=== PATIENT | male | born 1940 | race African-American/Black ===

== ENCOUNTER 2016-06-19 15:22 | Day surgery (SDC) | payer MEDICARE ==
[2016-06-19] MEDS ORDERED: NALOXONE HCL INJ/PF 0.4 MG/1 ML SDV ONE (15:43)
[2016-06-19] MEDS ORDERED: PROMETHAZINE HCL INJ 25 MG/1 ML VIAL ONE (15:43)
[2016-06-19] MEDS ORDERED: FENTANYL CITRATE INJ/PF 100 MCG/2 ML AMPUL ONE ×2 (15:44)
[2016-06-19] MEDS ORDERED: MIDAZOLAM 2 MG/2 ML INJ ONE (15:44)
[2016-06-19] MEDS ORDERED: FLUMAZENIL INJ 0.5 MG/5 ML VIAL IV ONE (15:45)
[2016-06-19] MEDS ORDERED: EPINEPHRINE INJ 1 MG/10 ML DISP.SYRIN ONE (15:45)
[2016-06-19] MEDS ORDERED: GLUCAGON,HUMAN RECOMB 1 MG INJ ONE (15:45)
[2016-06-19] MEDS: MIDAZOLAM 2 MG/2 ML INJ ONE ×2 (17:24→17:40)
--- NOTE | 2016-06-19 18:12 | Operative Report ---
Operative Report DATE OF SURGERY: 06/19/16 Operative Report: Pre-op diagnosis: Anemia Post-op diagnosis: 1. Antral gastritis 2. Polyps in the cecum, transverse, and the sigmoid colon Surgery: Upper endoscopy with biopsy , Colonoscopy with polypectomy Medications: Versed 2mg, Fentanyl 100mcg IV push Tissue removed: Antral biopsy and multiple colon polyps Procedure: After informed consent obtained from patient, patient's pharynx was sprayed with Hurricane and conscious sedation was achieved. The upper endoscope was then inserted into the esophagus under direct vision and advanced into the stomach and further into the duodenum. Detailed examination of the duodenum, stomach and the esophagus was then performed. A digital rectal examination was performed and this was unremarkable. The colonoscope was inserted into the rectum and advanced to the cecum. The appendiceal orifice and the terminal ileum were both identified. The mucosa was examined into details as the colonoscope was slowly pulled out of the patient. The endoscope was retroflexed in the rectum. Patient tolerated the procedure well. Findings Esophagus: Normal Stomach: Mild to moderate erythema in the gastric antrum Duodenum: Normal Cecum: Two 4 mm polyps removed with the cold snare Ascending colon: Normal Transverse colon: 5 mm polyp removed with the cold snare Descending colon: Normal Sigmoid colon: Four 6-11 mm polyps removed with a hot snare Rectum: Normal except for internal hemorrhoids Plan: Await pathology. Continue Nexium. Repeat colonoscopy in three years OPERATION: .
--- NOTE | 2016-06-19 18:13 | PDOC DISCHARGE SUMMARY ---
Discharge Summary (SDC) - Discharge Final Diagnosis: Gastritis and multiple colon polyps Date of Surgery: 06/19/16 Condition: Stable Treatment or Instructions: No new medications Discharge Diet: As Tolerated Discharge Activity: Activity As Tolerated Report the Following to Your Physician Immediately: Vomiting, Redness, Swelling , Warmth
[2016-06-19 19:12] VITALS: BP 134/51
== END 2016-06-19 19:05 | disposition home or self-care (01) ==
LOC: END 15:22
PROVIDERS: ATTEND Internal Medicine Gastroenterology
PROC: 0DBL8ZX Excision of Transverse Colon, Via Natural or Artificial Opening Endoscopic, Diagnostic (ICD-10-PCS; 2016-06-19)
PROC: 0DBN8ZX Excision of Sigmoid Colon, Via Natural or Artificial Opening Endoscopic, Diagnostic (ICD-10-PCS; 2016-06-19)
PROC: 0DB68ZX Excision of Stomach, Via Natural or Artificial Opening Endoscopic, Diagnostic (ICD-10-PCS; principal; 2016-06-19 15:45)
PROC: 0DBH8ZX Excision of Cecum, Via Natural or Artificial Opening Endoscopic, Diagnostic (ICD-10-PCS; 2016-06-19 15:45)
DX: D50.0 Iron deficiency anemia secondary to blood loss (chronic) (principal); K59.01 Slow transit constipation; R63.4 Abnormal weight loss; K29.50 Unspecified chronic gastritis without bleeding; D12.0 Benign neoplasm of cecum; D12.3 Benign neoplasm of transverse colon; D12.5 Benign neoplasm of sigmoid colon; J44.9 Chronic obstructive pulmonary disease, unspecified; D64.9 Anemia, unspecified; I10 Essential (primary) hypertension; E78.00 Pure hypercholesterolemia, unspecified; K92.1 Melena; R63.0 Anorexia; Z79.899 Other long term (current) drug therapy; Z79.51 Long term (current) use of inhaled steroids; Z99.81 Dependence on supplemental oxygen; Z99.3 Dependence on wheelchair; Z68.1 Body mass index [BMI] 19.9 or less, adult
CPT/HCPCS: 43239; 45385; 88342 ×2; 88304 ×2; J2250; J3010; J0171; J1610; J2310; J2550; J3490

== ENCOUNTER 2016-06-26 18:20 | Inpatient (IN) | payer MEDICARE ==
[2016-06-26] MEDS ORDERED: NORMAL SALINE 1000 ML 1,000 ML IV ONE (18:32)
--- NOTE | 2016-06-26 18:56 | ER Document Report ---
ED GI Bleed / Rectal Pain <PADMINI OLSON - Last Filed: 06/26/16 19:52> - General Mode of Arrival: Medic Information source: Patient TRAVEL OUTSIDE OF THE [place] IN LAST 30 DAYS: No - HPI Patient complains to provider of: Dark red bld from rectum Onset: Yesterday Timing/Duration: Sudden, Persistent Recently seen / treated by doctor: Yes - colonoscopy 06/19/2016 <SHELLI DUNNE - Last Filed: 06/26/16 20:35> - General Chief Complaint: Rectal Bleeding Stated Complaint: RECTAL BLEEDING Notes: Patient is a 75-year-old male presenting to the emergency department concerned of rectal bleeding onset last night. Patient thought he was having a bowel movement, but instead blood came out. Patient describes it as very dark red. Patient denies any lightheadedness, but states that he becomes short of breath with walking. Last Saturday patient had a colonoscopy. Polyps as well as gastritis were noted. He received fluid bolus en route. Patient was also continued on a blood thinner. (SHELLI DUNNE) - Related Data Allergies/Adverse Reactions: No Known Allergies Allergy (Verified 06/19/16 15:21) Past Medical History - General Information source: Patient - Social History Smoking Status: Unknown if Ever Smoked Family History: Reviewed & Not Pertinent - Past Medical History Cardiac Medical History: Reports: Hx Atrial Fibrillation - paroxysmal, Hx Coronary Artery Disease, Hx Hypercholesterolemia, Hx Hypertension Denies: Hx Heart Attack Pulmonary Medical History: Reports: Hx Asthma, Hx Bronchitis, Hx COPD, Hx Pneumonia - september 2011, Hx Respiratory Failure Denies: Hx Tuberculosis Neurological Medical History: Denies: Hx Cerebrovascular Accident, Hx Seizures Renal/ Medical History: Reports: Hx Benign Prostatic Hyperplasia, Hx Kidney Stones GI Medical History: Reports: Hx Hiatal Hernia Musculoskeltal Medical History: Reports Hx Arthritis Past Surgical History: Reports: Hx Pacemaker - Immunizations Hx Diphtheria, Pertussis, Tetanus Vaccination: Yes Hx Pneumococcal Vaccination: 04/29/10 <SHELLI DUNNE - Last Filed: 06/26/16 20:35> Review of Systems - Review of Systems Constitutional: No symptoms reported EENT: No symptoms reported Cardiovascular: No symptoms reported. denies: Lightheaded Respiratory: See HPI, Short of breath - With walking Gastrointestinal: No symptoms reported Genitourinary: No symptoms reported Male Genitourinary: No symptoms reported Musculoskeletal: No symptoms reported Skin: No symptoms reported Hematologic/Lymphatic: No symptoms reported Neurological/Psychological: No symptoms reported -: Yes All other systems reviewed and negative <SHELLI DUNNE - Last Filed: 06/26/16 20:35> Physical Exam - Vital signs Interpretation: Hypotensive, Tachycardic - General General appearance: Alert - HEENT Head: Normocephalic, Atraumatic Eyes: Normal Pupils: PERRL - Respiratory Respiratory status: No respiratory distress Chest status: Nontender Breath sounds: Normal Chest palpation: Normal - Cardiovascular Rhythm: Regular Heart sounds: Normal auscultation Murmur: No - Abdominal Inspection: Normal Distension: No distension Bowel sounds: Normal Tenderness: Nontender Organomegaly: No organomegaly - Rectal Stool: Heme positive, Bloody Hemorrhoids: External - Back Back: Normal, Nontender - Extremities General upper extremity: Normal inspection General lower extremity: Normal inspection - Neurological Neuro grossly intact: Yes Cognition: Normal Orientation: AAOx4 Rajeev Coma Scale Eye Opening: Spontaneous Rajeev Coma Scale Verbal: Oriented Rajeev Coma Scale Motor: Obeys Commands Rajeev Coma Scale Total: 15 Speech: Normal - Psychological Associated symptoms: Normal affect, Normal mood - Skin Skin Temperature: Warm Skin Moisture: Dry Skin Color: Normal <UZAIRSHELLI - Last Filed: 06/26/16 20:35> - Vital signs Vitals: Resp Pulse Ox 15 100 06/26/16 18:35 06/26/16 18:35 Course - Laboratory Result Diagrams: 06/26/16 19:02 06/26/16 18:40 <PADMINI OLSON - Last Filed: 06/26/16 19:52> - Laboratory Result Diagrams: 06/26/16 19:02 06/26/16 18:40 - Consults Dr. Douglas Time consulted: 19:38 Dr. Rivas Time consulted: 19:50 Consulted provider: will see as inpatient <SHAWNA DUNNEICA - Last Filed: 06/26/16 20:35> - Vital Signs Vital signs: Temp Pulse Resp BP Pulse Ox 18 139/78 H 100 06/26/16 20:01 06/26/16 20:01 06/26/16 20:01 - Laboratory Laboratory results interpreted by me: 06/26/16 06/26/16 06/26/16 18:35 18:40 18:40 RBC Hgb Hct MCH RDW Seg Neutrophils % Lymphocytes % PT 15.8 H Carbon Dioxide 31 H BUN 25 H AST 12 L Total Protein 5.3 L Albumin 3.1 L Acetaminophen < 10 L Crossmatch See Detail 06/26/16 19:02 RBC 2.86 L Hgb 7.6 L Hct 23.5 L MCH 26.7 L RDW 21.9 H Seg Neutrophils % 80.3 H Lymphocytes % 11.6 L PT Carbon Dioxide BUN AST Total Protein Albumin Acetaminophen Crossmatch - Consults Dr. Douglas Reason for consultation: 06/26/16 19:38 Dr. Douglas paged, awaiting return phone call. 06/26/16 19:41 Dr. Douglas returned call. Discussed patient's case with him. Informed him that the patient is actively bleeding. I will check to see if GI is juvenile probation officer because the roto rooter operator stated that there was no GI doctor juvenile probation officer. (SHELLI DUNNE) Dr. Rivas Reason for consultation: 06/26/16 20:23 discussed patient's case with Dr. Rivas who wants an NG tube and go lightly. Dr. iRvas agrees to accept the patient. 06/26/16 20:35 (SHELLI DUNNE) Critical Care Note - Critical Care Note Total time excluding time spent on procedures (mins): 60 <PADMINI OLSON - Last Filed: 06/26/16 19:52> Discharge - Discharge Admitting Provider: Misael Unit Admitted: ICU <PADMINI OLSON - Last Filed: 06/26/16 19:52> <SHELLI DUNNE - Last Filed: 06/26/16 20:35> - Discharge Clinical Impression: Acute lower GI bleeding, acute blood loss anemia with transfusion Scribe Documentation - Scribe Written by Scribe:: Shelli Dunne 06/26/2016 0875 acting as scribe for :: Norm <SHELLI DUNNE - Last Filed: 06/26/16 20:35>
[2016-06-26 19:06] LABS: PROTHROMBIN TIME 15.8 SEC (11.4-15.4)
[2016-06-26 19:15] LABS: ALANINE AMINOTRANSFERASE 21 U/L (21-72); ALBUMIN 3.1 g/dL (3.5-5.0); ALCOHOL < 10 mg/dL (NONE DETECTED); ALKALINE PHOSPHATASE 54 U/L (38-126); ANION GAP 8 (5-19); ASPARTATE AMINO TRANSFERASE 12 U/L (17-59); BILIRUBIN,TOTAL 0.3 mg/dL (0.2-1.3); BLOOD UREA NITROGEN 25 mg/dL (7-20); CALCIUM 9.5 mg/dL (8.4-10.2); CARBON DIOXIDE 31 mmol/L (22-30); CHLORIDE 100 mmol/L (98-107); CREATININE RESULT 0.79 mg/dL (0.52-1.25); GLUCOSE 104 mg/dL (75-110); POTASSIUM 4.2 mmol/L (3.6-5.0); SODIUM 139.1 mmol/L (137-145); TOTAL PROTEIN 5.3 g/dL (6.3-8.2)
[2016-06-26 19:17] LABS: ABSOLUTE LYMPHOCYTES (AUTO) 0.7 10^3/uL (0.5-4.7); ABSOLUTE MONOCYTES (AUTO) 0.5 10^3/uL (0.1-1.4); ABSOLUTE NEUT (AUTO) 5.1 10^3/uL (1.7-8.2); BASOPHILS % (AUTO) 0.4 % (0-2); EOSINOPHILS % (AUTO) 0.4 % (0-6); HEMATOCRIT 23.5 % (37.9-51.0); HGB HCT DIFFERENCE -0.7; LYMPHOCYTES % (AUTO) 11.6 % (13-45); MEAN CORPUSCULAR HEMOGLOBIN 26.7 pg (27.0-33.4); MEAN CORPUSCULAR HGB CONC 32.5 g/dL (32.0-36.0); MEAN CORPUSCULAR VOLUME 82 fl (80-97); MONOCYTES % (AUTO) 7.3 % (3-13); RED BLOOD COUNT 2.86 10^6/uL (4.35-5.55); RED CELL DISTRIBUTION WIDTH 21.9 % (11.5-14.0); SEGMENTED NEUTROPHILS % (AUTO) 80.3 % (42-78); WHITE BLOOD COUNT 6.3 10^3/uL (4.0-10.5)
[2016-06-26 19:25] LABS: CREATINE KINASE MB < 0.22 ng/mL (<4.55); TROPONIN I < 0.012 ng/mL
[2016-06-26 19:25] LABS: HEMOGLOBIN 7.6 g/dL (13.5-17.0)
[2016-06-26] MEDS ORDERED: NORMAL SALINE 250 ML IV PRN ×2 (19:35)
[2016-06-26] MEDS ORDERED: PEG 3350/NA SULF,BICARB,CL/KCL 4000 ML NG ONE (19:49)
[2016-06-26 20:30] LABS: LIPASE 73.9 U/L (23-300); MAGNESIUM 1.6 mg/dL (1.6-2.3); PHOSPHORUS 2.9 mg/dL (2.5-4.5)
[2016-06-26 21:01] LABS: THYROID STIMULATING HORMONE 1.74 uIU/mL (0.47-4.68)
[2016-06-26] MEDS ORDERED: NALOXONE HCL INJ/PF 0.4 MG/1 ML SDV ONE (22:58)
[2016-06-26] MEDS ORDERED: PROMETHAZINE HCL INJ 25 MG/1 ML VIAL ONE (22:58)
[2016-06-26] MEDS ORDERED: EPINEPHRINE INJ 1 MG/10 ML DISP.SYRIN ONE (22:59)
[2016-06-26] MEDS ORDERED: FENTANYL CITRATE INJ/PF 100 MCG/2 ML AMPUL ONE (22:59)
[2016-06-26] MEDS ORDERED: GLUCAGON,HUMAN RECOMB 1 MG INJ ONE (22:59)
[2016-06-26] MEDS ORDERED: FLUMAZENIL INJ 0.5 MG/5 ML VIAL IV ONE (22:59)
[2016-06-26] MEDS ORDERED: MIDAZOLAM 2 MG/2 ML INJ ONE (22:59)
[2016-06-27 00:52] LABS: ABSOLUTE LYMPHOCYTES (AUTO) 1.2 10^3/uL (0.5-4.7); ABSOLUTE MONOCYTES (AUTO) 0.5 10^3/uL (0.1-1.4); ABSOLUTE NEUT (AUTO) 6.7 10^3/uL (1.7-8.2); BASOPHILS % (AUTO) 0.3 % (0-2); EOSINOPHILS % (AUTO) 0.2 % (0-6); HEMATOCRIT 27.5 % (37.9-51.0); HEMOGLOBIN 9.1 g/dL (13.5-17.0); HGB HCT DIFFERENCE -0.2; LYMPHOCYTES % (AUTO) 14.2 % (13-45); MEAN CORPUSCULAR HEMOGLOBIN 27.6 pg (27.0-33.4); MEAN CORPUSCULAR VOLUME 84 fl (80-97); MONOCYTES % (AUTO) 6.1 % (3-13); RED BLOOD COUNT 3.29 10^6/uL (4.35-5.55); SEGMENTED NEUTROPHILS % (AUTO) 79.2 % (42-78); WHITE BLOOD COUNT 8.5 10^3/uL (4.0-10.5)
[2016-06-27] MEDS ORDERED: PEG 3350/NA SULF,BICARB,CL/KCL 4000 ML PO ONE (01:00)
[2016-06-27] MEDS ORDERED: MESALAMINE 400 MG CAPSULE.DR PO ONE ×2 (01:15→02:44)
--- NOTE | 2016-06-27 01:43 | OPERATIVE REPORT E ---
Operative Report NAME: BROCK CAMP : 1940 AGE: 75Y DATE OF SURGERY: 06/27/2016 ROOM: ED08 PREOPERATIVE DIAGNOSIS: Rectal bleeding. POSTOPERATIVE DIAGNOSES: 1. Post polypectomy. 2. Ulcer with active bleeding in the sigmoid colon. PROCEDURE PERFORMED: Colonoscopy with *------* bleeding. SURGEON: LOAN LEDESMA M.D. ANESTHESIA: Versed 2 mg and Fentanyl 50 mcg IV push. TISSUE REMOVED OR ALTERED: None. DESCRIPTION OF PROCEDURE: After informed consent obtained from patient, conscious sedation was achieved. The colonoscope was inserted into the rectum. There was fresh blood noted over the left colon and very dark stool with *------* blood in the right colon. Active bleeding with a fresh clot was noted over an ulcer in the sigmoid colon and about 30 cm. The base of the ulcer was injected with epinephrine, mixed half and half with normal saline. The polypectomy site was then clipped with 2 Endo clips. There was no active bleeding at the end of the procedure. I did not see any other bleeding sites in the colon. View of the colon was very limited on the right side due to stool. He tolerated the procedure well. PLAN: Continue to follow H and H. I will give him GoLYTELY to clean out his colon in case his procedure needs to be repeated. I will suggest we hold anticoagulant for a few days. DICTATING PHYSICIAN: LOAN LEDESMA M.D. [id number] PHY#: [id number] ID: [id number] JOB#: [id number] ACCT: [id number] cc:Augusto BONE M.D. >
--- NOTE | 2016-06-27 02:58 | CONSULTATION REPORT E ---
Consultation Report NAME: BROCK CAMP : 1940 AGE: 75Y DATE: 06/26/2016 ED08 A TO: LOAN LEDESMA M.D. FROM: SIDRA IBARRA M.D. Requesting Physician HISTORY OF PRESENT ILLNESS: A 75-year-old patient who came into the hospital with rectal bleeding. He had a colonoscopy on 06/19/16 with removal of polyps from the cecum, transverse colon, and the sigmoid colon. He started his Pradaxa about 24-36 hours afterwards. He noticed a little bit of bleeding last night but it got worse today prior to presenting to the emergency room. He denies abdominal pain. On admission, he was hypotensive and required 2 L of fluid. He has since received 2 units of blood and his heart rate remains at 106 with a blood pressure of 120 systolic. PAST MEDICAL HISTORY: 1. COPD. 2. Hypertension. 3. Hypercholesterolemia. 4. Iron deficiency anemia. 5. Colon polyps. PAST SURGICAL HISTORY: 1. EGD. 2. Colonoscopy in 2009 and again a week ago. ALLERGIES: None. SOCIAL HISTORY: Noncontributory. He is accompanied by his daughter. REVIEW OF SYSTEMS: Noncontributory. PHYSICAL EXAMINATION: GENERAL: The patient is in no distress. HEENT: There is pallor but no jaundice. Oropharynx normal. NECK: No bruit. No JVD. CHEST: No deformity. LUNGS: Clear. S1, S2 normal without murmurs. ABDOMEN: Soft and nontender. No masses felt. LABORATORY DATA: Hemoglobin 7.6 upon arrival in the emergency room. His Chem-7 was normal and LFTs were also normal except for a BUN of 25. ASSESSMENT AND PLAN: Acute GI bleeding. Patient is almost certainly bleeding from one of his polypectomy sites. He had 2 polyps removed from the cecum, 1 from the transverse colon with a cold snare, and 4 from the sigmoid colon with the hot snare. He will undergo *------* colonoscopy. DICTATING PHYSICIAN: LOAN LEDESMA M.D. [id number] PHY#: [id number] ID: [id number] JOB#: [id number] ACCT: [id number] cc:SIDRA IBARRA M.D. LAON LEDESMA M.D. >
[2016-06-27 07:19] LABS: ABSOLUTE LYMPHOCYTES (AUTO) 1.1 10^3/uL (0.5-4.7); ABSOLUTE MONOCYTES (AUTO) 0.7 10^3/uL (0.1-1.4); ABSOLUTE NEUT (AUTO) 8.2 10^3/uL (1.7-8.2); BASOPHILS % (AUTO) 0.3 % (0-2); EOSINOPHILS % (AUTO) 0.2 % (0-6); HEMATOCRIT 26.8 % (37.9-51.0); HEMOGLOBIN 8.9 g/dL (13.5-17.0); HGB HCT DIFFERENCE -0.1; LYMPHOCYTES % (AUTO) 11.3 % (13-45); MEAN CORPUSCULAR HEMOGLOBIN 27.3 pg (27.0-33.4); MEAN CORPUSCULAR HGB CONC 33.1 g/dL (32.0-36.0); MEAN CORPUSCULAR VOLUME 83 fl (80-97); MONOCYTES % (AUTO) 6.9 % (3-13); RED BLOOD COUNT 3.25 10^6/uL (4.35-5.55); RED CELL DISTRIBUTION WIDTH 22.3 % (11.5-14.0); SEGMENTED NEUTROPHILS % (AUTO) 81.3 % (42-78); WHITE BLOOD COUNT 10.1 10^3/uL (4.0-10.5)
[2016-06-27 07:56] LABS: ALANINE AMINOTRANSFERASE 22 U/L (21-72); ALBUMIN 3.1 g/dL (3.5-5.0); ALKALINE PHOSPHATASE 53 U/L (38-126); ANION GAP 8 (5-19); ASPARTATE AMINO TRANSFERASE 14 U/L (17-59); BILIRUBIN,TOTAL 0.6 mg/dL (0.2-1.3); BLOOD UREA NITROGEN 21 mg/dL (7-20); CALCIUM 9.1 mg/dL (8.4-10.2); CARBON DIOXIDE 29 mmol/L (22-30); CHLORIDE 104 mmol/L (98-107); CHOLESTEROL 120.02 mg/dL (0-200); CREATININE RESULT 0.68 mg/dL (0.52-1.25); Direct HDL 68 mg/dL (>40); GLUCOSE 108 mg/dL (75-110); POTASSIUM 4.3 mmol/L (3.6-5.0); SODIUM 140.7 mmol/L (137-145); TOTAL PROTEIN 5.2 g/dL (6.3-8.2); TRIGLYCERIDES 94 mg/dL (<150)
[2016-06-27 07:57] LABS: DIRECT LDL < 30 mg/dL (<100)
--- NOTE | 2016-06-27 08:30 | EKG REPORT ---
SEVERITY:- ABNORMAL ECG - SINUS TACHYCARDIA ANTERIOR INFARCT, AGE INDETERMINATE : Confirmed by: David Riley MD 27-Jun-2016 08:29:07
[2016-06-27] MEDS: MESALAMINE 400 MG CAPSULE.DR PO SCH ×2 (13:12→18:19)
--- NOTE | 2016-06-27 14:45 | PDOC H&P ---
History of Present Illness Admission Date/PCP: 06/26/16 19:56 SIDRA IBARRA MD History of Present Illness: BROCK CAMP is a 75 year old male, history of chronic atrial fibrillation on chronic anticoagulation,he had colonoscopy on 06/19/2016, he polyps removed from the colon He came to emergency room with rectal bleeding, when he presented he was hypotensive with hemoglobin 7, he was treated in the emergency room with normal saline and subsequently receive 2 units of packed red blood cells. He was seen by GI physician, He had Emergency Colonoscopy and was found to have ulcer in the sigmoid colon that was actively bleeding. The ulcer base was injected with epinephrine,the bleeding is presently controlled. Past Medical History Cardiac Medical History: Reports: Atrial Fibrillation - paroxysmal, Coronary Artery Disease, Hyperlipidema, Hypertension Pulmonary Medical History: Reports: Asthma, Bronchitis, Chronic Obstructive Pulmonary Disease (COPD), Pneumonia - september 2011, Respiratory Failure GI Medical History: Reports: Hiatal Hernia Musculoskeltal Medical History: Reports: Arthritis Hematology: Reports: Anemia - chronic Past Surgical History Past Surgical History: Reports: Pacemaker Social History Information Source: Patient Smoking Status: Former Smoker Frequency of Alcohol Use: None Hx Recreational Drug Use: No Hx Prescription Drug Abuse: No - Advance Directive Resuscitation Status: Full Code Family History Family History: Reviewed & Not Pertinent Parental Family History Reviewed: Yes Children Family History Reviewed: Yes Sibling(s) Family History Reviewed.: Yes Medication/Allergy Home Medications: Dabigatran Etexilate Mesylate [Pradaxa 150 mg Capsule] 150 mg PO BID 06/27/16 Diltiazem HCl [Diltiazem ER] 180 mg PO DAILY 06/27/16 Docusate Sodium [Colace 100 mg Capsule] 100 mg PO BID 06/27/16 Esomeprazole Magnesium [Nexium] 40 mg PO DAILY 06/27/16 Finasteride [Proscar 5 mg Tablet] 5 mg PO DAILY 06/27/16 Fluticasone/Salmeterol [Advair 250-50 Diskus 28 dose] 1 puff IH Q12 06/27/16 Hydrochlorothiazide [Hydrodiuril 25 mg Tablet] 25 mg PO DAILY 06/27/16 Megestrol Acetate 40 mg PO DAILY 06/27/16 Montelukast Sodium [Singulair 10 mg Tablet] 10 mg PO QPM 06/27/16 Roflumilast [Daliresp 500 mcg Tablet] 500 mg PO DAILY 06/27/16 Sertraline HCl [Zoloft 50 mg Tablet] 50 mg PO DAILY 06/27/16 Simvastatin [Zocor 40 mg Tablet] 40 mg PO QPM 06/27/16 Tamsulosin HCl [Flomax 0.4 mg Cap.sr] 2 cap PO QHS 06/27/16 Tiotropium [place] [Spiriva Handihaler 18 mcg/dose (30 Dose)] 1 cap IH DAILY 05/15 Allergies/Adverse Reactions: No Known Allergies Allergy (Verified 06/19/16 15:21) Review of Systems Constitutional: PRESENT: weight loss Eyes: ABSENT: visual disturbances Ears: ABSENT: hearing changes Cardiovascular: ABSENT: chest pain, dyspnea on exertion, edema, orthropnea, palpitations Respiratory: ABSENT: cough, hemoptysis Gastrointestinal: PRESENT: hematochezia Genitourinary: ABSENT: dysuria, hematuria Musculoskeletal: ABSENT: joint swelling Integumentary: ABSENT: rash, wounds Neurological: ABSENT: abnormal gait, abnormal speech, confusion, dizziness, focal weakness, syncope Psychiatric: ABSENT: anxiety, depression, homidical ideation, suicidal ideation Endocrine: ABSENT: cold intolerance, heat intolerance, menstrual abnormalities, polydipsia, polyuria Hematologic/Lymphatic: ABSENT: easy bleeding, easy bruising, lymphadenopathy Physical Exam Vital Signs: Temp Pulse Resp BP Pulse Ox 98.1 F 96 20 110/65 94 06/27/16 12:00 06/27/16 12:12 06/27/16 12:00 06/27/16 12:00 06/27/16 12:00 Intake & Output 06/26/16 06/27/16 06/28/16 06:59 06:59 06:59 Intake Total 1600 Balance 1600 Weight 75 kg General appearance: PRESENT: thin Head exam: PRESENT: atraumatic, normocephalic Eye exam: PRESENT: conjunctiva pink, EOMI, PERRLA Mouth exam: PRESENT: moist Neck exam: PRESENT: full ROM Cardiovascular exam: PRESENT: RRR, +S1, +S2 Vascular exam: PRESENT: normal capillary refill GI/Abdominal exam: PRESENT: normal bowel sounds, soft Rectal exam: PRESENT: deferred Neurological exam: PRESENT: alert, awake, oriented to person, oriented to place , oriented to time, oriented to situation, CN II-XII grossly intact Psychiatric exam: PRESENT: appropriate affect, normal mood Skin exam: PRESENT: dry, intact, warm Results Laboratory Results: 06/27/16 07:14 06/27/16 07:14 06/26/16 06/27/16 06/27/16 20:30 00:37 07:14 WBC 8.5 10.1 RBC 3.29 L 3.25 L Hgb 9.1 L 8.9 L Hct 27.5 L 26.8 L MCV 84 83 MCH 27.6 27.3 MCHC 33.0 33.1 RDW 22.0 H 22.3 H Plt Count 183 172 Seg Neutrophils % 79.2 H 81.3 H Lymphocytes % 14.2 11.3 L Monocytes % 6.1 6.9 Eosinophils % 0.2 0.2 Basophils % 0.3 0.3 Absolute Neutrophils 6.7 8.2 Absolute Lymphocytes 1.2 1.1 Absolute Monocytes 0.5 0.7 Absolute Eosinophils 0.0 0.0 Absolute Basophils 0.0 0.0 Sodium Potassium Chloride Carbon Dioxide Anion Gap BUN Creatinine Est GFR ( Amer) Est GFR (Non-Af Amer) Glucose Lactic Acid 1.7 Calcium Total Bilirubin AST ALT Alkaline Phosphatase Ammonia Total Protein Albumin Triglycerides Cholesterol LDL Cholesterol Direct VLDL Cholesterol HDL Cholesterol 06/27/16 06/27/16 07:14 07:14 WBC RBC Hgb Hct MCV MCH MCHC RDW Plt Count Seg Neutrophils % Lymphocytes % Monocytes % Eosinophils % Basophils % Absolute Neutrophils Absolute Lymphocytes Absolute Monocytes Absolute Eosinophils Absolute Basophils Sodium 140.7 Potassium 4.3 Chloride 104 Carbon Dioxide 29 Anion Gap 8 BUN 21 H Creatinine 0.68 Est GFR ( Amer) > 60 Est GFR (Non-Af Amer) > 60 Glucose 108 Lactic Acid Calcium 9.1 Total Bilirubin 0.6 AST 14 L ALT 22 Alkaline Phosphatase 53 Ammonia 8.9 L Total Protein 5.2 L Albumin 3.1 L Triglycerides 94 Cholesterol 120.02 LDL Cholesterol Direct < 30 VLDL Cholesterol 19.0 HDL Cholesterol 68 06/27/16 06/27/16 06/27/16 00:37 00:37 07:14 Creatine Kinase 29 L 43 L Troponin I < 0.012 06/27/16 06/27/16 06/27/16 07:14 12:39 12:39 Creatine Kinase 41 L Troponin I < 0.012 < 0.012 Assessment & Plan - Diagnosis (1) Acute lower gastrointestinal bleeding Is this a current diagnosis for this admission?: Yes (2) Chronic atrial fibrillation Is this a current diagnosis for this admission?: YesPlan: Patient is on chronic anticoagulation with pradaxa, will hold on pradaxa at the moment (3) Chronic obstructive pulmonary disease Qualifiers: COPD type: unspecified COPD Qualified Code(s): J44.9 - Chronic obstructive pulmonary disease, unspecified Is this a current diagnosis for this admission?: Yes (4) Hypovolemia due to hemorrhage Is this a current diagnosis for this admission?: YesPlan: He presented with hypotension on due GI bleed, status post blood transfusion presently hemodynamically stable. He will be admitted into ICU for close monitoring
--- NOTE | 2016-06-27 14:59 | PDOC PROGRESS REPORT ---
Subjective Progress Note for:: 06/27/16 Subjective:: Patient was seen by the bedside, still have rectal bleed, probably will have another colonoscopy . He is presently being prep for another colonoscopy Physical Exam Vital Signs: Temp Pulse Resp BP Pulse Ox 98.1 F 96 21 H 127/62 H 96 06/27/16 12:00 06/27/16 12:12 06/27/16 14:35 06/27/16 14:35 06/27/16 14:35 Intake & Output 06/26/16 06/27/16 06/28/16 06:59 06:59 06:59 Intake Total 1600 Balance 1600 Weight 75 kg General appearance: PRESENT: no acute distress, well-developed, well-nourished Head exam: PRESENT: atraumatic, normocephalic Eye exam: PRESENT: conjunctiva pink, EOMI, PERRLA Neck exam: PRESENT: full ROM Respiratory exam: PRESENT: clear to auscultation usman Cardiovascular exam: PRESENT: RRR, +S1, +S2 GI/Abdominal exam: PRESENT: normal bowel sounds, soft Rectal exam: PRESENT: deferred Neurological exam: PRESENT: alert, awake, oriented to person, oriented to place , oriented to time, oriented to situation, CN II-XII grossly intact Psychiatric exam: PRESENT: appropriate affect, normal mood Skin exam: PRESENT: dry, intact, warm Results Laboratory Results: 06/27/16 07:14 06/27/16 07:14 06/26/16 06/27/16 06/27/16 20:30 00:37 07:14 WBC 8.5 10.1 RBC 3.29 L 3.25 L Hgb 9.1 L 8.9 L Hct 27.5 L 26.8 L MCV 84 83 MCH 27.6 27.3 MCHC 33.0 33.1 RDW 22.0 H 22.3 H Plt Count 183 172 Seg Neutrophils % 79.2 H 81.3 H Lymphocytes % 14.2 11.3 L Monocytes % 6.1 6.9 Eosinophils % 0.2 0.2 Basophils % 0.3 0.3 Absolute Neutrophils 6.7 8.2 Absolute Lymphocytes 1.2 1.1 Absolute Monocytes 0.5 0.7 Absolute Eosinophils 0.0 0.0 Absolute Basophils 0.0 0.0 Sodium Potassium Chloride Carbon Dioxide Anion Gap BUN Creatinine Est GFR ( Amer) Est GFR (Non-Af Amer) Glucose Lactic Acid 1.7 Calcium Total Bilirubin AST ALT Alkaline Phosphatase Ammonia Total Protein Albumin Triglycerides Cholesterol LDL Cholesterol Direct VLDL Cholesterol HDL Cholesterol 06/27/16 06/27/16 07:14 07:14 WBC RBC Hgb Hct MCV MCH MCHC RDW Plt Count Seg Neutrophils % Lymphocytes % Monocytes % Eosinophils % Basophils % Absolute Neutrophils Absolute Lymphocytes Absolute Monocytes Absolute Eosinophils Absolute Basophils Sodium 140.7 Potassium 4.3 Chloride 104 Carbon Dioxide 29 Anion Gap 8 BUN 21 H Creatinine 0.68 Est GFR ( Amer) > 60 Est GFR (Non-Af Amer) > 60 Glucose 108 Lactic Acid Calcium 9.1 Total Bilirubin 0.6 AST 14 L ALT 22 Alkaline Phosphatase 53 Ammonia 8.9 L Total Protein 5.2 L Albumin 3.1 L Triglycerides 94 Cholesterol 120.02 LDL Cholesterol Direct < 30 VLDL Cholesterol 19.0 HDL Cholesterol 68 06/27/16 06/27/16 06/27/16 00:37 00:37 07:14 Creatine Kinase 29 L 43 L Troponin I < 0.012 06/27/16 06/27/16 06/27/16 07:14 12:39 12:39 Creatine Kinase 41 L Troponin I < 0.012 < 0.012 Assessment & Plan - Diagnosis (1) Acute lower gastrointestinal bleeding Is this a current diagnosis for this admission?: Yes (2) Chronic atrial fibrillation Is this a current diagnosis for this admission?: Yes (3) Chronic obstructive pulmonary disease Qualifiers: COPD type: unspecified COPD Qualified Code(s): J44.9 - Chronic obstructive pulmonary disease, unspecified Is this a current diagnosis for this admission?: Yes (4) Hypovolemia due to hemorrhage Is this a current diagnosis for this admission?: Yes
[2016-06-27] MEDS ORDERED: ROFLUMILAST 500 MG PO SCH (15:00)
[2016-06-27] MEDS ORDERED: LANSOPRAZOLE 30 MG TAB.RAP.DR PO ONE (15:30)
[2016-06-27] MEDS ORDERED: ROFLUMILAST 500 MCG TABLET PO ONE (15:30)
[2016-06-27] MEDS ORDERED: SERTRALINE HCL 50 MG TABLET PO ONE (16:00)
[2016-06-27] MEDS ORDERED: FINASTERIDE 5 MG TABLET PO ONE (16:00)
[2016-06-27] MEDS ORDERED: TIOTROPIUM BROMIDE DPI 5 CAP/KIT (18 MCG/CAP) IH ONE (16:00)
[2016-06-27] MEDS: FLUTICASONE/SALMETEROL DISKUS 250-50 MCG/DOSE IH SCH (18:19)
[2016-06-27] MEDS: SIMVASTATIN 40 MG TABLET PO SCH (18:19)
[2016-06-27] MEDS: TAMSULOSIN HCL 0.4 MG CAP.SR.24H PO SCH (18:19)
[2016-06-27] MEDS: MONTELUKAST SODIUM 10 MG TABLET PO SCH (18:20)
[2016-06-27 18:57] LABS: HEMATOCRIT 27.1 % (37.9-51.0); HGB HCT DIFFERENCE -0.1; MEAN CORPUSCULAR HEMOGLOBIN 27.4 pg (27.0-33.4); MEAN CORPUSCULAR HGB CONC 33.4 g/dL (32.0-36.0); MEAN CORPUSCULAR VOLUME 82 fl (80-97); RED BLOOD COUNT 3.29 10^6/uL (4.35-5.55); RED CELL DISTRIBUTION WIDTH 22.7 % (11.5-14.0)
[2016-06-28 04:46] LABS: ABSOLUTE MONOCYTES (AUTO) 0.5 10^3/uL (0.1-1.4); ABSOLUTE NEUT (AUTO) 3.9 10^3/uL (1.7-8.2); BASOPHILS % (AUTO) 0.5 % (0-2); EOSINOPHILS % (AUTO) 0.8 % (0-6); HGB HCT DIFFERENCE 0.5; LYMPHOCYTES % (AUTO) 17.8 % (13-45); MEAN CORPUSCULAR HEMOGLOBIN 27.5 pg (27.0-33.4); MEAN CORPUSCULAR HGB CONC 33.9 g/dL (32.0-36.0); MEAN CORPUSCULAR VOLUME 81 fl (80-97); RED BLOOD COUNT 2.72 10^6/uL (4.35-5.55); RED CELL DISTRIBUTION WIDTH 22.2 % (11.5-14.0); SEGMENTED NEUTROPHILS % (AUTO) 71.9 % (42-78); WHITE BLOOD COUNT 5.4 10^3/uL (4.0-10.5)
[2016-06-28 04:48] LABS: HEMOGLOBIN 7.5 g/dL (13.5-17.0)
[2016-06-28 05:05] LABS: ALANINE AMINOTRANSFERASE 27 U/L (21-72); ALBUMIN 2.6 g/dL (3.5-5.0); ALKALINE PHOSPHATASE 47 U/L (38-126); ANION GAP 6 (5-19); ASPARTATE AMINO TRANSFERASE 12 U/L (17-59); BILIRUBIN,TOTAL 0.4 mg/dL (0.2-1.3); BLOOD UREA NITROGEN 10 mg/dL (7-20); CALCIUM 9.1 mg/dL (8.4-10.2); CARBON DIOXIDE 30 mmol/L (22-30); CHLORIDE 102 mmol/L (98-107); CREATININE RESULT 0.75 mg/dL (0.52-1.25); GLUCOSE 85 mg/dL (75-110); POTASSIUM 3.6 mmol/L (3.6-5.0); SODIUM 137.8 mmol/L (137-145); TOTAL PROTEIN 4.4 g/dL (6.3-8.2)
[2016-06-28] MEDS: DILTIAZEM HCL 180 MG CAPSULE.CR PO SCH (12:23)
[2016-06-28] MEDS: FINASTERIDE 5 MG TABLET PO SCH (12:25)
[2016-06-28] MEDS: LANSOPRAZOLE 30 MG TAB.RAP.DR PO SCH (12:26)
[2016-06-28] MEDS: MESALAMINE 400 MG CAPSULE.DR PO SCH ×3 (12:26→19:14)
[2016-06-28] MEDS: ROFLUMILAST 500 MCG TABLET PO SCH (12:26)
[2016-06-28] MEDS: TIOTROPIUM BROMIDE DPI 5 CAP/KIT (18 MCG/CAP) IH SCH (12:27)
[2016-06-28] MEDS: SERTRALINE HCL 50 MG TABLET PO SCH (12:27)
[2016-06-28] MEDS: FLUTICASONE/SALMETEROL DISKUS 250-50 MCG/DOSE IH SCH ×2 (12:27→19:14)
--- NOTE | 2016-06-28 14:16 | Physician Advisory Note ---
Physician Advisor ProgressNote .: Pursuant to the plan for [facility], I have reviewed the medical record for this patient. Physician Advisor Statement: Possible documentation opportunities if attending agrees: 1. "Acute Blood Loss Anemia due to LGIBleeding, due to " 2. "underweight with protein-calorie malnutrition [state mild, mod, or severe] with BMI __, ____[?wt loss, ?appetite loss, ]" [if possible, give specifics on intake, wt loss, loss of SQ fat & muscle mass, diminished hand boat rigger strength, & clinical importance such as (A) nutritional assessment ordered, (B) modified diet or supplements ordered, (C) additional labs ordered, (D) prolonged wound healing time, (E) delayed infxn clearance] - - - Auditors are strict about the dx of malnutrition - needs to be explicitly spelled out. As always, if concerned about any unstable VS or abnormal labs, please comment on them & note what doing about them, & please document each day the potential clinical problems you are concerned could occur if pt not kept in hospital for tx at this time. Thanks for your help with documentation accuracy/specificity improvement! Alejandra Lundberg MD [facility] Physician Advisor, Fellow of Hospital Medicine
[2016-06-28] MEDS: LEVOFLOXACIN 750 MG/D5W RTU 750 MG/150 ML RTUPB IV SCH (16:02)
[2016-06-28 17:35] LABS: ABSOLUTE LYMPHOCYTES (AUTO) 0.8 10^3/uL (0.5-4.7); ABSOLUTE MONOCYTES (AUTO) 0.5 10^3/uL (0.1-1.4); ABSOLUTE NEUT (AUTO) 4.4 10^3/uL (1.7-8.2); BASOPHILS % (AUTO) 0.3 % (0-2); EOSINOPHILS % (AUTO) 0.6 % (0-6); HEMATOCRIT 30.7 % (37.9-51.0); HGB HCT DIFFERENCE 0.8; LYMPHOCYTES % (AUTO) 13.9 % (13-45); MEAN CORPUSCULAR HGB CONC 34.1 g/dL (32.0-36.0); MEAN CORPUSCULAR VOLUME 82 fl (80-97); MONOCYTES % (AUTO) 8.7 % (3-13); RED BLOOD COUNT 3.75 10^6/uL (4.35-5.55); SEGMENTED NEUTROPHILS % (AUTO) 76.5 % (42-78); WHITE BLOOD COUNT 5.7 10^3/uL (4.0-10.5)
[2016-06-28 17:40] LABS: HEMOGLOBIN 10.5 g/dL (13.5-17.0)
--- NOTE | 2016-06-28 19:06 | PDOC PROGRESS REPORT ---
Subjective Progress Note for:: 06/28/16 Subjective:: Patient was seen by the bedside, he is still bleeding, hemoglobin was 7 this morning, he was transfused with 2 units of packed red pulses and posttransfusion hemoglobin is 10 Physical Exam Vital Signs: Temp Pulse Resp BP Pulse Ox 98.9 F 84 28 H 108/54 L 99 06/28/16 18:00 06/28/16 15:09 06/28/16 15:09 06/28/16 15:09 06/28/16 15:09 Intake & Output 06/27/16 06/28/16 06/29/16 06:59 06:59 06:59 Intake Total 1600 200 600 Output Total 1700 880 Balance 1600 -1500 -280 Weight 75 kg 66.2 kg General appearance: PRESENT: mild distress Eye exam: PRESENT: PERRLA Respiratory exam: PRESENT: decreased breath sounds Cardiovascular exam: PRESENT: +S1, +S2 GI/Abdominal exam: PRESENT: soft Neurological exam: PRESENT: alert, CN II-XII grossly intact Results Laboratory Results: 06/28/16 17:23 06/28/16 04:20 06/28/16 06/28/16 06/28/16 04:20 04:20 04:20 WBC 5.4 RBC 2.72 L Hgb 7.5 L Hct 22.0 L MCV 81 MCH 27.5 MCHC 33.9 RDW 22.2 H Plt Count 136 L Seg Neutrophils % 71.9 Lymphocytes % 17.8 Monocytes % 9.0 Eosinophils % 0.8 Basophils % 0.5 Absolute Neutrophils 3.9 Absolute Lymphocytes 1.0 Absolute Monocytes 0.5 Absolute Eosinophils 0.0 Absolute Basophils 0.0 Sodium 137.8 Potassium 3.6 Chloride 102 Carbon Dioxide 30 Anion Gap 6 BUN 10 Creatinine 0.75 Est GFR ( Amer) > 60 Est GFR (Non-Af Amer) > 60 Glucose 85 Calcium 9.1 Total Bilirubin 0.4 AST 12 L ALT 27 Alkaline Phosphatase 47 Ammonia < 8.7 L Total Protein 4.4 L Albumin 2.6 L 06/28/16 17:23 WBC 5.7 RBC 3.75 L Hgb 10.5 L D Hct 30.7 L MCV 82 MCH 28.0 MCHC 34.1 RDW 20.0 H Plt Count 140 L Seg Neutrophils % 76.5 Lymphocytes % 13.9 Monocytes % 8.7 Eosinophils % 0.6 Basophils % 0.3 Absolute Neutrophils 4.4 Absolute Lymphocytes 0.8 Absolute Monocytes 0.5 Absolute Eosinophils 0.0 Absolute Basophils 0.0 Sodium Potassium Chloride Carbon Dioxide Anion Gap BUN Creatinine Est GFR ( Amer) Est GFR (Non-Af Amer) Glucose Calcium Total Bilirubin AST ALT Alkaline Phosphatase Ammonia Total Protein Albumin 06/27/16 06/27/16 06/27/16 00:37 00:37 07:14 Creatine Kinase 29 L 43 L Troponin I < 0.012 06/27/16 06/27/16 06/27/16 07:14 12:39 12:39 Creatine Kinase 41 L Troponin I < 0.012 < 0.012 Assessment & Plan - Diagnosis (1) Acute lower gastrointestinal bleeding Is this a current diagnosis for this admission?: YesPlan: Patient still have ongoing GI bleed, transfused 2 units of packed red blood cells (2) Chronic atrial fibrillation Is this a current diagnosis for this admission?: Yes (3) Chronic obstructive pulmonary disease Qualifiers: COPD type: unspecified COPD Qualified Code(s): J44.9 - Chronic obstructive pulmonary disease, unspecified Is this a current diagnosis for this admission?: Yes (4) Hypovolemia due to hemorrhage Is this a current diagnosis for this admission?: YesPlan: Patient is hemodynamically stable at this time, he will be downgraded to telemetry bed
[2016-06-28] MEDS: MONTELUKAST SODIUM 10 MG TABLET PO SCH (19:13)
[2016-06-28] MEDS: TAMSULOSIN HCL 0.4 MG CAP.SR.24H PO SCH (19:13)
[2016-06-28] MEDS: SIMVASTATIN 40 MG TABLET PO SCH (19:13)
[2016-06-29 00:24] LABS: ABSOLUTE LYMPHOCYTES (AUTO) 0.7 10^3/uL (0.5-4.7); ABSOLUTE MONOCYTES (AUTO) 0.5 10^3/uL (0.1-1.4); BASOPHILS % (AUTO) 0.4 % (0-2); EOSINOPHILS % (AUTO) 0.5 % (0-6); HEMATOCRIT 28.8 % (37.9-51.0); HGB HCT DIFFERENCE 1.2; MEAN CORPUSCULAR HEMOGLOBIN 28.3 pg (27.0-33.4); MEAN CORPUSCULAR HGB CONC 34.8 g/dL (32.0-36.0); MEAN CORPUSCULAR VOLUME 81 fl (80-97); MONOCYTES % (AUTO) 9.1 % (3-13); RED BLOOD COUNT 3.54 10^6/uL (4.35-5.55); RED CELL DISTRIBUTION WIDTH 19.8 % (11.5-14.0); WHITE BLOOD COUNT 5.2 10^3/uL (4.0-10.5)
[2016-06-29 03:54] LABS: ABSOLUTE LYMPHOCYTES (AUTO) 0.6 10^3/uL (0.5-4.7); ABSOLUTE MONOCYTES (AUTO) 0.5 10^3/uL (0.1-1.4); ABSOLUTE NEUT (AUTO) 4.1 10^3/uL (1.7-8.2); BASOPHILS % (AUTO) 0.4 % (0-2); EOSINOPHILS % (AUTO) 0.7 % (0-6); HEMATOCRIT 29.8 % (37.9-51.0); HEMOGLOBIN 10.1 g/dL (13.5-17.0); HGB HCT DIFFERENCE 0.5; LYMPHOCYTES % (AUTO) 11.6 % (13-45); MEAN CORPUSCULAR HEMOGLOBIN 27.8 pg (27.0-33.4); MEAN CORPUSCULAR HGB CONC 33.9 g/dL (32.0-36.0); MEAN CORPUSCULAR VOLUME 82 fl (80-97); MONOCYTES % (AUTO) 9.6 % (3-13); RED BLOOD COUNT 3.63 10^6/uL (4.35-5.55); RED CELL DISTRIBUTION WIDTH 19.8 % (11.5-14.0); SEGMENTED NEUTROPHILS % (AUTO) 77.7 % (42-78); WHITE BLOOD COUNT 5.3 10^3/uL (4.0-10.5)
[2016-06-29 04:15] LABS: ALANINE AMINOTRANSFERASE 26 U/L (21-72); ALBUMIN 2.8 g/dL (3.5-5.0); ALKALINE PHOSPHATASE 47 U/L (38-126); ANION GAP 10 (5-19); ASPARTATE AMINO TRANSFERASE 15 U/L (17-59); BILIRUBIN,TOTAL 0.9 mg/dL (0.2-1.3); BLOOD UREA NITROGEN 6 mg/dL (7-20); CALCIUM 9.3 mg/dL (8.4-10.2); CARBON DIOXIDE 27 mmol/L (22-30); CHLORIDE 101 mmol/L (98-107); GLUCOSE 83 mg/dL (75-110); POTASSIUM 3.4 mmol/L (3.6-5.0); SODIUM 137.5 mmol/L (137-145); TOTAL PROTEIN 4.8 g/dL (6.3-8.2)
[2016-06-29] MEDS: LANSOPRAZOLE 30 MG TAB.RAP.DR PO SCH (09:59)
[2016-06-29] MEDS: MESALAMINE 400 MG CAPSULE.DR PO SCH ×3 (09:59→17:51)
[2016-06-29] MEDS: FINASTERIDE 5 MG TABLET PO SCH (09:59)
[2016-06-29] MEDS: TIOTROPIUM BROMIDE DPI 5 CAP/KIT (18 MCG/CAP) IH SCH (10:00)
[2016-06-29] MEDS: ROFLUMILAST 500 MCG TABLET PO SCH (10:00)
[2016-06-29] MEDS: SERTRALINE HCL 50 MG TABLET PO SCH (10:00)
[2016-06-29] MEDS: DILTIAZEM HCL 180 MG CAPSULE.CR PO SCH (10:00)
[2016-06-29] MEDS: FLUTICASONE/SALMETEROL DISKUS 250-50 MCG/DOSE IH SCH ×2 (10:01→17:50)
[2016-06-29] MEDS: LEVOFLOXACIN 750 MG/D5W RTU 750 MG/150 ML RTUPB IV SCH (13:15)
[2016-06-29] MEDS: TAMSULOSIN HCL 0.4 MG CAP.SR.24H PO SCH (17:50)
[2016-06-29] MEDS: MONTELUKAST SODIUM 10 MG TABLET PO SCH (17:50)
[2016-06-29] MEDS: SIMVASTATIN 40 MG TABLET PO SCH (17:51)
--- NOTE | 2016-06-29 19:49 | PDOC DISCHARGE SUMMARY ---
General - Admit/Disc Date/PCP Admission Date/Primary Care Provider: 06/26/16 19:56 SIDRA IBARRA MD Discharge Date: 06/29/16 - Discharge Diagnosis (1) Acute lower gastrointestinal bleeding Is this a current diagnosis for this admission?: YesSummary: Acute lower GI bleed due to bleeding ulcer in the sigmoid colon (2) Chronic atrial fibrillation Is this a current diagnosis for this admission?: Yes (3) Chronic obstructive pulmonary disease Is this a current diagnosis for this admission?: Yes (4) Hypovolemia due to hemorrhage Is this a current diagnosis for this admission?: Yes (5) Protein-calorie undernutrition Is this a current diagnosis for this admission?: YesSummary: He has a body mass index of 17, the weight loss has been extensively evaluated outpatient, the weight loss is thought to be due to combination of multiple comorbid conditions including very severe COPD and poor intake - Additional Information Resuscitation Status: Full Code Discharge Diet: As Tolerated Discharge Activity: Activity As Tolerated Home Medications: Dabigatran Etexilate Mesylate [Pradaxa 150 mg Capsule] 150 mg PO BID 06/27/16 Diltiazem HCl [Diltiazem ER] 180 mg PO DAILY 06/27/16 Docusate Sodium [Colace 100 mg Capsule] 100 mg PO BID 06/27/16 Esomeprazole Magnesium [Nexium] 40 mg PO DAILY 06/27/16 Finasteride [Proscar 5 mg Tablet] 5 mg PO DAILY 06/27/16 Fluticasone/Salmeterol [Advair 250-50 Diskus 28 dose] 1 puff IH Q12 06/27/16 Hydrochlorothiazide [Hydrodiuril 25 mg Tablet] 25 mg PO DAILY 06/27/16 Megestrol Acetate 40 mg PO DAILY 06/27/16 Montelukast Sodium [Singulair 10 mg Tablet] 10 mg PO QPM 06/27/16 Roflumilast [Daliresp 500 mcg Tablet] 500 mg PO DAILY 06/27/16 Sertraline HCl [Zoloft 50 mg Tablet] 50 mg PO DAILY 06/27/16 Simvastatin [Zocor 40 mg Tablet] 40 mg PO QPM 06/27/16 Tamsulosin HCl [Flomax 0.4 mg Cap.sr] 2 cap PO QHS 06/27/16 Tiotropium [place] [Spiriva Handihaler 18 mcg/dose (30 Dose)] 1 cap IH DAILY 05/15 History of Present Illness History of Present Illness: BROCK CAMP is a 75 year old male, history of chronic atrial fibrillation on chronic anticoagulation,he had colonoscopy on 06/19/2016, he polyps removed from the colon He came to emergency room with rectal bleeding, when he presented he was hypotensive with hemoglobin 7, he was treated in the emergency room with normal saline and subsequently receive 2 units of packed red blood cells. He was seen by GI physician, He had Emergency Colonoscopy and was found to have ulcer in the sigmoid colon that was actively bleeding. The ulcer base was injected with epinephrine,the bleeding is presently controlled. Hospital Course Hospital Course: Patient was admitted when he presented with acute lower GI bleed, there was hypotension in the setting of lower GI bleed, he was fluid resuscitated on was transfused with a total of 4 units of packed red blood cells, he was seen by Dr. Giraldo, cleaner and polisher on he underwent emergency colonoscopy he was found to have a bleeding ulcer in the sigmoid colon. He had colonoscopy couple of days ago and polyps were removed from the sigmoid colon and it was felt that the bleeding site was from the area where the polyps were removed. Patient stabilized and was monitored in the hospital subsequently. Physical Exam Vital Signs: Temp Pulse Resp BP Pulse Ox 98.6 F 91 15 118/51 L 100 06/29/16 15:04 06/29/16 15:04 06/29/16 15:04 06/29/16 15:04 06/29/16 15:04 Intake & Output 06/28/16 06/29/16 06/30/16 06:59 06:59 06:59 Intake Total 432 663 3050 Output Total 1700 1830 375 Balance -1500 -1050 2406 Weight 66.2 kg 65.5 kg General appearance: PRESENT: thin Eye exam: PRESENT: PERRLA Respiratory exam: PRESENT: decreased breath sounds Cardiovascular exam: PRESENT: +S1, +S2 GI/Abdominal exam: PRESENT: soft Neurological exam: PRESENT: alert, CN II-XII grossly intact Results Laboratory Results: 06/29/16 03:41 06/29/16 03:41 06/29/16 06/29/16 06/29/16 00:17 03:41 03:41 WBC 5.2 5.3 RBC 3.54 L 3.63 L Hgb 10.0 L 10.1 L Hct 28.8 L 29.8 L MCV 81 82 MCH 28.3 27.8 MCHC 34.8 33.9 RDW 19.8 H 19.8 H Plt Count 122 L 127 L Seg Neutrophils % 77.0 77.7 Lymphocytes % 13.0 11.6 L Monocytes % 9.1 9.6 Eosinophils % 0.5 0.7 Basophils % 0.4 0.4 Absolute Neutrophils 4.0 4.1 Absolute Lymphocytes 0.7 0.6 Absolute Monocytes 0.5 0.5 Absolute Eosinophils 0.0 0.0 Absolute Basophils 0.0 0.0 Sodium 137.5 Potassium 3.4 L Chloride 101 Carbon Dioxide 27 Anion Gap 10 BUN 6 L Creatinine 0.70 Est GFR ( Amer) > 60 Est GFR (Non-Af Amer) > 60 Glucose 83 Calcium 9.3 Total Bilirubin 0.9 AST 15 L ALT 26 Alkaline Phosphatase 47 Ammonia Total Protein 4.8 L Albumin 2.8 L 06/29/16 03:41 WBC RBC Hgb Hct MCV MCH MCHC RDW Plt Count Seg Neutrophils % Lymphocytes % Monocytes % Eosinophils % Basophils % Absolute Neutrophils Absolute Lymphocytes Absolute Monocytes Absolute Eosinophils Absolute Basophils Sodium Potassium Chloride Carbon Dioxide Anion Gap BUN Creatinine Est GFR ( Amer) Est GFR (Non-Af Amer) Glucose Calcium Total Bilirubin AST ALT Alkaline Phosphatase Ammonia < 8.7 L Total Protein Albumin 06/27/16 06/27/16 06/27/16 00:37 00:37 07:14 Creatine Kinase 29 L 43 L Troponin I < 0.012 06/27/16 06/27/16 06/27/16 07:14 12:39 12:39 Creatine Kinase 41 L Troponin I < 0.012 < 0.012
[2016-06-30] MEDS ORDERED: SERTRALINE HCL 50 MG TABLET PO SCH (10:00)
[2016-06-30] MEDS: FINASTERIDE 5 MG TABLET PO SCH (10:08)
[2016-06-30] MEDS: DILTIAZEM HCL 180 MG CAPSULE.CR PO SCH (10:08)
[2016-06-30] MEDS: MESALAMINE 400 MG CAPSULE.DR PO SCH (10:08)
[2016-06-30] MEDS: ROFLUMILAST 500 MCG TABLET PO SCH (10:09)
[2016-06-30] MEDS: LANSOPRAZOLE 30 MG TAB.RAP.DR PO SCH (10:09)
[2016-06-30] MEDS: TIOTROPIUM BROMIDE DPI 5 CAP/KIT (18 MCG/CAP) IH SCH (10:09)
[2016-06-30] MEDS: FLUTICASONE/SALMETEROL DISKUS 250-50 MCG/DOSE IH SCH (10:09)
[2016-06-30 14:12] VITALS: BP 119/54
== END 2016-06-30 14:52 | disposition home or self-care (01) | DRG 394 ==
LOC: ER 18:20 → EH 19:56 → ICU 06-27 11:30 → 4S 06-29 05:50
PROVIDERS: ADMIT Internal Medicine; ATTEND Internal Medicine
PROC: 30233N1 Transfusion of Nonautologous Red Blood Cells into Peripheral Vein, Percutaneous Approach (ICD-10-PCS; 2016-06-26)
PROC: 0W3P8ZZ Control Bleeding in Gastrointestinal Tract, Via Natural or Artificial Opening Endoscopic (ICD-10-PCS; principal; 2016-06-27)
PROC: 30233N1 Transfusion of Nonautologous Red Blood Cells into Peripheral Vein, Percutaneous Approach (ICD-10-PCS; 2016-06-28)
DX: K63.3 Ulcer of intestine (principal); K92.2 Gastrointestinal hemorrhage, unspecified; E46 Unspecified protein-calorie malnutrition; Z68.1 Body mass index [BMI] 19.9 or less, adult; I48.2 Chronic atrial fibrillation; J44.9 Chronic obstructive pulmonary disease, unspecified; E86.1 Hypovolemia; I10 Essential (primary) hypertension; E78.00 Pure hypercholesterolemia, unspecified; D50.9 Iron deficiency anemia, unspecified; M19.90 Unspecified osteoarthritis, unspecified site; I25.10 Atherosclerotic heart disease of native coronary artery without angina pectoris; K44.9 Diaphragmatic hernia without obstruction or gangrene; Z79.899 Other long term (current) drug therapy; Z79.01 Long term (current) use of anticoagulants; Z86.010 Personal history of colon polyps; Z95.0 Presence of cardiac pacemaker; Z87.891 Personal history of nicotine dependence
CPT/HCPCS: 36415; 36430; 45381; 45382; 80048; 80053; 80061; 80076; 80307; 82140; 82150; 82550; 82553; 83036; 83605; 83690; 83735; 83880; 84100; 84439; 84443; 84484; 85025; 85027; 85610; 85730; 86850; 86900; 86901; 86920; 87040; 87077; 87186; 93005; 93010; 96360; 99291; J0171; J1610; J1956; J2250; J2310; J2550; J3010; J3490; J7030; P9016

== ENCOUNTER 2016-11-09 13:31 | Inpatient (IN) | payer MEDICARE ==
[2016-11-09 15:09] LABS: ARTERIAL BLOOD BASE EXCESS 4.3 mmol/L
[2016-11-09 15:10] LABS: HEMATOCRIT 27.7 % (37.9-51.0); HEMOGLOBIN 8.8 g/dL (13.5-17.0); HGB HCT DIFFERENCE -1.3; MEAN CORPUSCULAR HEMOGLOBIN 26.3 pg (27.0-33.4); MEAN CORPUSCULAR VOLUME 82 fl (80-97); RED BLOOD COUNT 3.36 10^6/uL (4.35-5.55); RED CELL DISTRIBUTION WIDTH 15.4 % (11.5-14.0); WHITE BLOOD COUNT 5.5 10^3/uL (4.0-10.5)
[2016-11-09 15:29] LABS: ALANINE AMINOTRANSFERASE 22 U/L (21-72); ALBUMIN 4.1 g/dL (3.5-5.0); ALKALINE PHOSPHATASE 80 U/L (38-126); ANION GAP 11 (5-19); ASPARTATE AMINO TRANSFERASE 12 U/L (17-59); BILIRUBIN,DIRECT 0.3 mg/dL (0.0-0.4); BILIRUBIN,TOTAL 0.5 mg/dL (0.2-1.3); BLOOD UREA NITROGEN 14 mg/dL (7-20); CALCIUM 10.3 mg/dL (8.4-10.2); CARBON DIOXIDE 33 mmol/L (22-30); CHLORIDE 99 mmol/L (98-107); CREATININE RESULT 0.91 mg/dL (0.52-1.25); GLUCOSE 105 mg/dL (75-110); POTASSIUM 3.4 mmol/L (3.6-5.0); SODIUM 143.2 mmol/L (137-145); TOTAL PROTEIN 7.1 g/dL (6.3-8.2)
[2016-11-09] MEDS ORDERED: ACETAMINOPHEN 325 MG TABLET PO PRN (16:21)
[2016-11-09] MEDS ORDERED: LEVALBUTEROL HCL NEB 0.63 MG/3 ML AMPUL NEB PRN (16:21)
[2016-11-09] MEDS ORDERED: ONDANSETRON HCL INJ/PF 4 MG/2 ML SDV IV PRN (16:21)
[2016-11-09] MEDS ORDERED: FINASTERIDE 5 MG TABLET PO SCH (18:00)
[2016-11-09] MEDS ORDERED: DILTIAZEM HCL 180 MG CAPSULE.CR PO SCH (18:00)
[2016-11-09] MEDS ORDERED: TIOTROPIUM BROMIDE DPI 5 CAP/KIT (18 MCG/CAP) IH SCH (18:00)
[2016-11-09] MEDS ORDERED: SERTRALINE HCL 50 MG TABLET PO SCH (18:00)
[2016-11-09] MEDS ORDERED: HYDROCHLOROTHIAZIDE 25 MG TABLET PO SCH (18:00)
[2016-11-09] MEDS ORDERED: ROFLUMILAST 500 MCG TABLET PO SCH (18:00)
[2016-11-09] MEDS ORDERED: LANSOPRAZOLE 30 MG TAB.RAP.DR PO SCH (18:00)
[2016-11-09] MEDS: DABIGATRAN ETEXILATE 150 MG CAPSULE PO SCH (18:22)
[2016-11-09] MEDS: MEGESTROL ACETATE 20 MG TABLET PO SCH (18:23)
[2016-11-09] MEDS: FLUTICASONE/SALMETEROL DISKUS 250-50 MCG/DOSE IH SCH (18:27)
--- NOTE | 2016-11-09 18:57 | RADIOLOGY REPORT (SQ) ---
EXAM DESCRIPTION: CHEST PA/LAT COMPLETED DATE/TIME: 11/09/2016 6:46 pm REASON FOR STUDY: afib w/ RVR COMPARISON: 06/05/2013. NUMBER OF VIEWS: Two view. TECHNIQUE: Frontal and lateral radiographic views of the chest acquired. LIMITATIONS: None. FINDINGS: LUNGS AND PLEURA: No opacities, masses or pneumothorax. No pleural effusion. Attenuated bl ood vessels and flattened mariama-diaphragms. MEDIASTINUM AND HILAR STRUCTURES: No masses. No contour abnormalities. HEART AND VASCULAR STRUCTURES: Heart normal in size and contour. No evidence for failure. BONES: No acute findings. HARDWARE: None in the chest. OTHER: No other significant finding. IMPRESSION: COPD. NO ACUTE RADIOGRAPHIC FINDING IN THE CHEST. TECHNICAL DOCUMENTATION: JOB ID: [id number] [employer]- All Rights Reserved
--- NOTE | 2016-11-09 20:18 | RADIOLOGY REPORT (SQ) ---
EXAM DESCRIPTION: CT CHEST WITHOUT COMPLETED DATE/TIME: 11/09/2016 7:52 pm REASON FOR STUDY: copd COMPARISON: Chest x-ray dated 11/09/2016. Chest CT dated 10/02/2013. TECHNIQUE: CT scan performed of the chest without intravenous contrast. Images reviewed with lung, soft tissue and bone windows. Reconstructed coronal and sagittal MPR images reviewed. All images st ored on PACS. All CT scanners at this facility use dose modulation, iterative reconstruction, and/or weight based d osing when appropriate to reduce radiation dose to as low as reasonably achievable (ALARA). [facility]: Dose Right [facility]: CareDose [facility]: Dose Right [facility]: Teradose 4D [facility]: [employer] RADIATION DOSE: Up-to-date CT equipment and radiation dose reduction techniques were employed. CTDIv ol: 5.3 mGy. DLP: 241 mGy-cm. mGy. LIMITATIONS: No technical limitations. FINDINGS: LUNGS AND PLEURA: Hyperinflation with marked chronic bullous emphysema. No masses, infilt rates, pneumothorax. No pleural effusions, calcifications. HILAR AND MEDIASTINAL STRUCTURES: No identified masses or abnormal nodes. No obvious aneurysm. HEART AND VASCULAR STRUCTURES: No aneurysm. No pericardial effusion. UPPER ABDOMEN: No significant findings. Limited exam. THYROID AND OTHER SOFT TISSUES: No masses. No adenopathy. BONES: No significant finding. HARDWARE: None in the chest. OTHER: No other significant findings. IMPRESSION: CHRONIC BULLOUS EMPHYSEMA. NO ACUTE FINDING ON NON-CONTRASTED CHEST CT. TECHNICAL DOCUMENTATION: JOB ID: [id number] Quality ID # [id number]: Final reports with documentation of one or more dose reduction techniques (e.g., Au tomated exposure control, adjustment of the mA and/or kV according to patient size, use of iterative reconstruction technique) 2010 [employer]- All Rights Reserved
--- NOTE | 2016-11-09 20:22 | EKG REPORT ---
SEVERITY:- ABNORMAL ECG - SINUS TACHYCARDIA MULTIFORM VENTRICULAR PREMATURE COMPLEXES ANTERIOR INFARCT, AGE INDETERMINATE BORDERLINE T ABNORMALITIES, INFERIOR LEADS : Confirmed by: David Riley MD 09-Nov-2016 20:21:41
[2016-11-09] MEDS: TAMSULOSIN HCL 0.4 MG CAP.SR.24H PO SCH (21:49)
[2016-11-09] MEDS: MONTELUKAST SODIUM 10 MG TABLET PO SCH (21:49)
[2016-11-09] MEDS: SIMVASTATIN 40 MG TABLET PO SCH (21:49)
[2016-11-10 01:53] LABS: APPEARANCE,URINE CLEAR; BILIRUBIN,URINE NEGATIVE (NEGATIVE); GLUCOSE, URINE NEGATIVE (NEGATIVE); KETONES,URINE NEGATIVE (NEGATIVE); LEUKOCYTE ESTERASE,URINE NEGATIVE (NEGATIVE); NITRITE,URINE NEGATIVE (NEGATIVE); PROTEIN,URINE NEGATIVE (NEGATIVE); URINE SPECIFIC GRAVITY 1.016; UROBILINOGEN,URINE NEGATIVE mg/dL (<2.0)
[2016-11-10] MEDS: NORMAL SALINE 1000 ML 1,000 ML IV PRN (04:28)
[2016-11-10 04:51] LABS: ABSOLUTE EOSINOPHILS # (AUTO) 0.1 10^3/uL (0.0-0.6); ABSOLUTE MONOCYTES (AUTO) 0.4 10^3/uL (0.1-1.4); ABSOLUTE NEUT (AUTO) 3.4 10^3/uL (1.7-8.2); BASOPHILS % (AUTO) 0.3 % (0-2); EOSINOPHILS % (AUTO) 1.1 % (0-6); HEMATOCRIT 21.1 % (37.9-51.0); HGB HCT DIFFERENCE -0.7; LYMPHOCYTES % (AUTO) 20.9 % (13-45); MEAN CORPUSCULAR HEMOGLOBIN 26.1 pg (27.0-33.4); MEAN CORPUSCULAR HGB CONC 32.3 g/dL (32.0-36.0); MEAN CORPUSCULAR VOLUME 81 fl (80-97); MONOCYTES % (AUTO) 8.6 % (3-13); RED CELL DISTRIBUTION WIDTH 15.6 % (11.5-14.0); SEGMENTED NEUTROPHILS % (AUTO) 69.1 % (42-78); WHITE BLOOD COUNT 4.8 10^3/uL (4.0-10.5)
[2016-11-10 05:00] LABS: ANION GAP 6 (5-19); BLOOD UREA NITROGEN 12 mg/dL (7-20); CALCIUM 9.6 mg/dL (8.4-10.2); CARBON DIOXIDE 32 mmol/L (22-30); CHLORIDE 100 mmol/L (98-107); CREATININE RESULT 0.81 mg/dL (0.52-1.25); GLUCOSE 102 mg/dL (75-110); MAGNESIUM 1.6 mg/dL (1.6-2.3); PHOSPHORUS 2.3 mg/dL (2.5-4.5); SODIUM 138.1 mmol/L (137-145)
[2016-11-10 05:03] LABS: HEMOGLOBIN 6.8 g/dL (13.5-17.0)
[2016-11-10] MEDS: DABIGATRAN ETEXILATE 150 MG CAPSULE PO SCH ×3 (05:13→21:07)
[2016-11-10] MEDS: FLUTICASONE/SALMETEROL DISKUS 250-50 MCG/DOSE IH SCH ×2 (05:14→18:53)
[2016-11-10] MEDS: POTASSIUM CHLORIDE 10 MEQ TABLET.SA PO SCH ×3 (06:18→18:50)
[2016-11-10] MEDS ORDERED: (PENDING PHARMACY ID) (Esomeprazole Mag Trihydrate [Nexium] 40 MG) PO SCH (10:00)
[2016-11-10] MEDS: DILTIAZEM HCL 180 MG CAPSULE.CR PO SCH (10:42)
[2016-11-10] MEDS: FINASTERIDE 5 MG TABLET PO SCH (10:43)
[2016-11-10] MEDS: TIOTROPIUM BROMIDE DPI 5 CAP/KIT (18 MCG/CAP) IH SCH (10:43)
[2016-11-10] MEDS: SERTRALINE HCL 50 MG TABLET PO SCH (10:43)
[2016-11-10] MEDS: LANSOPRAZOLE 30 MG TAB.RAP.DR PO SCH (10:43)
[2016-11-10] MEDS: ROFLUMILAST 500 MCG TABLET PO SCH (10:45)
--- NOTE | 2016-11-10 12:38 | PDOC H&P ---
History of Present Illness Admission Date/PCP: 11/09/16 16:21 SIDRA IBARRA MD History of Present Illness: BROCK CAMP is a 75 year old male, he came to the office with his family in the wheelchair for evaluation of progressive weight loss, complete lack of energy, low blood pressure, shortness of breath on mild exertion. He has multiple comorbid conditions including chronic obstructive lung disease, chronic respiratory failure on home oxygen, chronic atrial fibrillation on anticoagulant. In the office he was evaluated the blood pressure was low ,80 systolic ,with a pulse of 140. He was admitted directly from the office because of concern for hypotension in the setting of atrial fibrillation with rapid ventricular response. The initial hemogram showed hemoglobin 8, the body mass index is 14.5. CT chest without contrast was done showed hyperinflation with marked chronic bullous emphysema. Past Medical History Cardiac Medical History: Reports: Atrial Fibrillation - paroxysmal, Coronary Artery Disease, Hyperlipidema, Hypertension Pulmonary Medical History: Reports: Chronic Obstructive Pulmonary Disease (COPD) , Respiratory Failure, Other - Chronic respiratory failure due to end stage COPD on chronic oxygen therapy GI Medical History: Reports: Hiatal Hernia Musculoskeltal Medical History: Reports: Arthritis Hematology: Reports: Anemia - chronic Social History Information Source: Patient Smoking Status: Former Smoker Frequency of Alcohol Use: None Hx Recreational Drug Use: No Hx Prescription Drug Abuse: No Family History Family History: Reviewed & Not Pertinent Parental Family History Reviewed: Yes Children Family History Reviewed: Yes Sibling(s) Family History Reviewed.: Yes Medication/Allergy Home Medications: Dabigatran Etexilate Mesylate [Pradaxa 150 mg Capsule] 150 mg PO Q12 11/09/16 Diltiazem HCl [Diltiazem 24Hr ER] 180 mg PO DAILY 11/09/16 Esomeprazole Mag Trihydrate [Nexium] 40 mg PO DAILY 11/09/16 Finasteride [Proscar 5 mg Tablet] 5 mg PO DAILY 11/09/16 Fluticasone/Salmeterol [Advair 250-50 Diskus 28 dose] 1 puff IH Q12 11/09/16 Hydrochlorothiazide 25 mg PO DAILY 11/09/16 Megestrol Acetate 40 mg PO DAILY 11/09/16 Montelukast Sodium [Singulair 10 mg Tablet] 10 mg PO QPM 11/09/16 Roflumilast [Daliresp 500 mcg Tablet] 500 mcg PO DAILY 11/09/16 Sertraline HCl [Zoloft 50 mg Tablet] 50 mg PO DAILY 11/09/16 Simvastatin 40 mg PO QPM 11/09/16 Tamsulosin HCl [Flomax 0.4 mg Cap.sr] 0.8 mg PO QHS 11/09/16 Tiotropium [place] [Spiriva Handihaler 18 mcg/dose (30 Dose)] 1 cap IH DAILY Allergies/Adverse Reactions: No Known Allergies Allergy (Verified 06/19/16 15:21) Review of Systems Constitutional: PRESENT: fatigue, weight loss Eyes: ABSENT: visual disturbances Ears: ABSENT: hearing changes Cardiovascular: PRESENT: dyspnea on exertion Respiratory: PRESENT: dyspnea Gastrointestinal: ABSENT: abdominal pain, constipation, diarrhea, hematemesis, hematochezia, nausea, vomiting Genitourinary: ABSENT: dysuria, hematuria Musculoskeletal: ABSENT: joint swelling Integumentary: ABSENT: rash, wounds Neurological: ABSENT: abnormal gait, abnormal speech, confusion, dizziness, focal weakness, syncope Psychiatric: ABSENT: anxiety, depression, homidical ideation, suicidal ideation Endocrine: ABSENT: cold intolerance, heat intolerance, menstrual abnormalities, polydipsia, polyuria Hematologic/Lymphatic: ABSENT: easy bleeding, easy bruising, lymphadenopathy Physical Exam Vital Signs: Temp Pulse Resp BP Pulse Ox 98.6 F 101 H 18 106/48 L 93 11/10/16 11:24 11/10/16 11:24 11/10/16 11:24 11/10/16 11:24 11/10/16 11:24 Intake & Output 11/09/16 11/10/16 11/11/16 06:59 06:59 06:59 Intake Total 2659 0 Output Total 375 Balance 2284 0 Weight 52.5 kg General appearance: PRESENT: cooperative, thin Head exam: PRESENT: atraumatic, normocephalic Eye exam: PRESENT: conjunctiva pale Mouth exam: PRESENT: dry mucosa Respiratory exam: PRESENT: decreased breath sounds Cardiovascular exam: PRESENT: irregular rhythm, RRR, +S1, +S2, tachycardia Vascular exam: PRESENT: normal capillary refill GI/Abdominal exam: PRESENT: soft Rectal exam: PRESENT: deferred Neurological exam: PRESENT: alert, CN II-XII grossly intact Psychiatric exam: PRESENT: appropriate affect Skin exam: PRESENT: dry, intact, warm Results Laboratory Results: 07/15/17 03:54 11/10/16 03:54 11/09/16 11/09/16 11/09/16 14:45 15:00 15:00 WBC 5.5 RBC 3.36 L Hgb 8.8 L Hct 27.7 L MCV 82 MCH 26.3 L MCHC 32.0 RDW 15.4 H Plt Count 352 Seg Neutrophils % Lymphocytes % Monocytes % Eosinophils % Basophils % Absolute Neutrophils Absolute Lymphocytes Absolute Monocytes Absolute Eosinophils Absolute Basophils Carbonic Acid 1.55 H HCO3/H2CO3 Ratio 19:1 ABG pH 7.38 ABG pCO2 51.5 H ABG pO2 160.0 H ABG HCO3 30.1 H ABG O2 Saturation 99.0 H ABG Base Excess 4.3 FiO2 3.5 LPM Sodium 143.2 Potassium 3.4 L Chloride 99 Carbon Dioxide 33 H Anion Gap 11 BUN 14 Creatinine 0.91 Est GFR ( Amer) > 60 Est GFR (Non-Af Amer) > 60 Glucose 105 Calcium 10.3 H Phosphorus Magnesium Total Bilirubin 0.5 AST 12 L ALT 22 Alkaline Phosphatase 80 Total Protein 7.1 Albumin 4.1 Urine Color Urine Appearance Urine pH Ur Specific [place] Urine Protein Urine Glucose (UA) Urine Ketones Urine Blood Urine Nitrite Ur Leukocyte Esterase Urine WBC (Auto) Urine RBC (Auto) Blood Type Antibody Screen 11/10/16 11/10/16 11/10/16 01:29 03:54 03:54 WBC 4.8 RBC 2.60 L Hgb 6.8 L Hct 21.1 L MCV 81 MCH 26.1 L MCHC 32.3 RDW 15.6 H Plt Count 248 Seg Neutrophils % 69.1 Lymphocytes % 20.9 Monocytes % 8.6 Eosinophils % 1.1 Basophils % 0.3 Absolute Neutrophils 3.4 Absolute Lymphocytes 1.0 Absolute Monocytes 0.4 Absolute Eosinophils 0.1 Absolute Basophils 0.0 Carbonic Acid HCO3/H2CO3 Ratio ABG pH ABG pCO2 ABG pO2 ABG HCO3 ABG O2 Saturation ABG Base Excess FiO2 Sodium 138.1 Potassium 3.0 L* Chloride 100 Carbon Dioxide 32 H Anion Gap 6 BUN 12 Creatinine 0.81 Est GFR ( Amer) > 60 Est GFR (Non-Af Amer) > 60 Glucose 102 Calcium 9.6 Phosphorus 2.3 L Magnesium 1.6 Total Bilirubin AST ALT Alkaline Phosphatase Total Protein Albumin Urine Color YELLOW Urine Appearance CLEAR Urine pH 5.0 Ur Specific [place] 1.016 Urine Protein NEGATIVE Urine Glucose (UA) NEGATIVE Urine Ketones NEGATIVE Urine Blood SMALL H Urine Nitrite NEGATIVE Ur Leukocyte Esterase NEGATIVE Urine WBC (Auto) 1 Urine RBC (Auto) 1 Blood Type Antibody Screen 11/10/16 06:09 WBC RBC Hgb Hct MCV MCH MCHC RDW Plt Count Seg Neutrophils % Lymphocytes % Monocytes % Eosinophils % Basophils % Absolute Neutrophils Absolute Lymphocytes Absolute Monocytes Absolute Eosinophils Absolute Basophils Carbonic Acid HCO3/H2CO3 Ratio ABG pH ABG pCO2 ABG pO2 ABG HCO3 ABG O2 Saturation ABG Base Excess FiO2 Sodium Potassium Chloride Carbon Dioxide Anion Gap BUN Creatinine Est GFR ( Amer) Est GFR (Non-Af Amer) Glucose Calcium Phosphorus Magnesium Total Bilirubin AST ALT Alkaline Phosphatase Total Protein Albumin Urine Color Urine Appearance Urine pH Ur Specific [place] Urine Protein Urine Glucose (UA) Urine Ketones Urine Blood Urine Nitrite Ur Leukocyte Esterase Urine WBC (Auto) Urine RBC (Auto) Blood Type O POSITIVE Antibody Screen NEGATIVE Impressions: Chest CT 11/09/16 00:00 IMPRESSION: CHRONIC BULLOUS EMPHYSEMA. NO ACUTE FINDING ON NON-CONTRASTED CHEST CT. Chest X-Ray 11/09/16 00:00 IMPRESSION: COPD. NO ACUTE RADIOGRAPHIC FINDING IN THE CHEST. Assessment & Plan - Diagnosis (1) Hypotension Qualifiers: Hypotension type: unspecified hypotension type Qualified Code(s): I95.9 - Hypotension, unspecified Is this a current diagnosis for this admission?: YesPlan: The blood pressure was low in this setting of Atrial fibrillation with rapid ventricular response, the blood pressure recorded in the hospital is normal he will be slowly hydrated with IV fluid (2) Atrial fibrillation with rapid ventricular response Is this a current diagnosis for this admission?: Yes (3) Undernutrition Is this a current diagnosis for this admission?: YesPlan: The body mass index is 14.5 patient stated that he has good appetite despite adequate intake he continues to lose weight, he has progressive weight loss, he was extensively evaluated outpatient for weight loss, he had a CT scan of the chest, abdomen and pelvis and liver are negative he also underwent colonoscopy and EGD on it was negative there was no metabolic explanation for the weight loss (4) Chronic respiratory failure Qualifiers: Respiratory failure complication: hypercapnia Qualified Code(s): J96.12 - Chronic respiratory failure with hypercapnia Is this a current diagnosis for this admission?: YesPlan: He has chronic respiratory failure from end-stage COPD, he is on home oxygen. (5) End stage chronic obstructive pulmonary disease Is this a current diagnosis for this admission?: Yes (6) Anemia Qualifiers: Anemia type: unspecified type Qualified Code(s): D64.9 - Anemia, unspecified Is this a current diagnosis for this admission?: YesPlan: He has anemia most likely from nutritional deficiency state he may need blood transfusion
--- NOTE | 2016-11-10 15:15 | PDOC PROGRESS REPORT ---
Subjective Progress Note for:: 11/10/16 Subjective:: Patient was admitted yesterday, the hemoglobin from today's lab work is 6, he would need blood transfusion. Physical Exam Vital Signs: Temp Pulse Resp BP Pulse Ox 98.2 F 115 H 18 104/49 L 100 11/10/16 14:00 11/10/16 14:00 11/10/16 12:45 11/10/16 14:00 11/10/16 13:10 Intake & Output 11/09/16 11/10/16 11/11/16 06:59 06:59 06:59 Intake Total 2659 1160 Output Total 375 200 Balance 2284 960 Weight 52.5 kg General appearance: PRESENT: no acute distress Eye exam: PRESENT: PERRLA Neck exam: PRESENT: full ROM Respiratory exam: PRESENT: decreased breath sounds Cardiovascular exam: PRESENT: +S1, +S2 GI/Abdominal exam: PRESENT: soft Neurological exam: PRESENT: alert, CN II-XII grossly intact Results Laboratory Results: 11/10/16 03:54 11/10/16 03:54 11/09/16 11/09/16 11/10/16 15:00 15:00 01:29 WBC 5.5 RBC 3.36 L Hgb 8.8 L Hct 27.7 L MCV 82 MCH 26.3 L MCHC 32.0 RDW 15.4 H Plt Count 352 Seg Neutrophils % Lymphocytes % Monocytes % Eosinophils % Basophils % Absolute Neutrophils Absolute Lymphocytes Absolute Monocytes Absolute Eosinophils Absolute Basophils Sodium 143.2 Potassium 3.4 L Chloride 99 Carbon Dioxide 33 H Anion Gap 11 BUN 14 Creatinine 0.91 Est GFR ( Amer) > 60 Est GFR (Non-Af Amer) > 60 Glucose 105 Calcium 10.3 H Phosphorus Magnesium Total Bilirubin 0.5 AST 12 L ALT 22 Alkaline Phosphatase 80 Total Protein 7.1 Albumin 4.1 Urine Color YELLOW Urine Appearance CLEAR Urine pH 5.0 Ur Specific [place] 1.016 Urine Protein NEGATIVE Urine Glucose (UA) NEGATIVE Urine Ketones NEGATIVE Urine Blood SMALL H Urine Nitrite NEGATIVE Ur Leukocyte Esterase NEGATIVE Urine WBC (Auto) 1 Urine RBC (Auto) 1 Blood Type Antibody Screen 11/10/16 11/10/16 11/10/16 03:54 03:54 06:09 WBC 4.8 RBC 2.60 L Hgb 6.8 L Hct 21.1 L MCV 81 MCH 26.1 L MCHC 32.3 RDW 15.6 H Plt Count 248 Seg Neutrophils % 69.1 Lymphocytes % 20.9 Monocytes % 8.6 Eosinophils % 1.1 Basophils % 0.3 Absolute Neutrophils 3.4 Absolute Lymphocytes 1.0 Absolute Monocytes 0.4 Absolute Eosinophils 0.1 Absolute Basophils 0.0 Sodium 138.1 Potassium 3.0 L* Chloride 100 Carbon Dioxide 32 H Anion Gap 6 BUN 12 Creatinine 0.81 Est GFR ( Amer) > 60 Est GFR (Non-Af Amer) > 60 Glucose 102 Calcium 9.6 Phosphorus 2.3 L Magnesium 1.6 Total Bilirubin AST ALT Alkaline Phosphatase Total Protein Albumin Urine Color Urine Appearance Urine pH Ur Specific [place] Urine Protein Urine Glucose (UA) Urine Ketones Urine Blood Urine Nitrite Ur Leukocyte Esterase Urine WBC (Auto) Urine RBC (Auto) Blood Type O POSITIVE Antibody Screen NEGATIVE Impressions: Chest CT 11/09/16 00:00 IMPRESSION: CHRONIC BULLOUS EMPHYSEMA. NO ACUTE FINDING ON NON-CONTRASTED CHEST CT. Chest X-Ray 11/09/16 00:00 IMPRESSION: COPD. NO ACUTE RADIOGRAPHIC FINDING IN THE CHEST. Assessment & Plan - Diagnosis (1) Hypotension Qualifiers: Hypotension type: unspecified hypotension type Qualified Code(s): I95.9 - Hypotension, unspecified Is this a current diagnosis for this admission?: YesPlan: The blood pressure is improved with hydration (2) Atrial fibrillation with rapid ventricular response Is this a current diagnosis for this admission?: YesPlan: Presently rate controlled on medication, continue present medication and also anticoagulant with Pradaxa (3) Undernutrition Is this a current diagnosis for this admission?: Yes (4) Chronic respiratory failure Qualifiers: Respiratory failure complication: hypercapnia Qualified Code(s): J96.12 - Chronic respiratory failure with hypercapnia Is this a current diagnosis for this admission?: Yes (5) End stage chronic obstructive pulmonary disease Is this a current diagnosis for this admission?: Yes (6) Anemia Qualifiers: Anemia type: unspecified type Qualified Code(s): D64.9 - Anemia, unspecified Is this a current diagnosis for this admission?: YesPlan: He will be transfused with 2 units of packed red blood cells
[2016-11-10] MEDS: HYDROCHLOROTHIAZIDE 25 MG TABLET PO SCH (18:55)
[2016-11-10 20:49] LABS: HEMATOCRIT 27.6 % (37.9-51.0); HGB HCT DIFFERENCE -0.9; MEAN CORPUSCULAR HEMOGLOBIN 27.4 pg (27.0-33.4); MEAN CORPUSCULAR HGB CONC 32.4 g/dL (32.0-36.0); RED BLOOD COUNT 3.26 10^6/uL (4.35-5.55); RED CELL DISTRIBUTION WIDTH 15.2 % (11.5-14.0); WHITE BLOOD COUNT 6.6 10^3/uL (4.0-10.5)
[2016-11-10 20:54] LABS: HEMOGLOBIN 8.9 g/dL (13.5-17.0); MEAN CORPUSCULAR VOLUME 85 fl (80-97)
[2016-11-10] MEDS: MONTELUKAST SODIUM 10 MG TABLET PO SCH (21:07)
[2016-11-10] MEDS: SIMVASTATIN 40 MG TABLET PO SCH (21:07)
[2016-11-10] MEDS: TAMSULOSIN HCL 0.4 MG CAP.SR.24H PO SCH (21:07)
[2016-11-11] MEDS: NORMAL SALINE 1000 ML 1,000 ML IV PRN (02:43)
[2016-11-11] MEDS: FLUTICASONE/SALMETEROL DISKUS 250-50 MCG/DOSE IH SCH ×2 (05:17→17:22)
[2016-11-11 05:18] LABS: ABSOLUTE EOSINOPHILS # (AUTO) 0.1 10^3/uL (0.0-0.6); ABSOLUTE LYMPHOCYTES (AUTO) 0.9 10^3/uL (0.5-4.7); ABSOLUTE MONOCYTES (AUTO) 0.5 10^3/uL (0.1-1.4); ABSOLUTE NEUT (AUTO) 5.3 10^3/uL (1.7-8.2); BASOPHILS % (AUTO) 0.3 % (0-2); EOSINOPHILS % (AUTO) 1.1 % (0-6); HEMOGLOBIN 8.2 g/dL (13.5-17.0); HGB HCT DIFFERENCE -0.4; LYMPHOCYTES % (AUTO) 13.7 % (13-45); MEAN CORPUSCULAR HEMOGLOBIN 27.3 pg (27.0-33.4); MEAN CORPUSCULAR HGB CONC 32.8 g/dL (32.0-36.0); MEAN CORPUSCULAR VOLUME 83 fl (80-97); MONOCYTES % (AUTO) 7.6 % (3-13); RED CELL DISTRIBUTION WIDTH 15.3 % (11.5-14.0); SEGMENTED NEUTROPHILS % (AUTO) 77.3 % (42-78); WHITE BLOOD COUNT 6.9 10^3/uL (4.0-10.5)
[2016-11-11 05:25] LABS: BLOOD UREA NITROGEN 12 mg/dL (7-20); CALCIUM 9.3 mg/dL (8.4-10.2); CREATININE RESULT 0.88 mg/dL (0.52-1.25); GLUCOSE 92 mg/dL (75-110); POTASSIUM 3.9 mmol/L (3.6-5.0)
[2016-11-11 05:37] LABS: ANION GAP 7 (5-19); CARBON DIOXIDE 28 mmol/L (22-30); CHLORIDE 104 mmol/L (98-107); SODIUM 138.5 mmol/L (137-145)
[2016-11-11] MEDS: DABIGATRAN ETEXILATE 150 MG CAPSULE PO SCH ×2 (09:10→22:01)
[2016-11-11] MEDS: LANSOPRAZOLE 30 MG TAB.RAP.DR PO SCH (09:10)
[2016-11-11] MEDS: DILTIAZEM HCL 180 MG CAPSULE.CR PO SCH (09:11)
[2016-11-11] MEDS: SERTRALINE HCL 50 MG TABLET PO SCH (09:11)
[2016-11-11] MEDS: HYDROCHLOROTHIAZIDE 25 MG TABLET PO SCH (09:11)
[2016-11-11] MEDS: FINASTERIDE 5 MG TABLET PO SCH (09:12)
[2016-11-11] MEDS: ROFLUMILAST 500 MCG TABLET PO SCH (09:13)
[2016-11-11] MEDS: TIOTROPIUM BROMIDE DPI 5 CAP/KIT (18 MCG/CAP) IH SCH (09:13)
--- NOTE | 2016-11-11 14:05 | PDOC PROGRESS REPORT ---
Subjective Progress Note for:: 11/11/16 Subjective:: Patient was seen by the bedside he was transfused with 2 units of packed red blood cells posttransfusion hemoglobin was 8.9 but it dropped to 8.2 from today' s lab work Physical Exam Vital Signs: Temp Pulse Resp BP Pulse Ox 98.4 F 91 16 99/44 L 99 11/11/16 07:51 11/11/16 07:51 11/11/16 07:51 11/11/16 07:51 11/11/16 07:51 Intake & Output 11/10/16 11/11/16 11/12/16 06:59 06:59 06:59 Intake Total 2659 4495 Output Total 375 950 Balance 2284 3545 Weight 52.5 kg 123.2 kg General appearance: PRESENT: no acute distress Eye exam: PRESENT: PERRLA Respiratory exam: PRESENT: decreased breath sounds Cardiovascular exam: PRESENT: +S1, +S2 GI/Abdominal exam: PRESENT: soft Neurological exam: PRESENT: alert, CN II-XII grossly intact Results Laboratory Results: 11/11/16 04:02 11/11/16 04:02 11/10/16 11/10/16 11/11/16 06:09 20:38 04:02 WBC 6.6 6.9 RBC 3.26 L 3.00 L Hgb 8.9 L D 8.2 L Hct 27.6 L 25.0 L MCV 85 D 83 MCH 27.4 27.3 MCHC 32.4 32.8 RDW 15.2 H 15.3 H Plt Count 225 216 Seg Neutrophils % 77.3 Lymphocytes % 13.7 Monocytes % 7.6 Eosinophils % 1.1 Basophils % 0.3 Absolute Neutrophils 5.3 Absolute Lymphocytes 0.9 Absolute Monocytes 0.5 Absolute Eosinophils 0.1 Absolute Basophils 0.0 Sodium Potassium Chloride Carbon Dioxide Anion Gap BUN Creatinine Est GFR ( Amer) Est GFR (Non-Af Amer) Glucose Calcium Blood Type O POSITIVE Antibody Screen NEGATIVE 11/11/16 04:02 WBC RBC Hgb Hct MCV MCH MCHC RDW Plt Count Seg Neutrophils % Lymphocytes % Monocytes % Eosinophils % Basophils % Absolute Neutrophils Absolute Lymphocytes Absolute Monocytes Absolute Eosinophils Absolute Basophils Sodium 138.5 Potassium 3.9 Chloride 104 Carbon Dioxide 28 Anion Gap 7 BUN 12 Creatinine 0.88 Est GFR ( Amer) > 60 Est GFR (Non-Af Amer) > 60 Glucose 92 Calcium 9.3 Blood Type Antibody Screen Impressions: Chest CT 11/09/16 00:00 IMPRESSION: CHRONIC BULLOUS EMPHYSEMA. NO ACUTE FINDING ON NON-CONTRASTED CHEST CT. Chest X-Ray 11/09/16 00:00 IMPRESSION: COPD. NO ACUTE RADIOGRAPHIC FINDING IN THE CHEST. Assessment & Plan - Diagnosis (1) Hypotension Qualifiers: Hypotension type: unspecified hypotension type Qualified Code(s): I95.9 - Hypotension, unspecified Is this a current diagnosis for this admission?: Yes (2) Atrial fibrillation with rapid ventricular response Is this a current diagnosis for this admission?: Yes (3) Undernutrition Is this a current diagnosis for this admission?: Yes (4) Chronic respiratory failure Qualifiers: Respiratory failure complication: hypercapnia Qualified Code(s): J96.12 - Chronic respiratory failure with hypercapnia Is this a current diagnosis for this admission?: Yes (5) End stage chronic obstructive pulmonary disease Is this a current diagnosis for this admission?: Yes (6) Anemia Qualifiers: Anemia type: unspecified type Qualified Code(s): D64.9 - Anemia, unspecified Is this a current diagnosis for this admission?: Yes - Plan Summary Plan Summary: He will continue present treatment
[2016-11-11] MEDS: MEGESTROL ACETATE 20 MG TABLET PO SCH (15:10)
[2016-11-11] MEDS: TAMSULOSIN HCL 0.4 MG CAP.SR.24H PO SCH (22:00)
[2016-11-11] MEDS: SIMVASTATIN 40 MG TABLET PO SCH (22:01)
[2016-11-11] MEDS: MONTELUKAST SODIUM 10 MG TABLET PO SCH (22:01)
[2016-11-12 05:19] LABS: ABSOLUTE EOSINOPHILS # (AUTO) 0.1 10^3/uL (0.0-0.6); ABSOLUTE LYMPHOCYTES (AUTO) 0.9 10^3/uL (0.5-4.7); ABSOLUTE MONOCYTES (AUTO) 0.4 10^3/uL (0.1-1.4); BASOPHILS % (AUTO) 0.3 % (0-2); EOSINOPHILS % (AUTO) 1.8 % (0-6); HEMATOCRIT 26.9 % (37.9-51.0); HEMOGLOBIN 8.7 g/dL (13.5-17.0); HGB HCT DIFFERENCE -0.8; LYMPHOCYTES % (AUTO) 16.8 % (13-45); MEAN CORPUSCULAR HEMOGLOBIN 27.1 pg (27.0-33.4); MEAN CORPUSCULAR HGB CONC 32.2 g/dL (32.0-36.0); MEAN CORPUSCULAR VOLUME 84 fl (80-97); MONOCYTES % (AUTO) 7.5 % (3-13); RED CELL DISTRIBUTION WIDTH 15.6 % (11.5-14.0); SEGMENTED NEUTROPHILS % (AUTO) 73.6 % (42-78); WHITE BLOOD COUNT 5.4 10^3/uL (4.0-10.5)
[2016-11-12 05:41] LABS: ANION GAP 5 (5-19); BLOOD UREA NITROGEN 12 mg/dL (7-20); CALCIUM 9.3 mg/dL (8.4-10.2); CARBON DIOXIDE 30 mmol/L (22-30); CHLORIDE 103 mmol/L (98-107); CREATININE RESULT 0.71 mg/dL (0.52-1.25); GLUCOSE 83 mg/dL (75-110); POTASSIUM 3.5 mmol/L (3.6-5.0); SODIUM 138.2 mmol/L (137-145)
[2016-11-12] MEDS: NORMAL SALINE 1000 ML 1,000 ML IV PRN ×2 (06:05→17:33)
[2016-11-12] MEDS: FLUTICASONE/SALMETEROL DISKUS 250-50 MCG/DOSE IH SCH ×2 (06:05→17:33)
[2016-11-12] MEDS: SERTRALINE HCL 50 MG TABLET PO SCH (09:10)
[2016-11-12] MEDS: HYDROCHLOROTHIAZIDE 25 MG TABLET PO SCH (09:10)
[2016-11-12] MEDS: DILTIAZEM HCL 180 MG CAPSULE.CR PO SCH (09:10)
[2016-11-12] MEDS: DABIGATRAN ETEXILATE 150 MG CAPSULE PO SCH ×2 (09:11→21:35)
[2016-11-12] MEDS: LANSOPRAZOLE 30 MG TAB.RAP.DR PO SCH (09:11)
[2016-11-12] MEDS: FINASTERIDE 5 MG TABLET PO SCH (09:11)
[2016-11-12] MEDS: ROFLUMILAST 500 MCG TABLET PO SCH (09:14)
[2016-11-12] MEDS: MEGESTROL ACETATE 20 MG TABLET PO SCH (09:15)
[2016-11-12] MEDS: TIOTROPIUM BROMIDE DPI 5 CAP/KIT (18 MCG/CAP) IH SCH (10:11)
--- NOTE | 2016-11-12 18:47 | PDOC PROGRESS REPORT ---
Subjective Progress Note for:: 11/12/16 Subjective:: Patient was seen by discharge planning, he stated that he is not particularly interested in going to a facility at this stage of his life he will like to return back home. Patient family/daughter stated that patient needed to stay in a halfway but patient disagrees, since he is alert and oriented and he can make decision for himself we have to follow his wishes at this point. The blood culture result was positive for gram positive cocci in clusters in 1 bottle this is most likely contamination ,it is probably staph epi, patient is not showing signs of sepsis. Physical Exam Vital Signs: Temp Pulse Resp BP Pulse Ox 98.1 F 102 H 32 H 126/59 H 100 11/12/16 12:00 11/12/16 14:00 11/12/16 12:00 11/12/16 12:00 11/12/16 12:00 Intake & Output 11/11/16 11/12/16 11/13/16 06:59 06:59 06:59 Intake Total 4495 3225 1418 Output Total 950 1950 600 Balance 3545 1275 818 Weight 123.2 kg 56.1 kg General appearance: PRESENT: no acute distress Eye exam: PRESENT: PERRLA Respiratory exam: PRESENT: decreased breath sounds Cardiovascular exam: PRESENT: +S1, +S2 Neurological exam: PRESENT: alert, CN II-XII grossly intact Results Laboratory Results: 11/12/16 04:09 11/12/16 04:09 11/12/16 11/12/16 04:09 04:09 WBC 5.4 RBC 3.20 L Hgb 8.7 L Hct 26.9 L MCV 84 MCH 27.1 MCHC 32.2 RDW 15.6 H Plt Count 209 Seg Neutrophils % 73.6 Lymphocytes % 16.8 Monocytes % 7.5 Eosinophils % 1.8 Basophils % 0.3 Absolute Neutrophils 4.0 Absolute Lymphocytes 0.9 Absolute Monocytes 0.4 Absolute Eosinophils 0.1 Absolute Basophils 0.0 Sodium 138.2 Potassium 3.5 L Chloride 103 Carbon Dioxide 30 Anion Gap 5 BUN 12 Creatinine 0.71 Est GFR ( Amer) > 60 Est GFR (Non-Af Amer) > 60 Glucose 83 Calcium 9.3 Impressions: Chest CT 11/09/16 00:00 IMPRESSION: CHRONIC BULLOUS EMPHYSEMA. NO ACUTE FINDING ON NON-CONTRASTED CHEST CT. Chest X-Ray 11/09/16 00:00 IMPRESSION: COPD. NO ACUTE RADIOGRAPHIC FINDING IN THE CHEST. Assessment & Plan - Diagnosis (1) Hypotension Qualifiers: Hypotension type: unspecified hypotension type Qualified Code(s): I95.9 - Hypotension, unspecified Is this a current diagnosis for this admission?: Yes (2) Atrial fibrillation with rapid ventricular response Is this a current diagnosis for this admission?: Yes (3) Undernutrition Is this a current diagnosis for this admission?: Yes (4) Chronic respiratory failure Qualifiers: Respiratory failure complication: hypercapnia Qualified Code(s): J96.12 - Chronic respiratory failure with hypercapnia Is this a current diagnosis for this admission?: Yes (5) End stage chronic obstructive pulmonary disease Is this a current diagnosis for this admission?: Yes (6) Anemia Qualifiers: Anemia type: unspecified type Qualified Code(s): D64.9 - Anemia, unspecified Is this a current diagnosis for this admission?: Yes (7) Hypokalemia Is this a current diagnosis for this admission?: YesPlan: correct K
[2016-11-12] MEDS ORDERED: POTASSIUM CHLORIDE 20 MEQ/15 ML UDCUP PO ONE (20:00)
[2016-11-12] MEDS: TAMSULOSIN HCL 0.4 MG CAP.SR.24H PO SCH (21:35)
[2016-11-12] MEDS: MONTELUKAST SODIUM 10 MG TABLET PO SCH (21:35)
[2016-11-12] MEDS: SIMVASTATIN 40 MG TABLET PO SCH (21:35)
[2016-11-13] MEDS: FLUTICASONE/SALMETEROL DISKUS 250-50 MCG/DOSE IH SCH ×2 (05:10→18:06)
[2016-11-13] MEDS: NORMAL SALINE 1000 ML 1,000 ML IV PRN ×2 (05:11→18:07)
[2016-11-13] MEDS: FINASTERIDE 5 MG TABLET PO SCH (09:21)
[2016-11-13] MEDS: DILTIAZEM HCL 180 MG CAPSULE.CR PO SCH (09:21)
[2016-11-13] MEDS: DABIGATRAN ETEXILATE 150 MG CAPSULE PO SCH ×2 (09:22→21:19)
[2016-11-13] MEDS: LANSOPRAZOLE 30 MG TAB.RAP.DR PO SCH (09:22)
[2016-11-13] MEDS: MEGESTROL ACETATE 20 MG TABLET PO SCH (09:23)
[2016-11-13] MEDS: ROFLUMILAST 500 MCG TABLET PO SCH (09:24)
[2016-11-13] MEDS: TIOTROPIUM BROMIDE DPI 5 CAP/KIT (18 MCG/CAP) IH SCH (09:24)
[2016-11-13] MEDS: POTASSIUM CHLORIDE 20 MEQ/15 ML UDCUP PO SCH (09:26)
[2016-11-13] MEDS: HYDROCHLOROTHIAZIDE 25 MG TABLET PO SCH (09:26)
[2016-11-13] MEDS: SERTRALINE HCL 50 MG TABLET PO SCH (09:26)
--- NOTE | 2016-11-13 19:53 | EKG REPORT ---
SEVERITY:- ABNORMAL ECG - SINUS RHYTHM ANTERIOR INFARCT, AGE INDETERMINATE : Confirmed by: Matilda Gomez 13-Nov-2016 19:51:56
--- NOTE | 2016-11-13 19:57 | PDOC PROGRESS REPORT ---
Subjective Progress Note for:: 11/13/16 Subjective:: Patient was seen by the bedside, I discussed with him if he be interested in going to [facility]. Physical Exam Vital Signs: Temp Pulse Resp BP Pulse Ox 99.8 F 93 18 122/64 100 11/13/16 16:34 11/13/16 19:00 11/13/16 16:34 11/13/16 16:34 11/13/16 16:34 Intake & Output 11/12/16 11/13/16 11/14/16 06:59 06:59 06:59 Intake Total 3225 2960 3100 Output Total 1950 1500 1800 Balance 1275 1460 1300 Weight 56.1 kg 57.2 kg General appearance: PRESENT: no acute distress Eye exam: PRESENT: PERRLA Respiratory exam: PRESENT: decreased breath sounds Cardiovascular exam: PRESENT: +S1, +S2 GI/Abdominal exam: PRESENT: soft Neurological exam: PRESENT: alert Results Laboratory Results: 11/12/16 04:09 11/12/16 04:09 11/09/16 15:00 Blood Blood Culture - Final Staphylococcus Hominis Impressions: Chest CT 11/09/16 00:00 IMPRESSION: CHRONIC BULLOUS EMPHYSEMA. NO ACUTE FINDING ON NON-CONTRASTED CHEST CT. Chest X-Ray 11/09/16 00:00 IMPRESSION: COPD. NO ACUTE RADIOGRAPHIC FINDING IN THE CHEST. Assessment & Plan - Diagnosis (1) Hypotension Qualifiers: Hypotension type: unspecified hypotension type Qualified Code(s): I95.9 - Hypotension, unspecified Is this a current diagnosis for this admission?: Yes (2) Atrial fibrillation with rapid ventricular response Is this a current diagnosis for this admission?: Yes (3) Undernutrition Is this a current diagnosis for this admission?: Yes (4) Chronic respiratory failure Qualifiers: Respiratory failure complication: hypercapnia Qualified Code(s): J96.12 - Chronic respiratory failure with hypercapnia Is this a current diagnosis for this admission?: Yes (5) End stage chronic obstructive pulmonary disease Is this a current diagnosis for this admission?: Yes (6) Anemia Qualifiers: Anemia type: unspecified type Qualified Code(s): D64.9 - Anemia, unspecified Is this a current diagnosis for this admission?: Yes (7) Hypokalemia Is this a current diagnosis for this admission?: Yes
[2016-11-13 20:50] LABS: ABSOLUTE EOSINOPHILS # (AUTO) 0.1 10^3/uL (0.0-0.6); ABSOLUTE MONOCYTES (AUTO) 0.4 10^3/uL (0.1-1.4); ABSOLUTE NEUT (AUTO) 4.2 10^3/uL (1.7-8.2); BASOPHILS % (AUTO) 0.3 % (0-2); EOSINOPHILS % (AUTO) 1.9 % (0-6); HEMATOCRIT 27.8 % (37.9-51.0); HEMOGLOBIN 8.7 g/dL (13.5-17.0); HGB HCT DIFFERENCE -1.7; LYMPHOCYTES % (AUTO) 17.9 % (13-45); MEAN CORPUSCULAR HGB CONC 31.4 g/dL (32.0-36.0); MEAN CORPUSCULAR VOLUME 86 fl (80-97); MONOCYTES % (AUTO) 6.3 % (3-13); RED BLOOD COUNT 3.24 10^6/uL (4.35-5.55); RED CELL DISTRIBUTION WIDTH 16.7 % (11.5-14.0); SEGMENTED NEUTROPHILS % (AUTO) 73.6 % (42-78); WHITE BLOOD COUNT 5.6 10^3/uL (4.0-10.5)
[2016-11-13 21:10] LABS: ALANINE AMINOTRANSFERASE 25 U/L (21-72); ALBUMIN 2.7 g/dL (3.5-5.0); ALKALINE PHOSPHATASE 55 U/L (38-126); ASPARTATE AMINO TRANSFERASE 15 U/L (17-59); BILIRUBIN,DIRECT 0.3 mg/dL (0.0-0.4); BILIRUBIN,TOTAL 0.4 mg/dL (0.2-1.3); BLOOD UREA NITROGEN 12 mg/dL (7-20); CALCIUM 9.3 mg/dL (8.4-10.2); CREATININE RESULT 1.06 mg/dL (0.52-1.25); GLUCOSE 95 mg/dL (75-110); TOTAL PROTEIN 5.1 g/dL (6.3-8.2)
[2016-11-13 21:17] LABS: ANION GAP 5 (5-19); CARBON DIOXIDE 34 mmol/L (22-30); CHLORIDE 101 mmol/L (98-107); POTASSIUM 4.3 mmol/L (3.6-5.0); SODIUM 139.6 mmol/L (137-145)
[2016-11-13] MEDS: SIMVASTATIN 40 MG TABLET PO SCH (21:19)
[2016-11-13] MEDS: TAMSULOSIN HCL 0.4 MG CAP.SR.24H PO SCH (21:19)
[2016-11-13] MEDS: MONTELUKAST SODIUM 10 MG TABLET PO SCH (21:19)
[2016-11-14] MEDS: FLUTICASONE/SALMETEROL DISKUS 250-50 MCG/DOSE IH SCH ×2 (05:08→17:36)
[2016-11-14] MEDS: NORMAL SALINE 1000 ML 1,000 ML IV PRN (05:09)
[2016-11-14 05:14] LABS: ABSOLUTE EOSINOPHILS # (AUTO) 0.1 10^3/uL (0.0-0.6); ABSOLUTE LYMPHOCYTES (AUTO) 0.9 10^3/uL (0.5-4.7); ABSOLUTE MONOCYTES (AUTO) 0.3 10^3/uL (0.1-1.4); ABSOLUTE NEUT (AUTO) 3.3 10^3/uL (1.7-8.2); BASOPHILS % (AUTO) 0.3 % (0-2); EOSINOPHILS % (AUTO) 1.8 % (0-6); HEMATOCRIT 25.2 % (37.9-51.0); HEMOGLOBIN 8.2 g/dL (13.5-17.0); HGB HCT DIFFERENCE -0.6; LYMPHOCYTES % (AUTO) 20.3 % (13-45); MEAN CORPUSCULAR HEMOGLOBIN 27.6 pg (27.0-33.4); MEAN CORPUSCULAR HGB CONC 32.4 g/dL (32.0-36.0); MEAN CORPUSCULAR VOLUME 85 fl (80-97); MONOCYTES % (AUTO) 7.4 % (3-13); RED BLOOD COUNT 2.96 10^6/uL (4.35-5.55); RED CELL DISTRIBUTION WIDTH 16.9 % (11.5-14.0); SEGMENTED NEUTROPHILS % (AUTO) 70.2 % (42-78); WHITE BLOOD COUNT 4.6 10^3/uL (4.0-10.5)
[2016-11-14 05:40] LABS: ALANINE AMINOTRANSFERASE 24 U/L (21-72); ALBUMIN 2.5 g/dL (3.5-5.0); ALKALINE PHOSPHATASE 50 U/L (38-126); ASPARTATE AMINO TRANSFERASE 14 U/L (17-59); BILIRUBIN,DIRECT 0.3 mg/dL (0.0-0.4); BILIRUBIN,TOTAL 0.4 mg/dL (0.2-1.3); BLOOD UREA NITROGEN 12 mg/dL (7-20); CALCIUM 9.2 mg/dL (8.4-10.2); CARBON DIOXIDE 33 mmol/L (22-30); CHLORIDE 102 mmol/L (98-107); CREATININE RESULT 0.74 mg/dL (0.52-1.25); GLUCOSE 87 mg/dL (75-110); POTASSIUM 4.2 mmol/L (3.6-5.0); SODIUM 138.1 mmol/L (137-145); TOTAL PROTEIN 4.7 g/dL (6.3-8.2)
[2016-11-14 06:27] LABS: ANION GAP 3 (5-19)
[2016-11-14] MEDS: POTASSIUM CHLORIDE 20 MEQ/15 ML UDCUP PO SCH (10:17)
[2016-11-14] MEDS: DILTIAZEM HCL 180 MG CAPSULE.CR PO SCH (10:17)
[2016-11-14] MEDS: LANSOPRAZOLE 30 MG TAB.RAP.DR PO SCH (10:18)
[2016-11-14] MEDS: ROFLUMILAST 500 MCG TABLET PO SCH (10:18)
[2016-11-14] MEDS: SERTRALINE HCL 50 MG TABLET PO SCH (10:18)
[2016-11-14] MEDS: FINASTERIDE 5 MG TABLET PO SCH (10:18)
[2016-11-14] MEDS: MEGESTROL ACETATE 20 MG TABLET PO SCH (10:19)
[2016-11-14] MEDS: TIOTROPIUM BROMIDE DPI 5 CAP/KIT (18 MCG/CAP) IH SCH (10:19)
[2016-11-14] MEDS: DABIGATRAN ETEXILATE 150 MG CAPSULE PO SCH (10:21)
[2016-11-14] MEDS: HYDROCHLOROTHIAZIDE 25 MG TABLET PO SCH (10:25)
--- NOTE | 2016-11-14 15:21 | PDOC TRANSFER SUMMARY ---
General - Admit/Disc Date/PCP Admission Date/Primary Care Provider: 11/09/16 16:21 SIDRA IBARRA MD Discharge Date: 11/14/16 - Discharge Diagnosis (1) Hypotension Is this a current diagnosis for this admission?: Yes (2) Atrial fibrillation with rapid ventricular response Is this a current diagnosis for this admission?: Yes (3) Undernutrition Is this a current diagnosis for this admission?: Yes (4) Chronic respiratory failure Is this a current diagnosis for this admission?: Yes (5) End stage chronic obstructive pulmonary disease Is this a current diagnosis for this admission?: Yes (6) Anemia Is this a current diagnosis for this admission?: Yes (7) Hypokalemia Is this a current diagnosis for this admission?: Yes - Additional Information Home Medications: Dabigatran Etexilate Mesylate [Pradaxa 150 mg Capsule] 150 mg PO Q12 11/09/16 Diltiazem HCl [Diltiazem 24Hr ER] 180 mg PO DAILY 11/09/16 Esomeprazole Mag Trihydrate [Nexium] 40 mg PO DAILY 11/09/16 Finasteride [Proscar 5 mg Tablet] 5 mg PO DAILY 11/09/16 Fluticasone/Salmeterol [Advair 250-50 Diskus 28 dose] 1 puff IH Q12 11/09/16 Hydrochlorothiazide 25 mg PO DAILY 11/09/16 Megestrol Acetate 40 mg PO DAILY 11/09/16 Montelukast Sodium [Singulair 10 mg Tablet] 10 mg PO QPM 11/09/16 Roflumilast [Daliresp 500 mcg Tablet] 500 mcg PO DAILY 11/09/16 Sertraline HCl [Zoloft 50 mg Tablet] 50 mg PO DAILY 11/09/16 Simvastatin 40 mg PO QPM 11/09/16 Tamsulosin HCl [Flomax 0.4 mg Cap.sr] 0.8 mg PO QHS 11/09/16 Tiotropium [place] [Spiriva Handihaler 18 mcg/dose (30 Dose)] 1 cap IH DAILY History of Present Illness Admission Date/PCP: 11/09/16 16:21 SIDRA IBARRA MD History of Present Illness: BROCK CAMP is a 75 year old male, he came to the office with his family in the wheelchair for evaluation of progressive weight loss, complete lack of energy, low blood pressure, shortness of breath on mild exertion. He has multiple comorbid conditions including chronic obstructive lung disease, chronic respiratory failure on home oxygen, chronic atrial fibrillation on anticoagulant. In the office he was evaluated the blood pressure was low ,80 systolic ,with a pulse of 140. He was admitted directly from the office because of concern for hypotension in the setting of atrial fibrillation with rapid ventricular response. The initial hemogram showed hemoglobin 8, the body mass index is 14.5. CT chest without contrast was done showed hyperinflation with marked chronic bullous emphysema. Hospital Course Hospital Course: Patient was admitted for evaluation of low blood pressure, anemia, generalized debilitation, was treated with IV fluid, he also had blood transfusion with 2 units of packed red blood cells. Patient is extremely deconditioned, the plan is to transfer to intermediate for rehabilitation. He has multiple comorbid conditions including chronic atrial fibrillation on chronic anticoagulation with Pradaxa, chronic respiratory on admission he had atrial fibrillation with rapid ventricular response thought to be due to dehydration, rate control is achieved with calcium channel Hawk on IV fluid therapy. Physical Exam Vital Signs: Temp Pulse Resp BP Pulse Ox 99.3 F 114 H 16 113/49 L 100 11/14/16 11:39 11/14/16 11:39 11/14/16 11:39 11/14/16 11:39 11/14/16 11:39 Intake & Output 11/13/16 11/14/16 11/15/16 06:59 06:59 06:59 Intake Total 2960 5050 375 Output Total 1500 3500 500 Balance 1460 1550 -125 Weight 57.2 kg 57.2 kg General appearance: PRESENT: no acute distress Eye exam: PRESENT: PERRLA Respiratory exam: PRESENT: decreased breath sounds Cardiovascular exam: PRESENT: +S1, +S2 GI/Abdominal exam: PRESENT: soft Neurological exam: PRESENT: alert, CN II-XII grossly intact Results Laboratory Results: 11/14/16 04:07 11/14/16 04:07 11/13/16 11/13/16 11/14/16 20:10 20:10 04:07 WBC 5.6 4.6 RBC 3.24 L 2.96 L Hgb 8.7 L 8.2 L Hct 27.8 L 25.2 L MCV 86 85 MCH 27.0 27.6 MCHC 31.4 L 32.4 RDW 16.7 H 16.9 H Plt Count 207 187 Seg Neutrophils % 73.6 70.2 Lymphocytes % 17.9 20.3 Monocytes % 6.3 7.4 Eosinophils % 1.9 1.8 Basophils % 0.3 0.3 Absolute Neutrophils 4.2 3.3 Absolute Lymphocytes 1.0 0.9 Absolute Monocytes 0.4 0.3 Absolute Eosinophils 0.1 0.1 Absolute Basophils 0.0 0.0 Sodium 139.6 Potassium 4.3 Chloride 101 Carbon Dioxide 34 H Anion Gap 5 BUN 12 Creatinine 1.06 Est GFR ( Amer) > 60 Est GFR (Non-Af Amer) > 60 Glucose 95 Calcium 9.3 Total Bilirubin 0.4 AST 15 L ALT 25 Alkaline Phosphatase 55 Total Protein 5.1 L Albumin 2.7 L 11/14/16 04:07 WBC RBC Hgb Hct MCV MCH MCHC RDW Plt Count Seg Neutrophils % Lymphocytes % Monocytes % Eosinophils % Basophils % Absolute Neutrophils Absolute Lymphocytes Absolute Monocytes Absolute Eosinophils Absolute Basophils Sodium 138.1 Potassium 4.2 Chloride 102 Carbon Dioxide 33 H Anion Gap 3 L BUN 12 Creatinine 0.74 Est GFR ( Amer) > 60 Est GFR (Non-Af Amer) > 60 Glucose 87 Calcium 9.2 Total Bilirubin 0.4 AST 14 L ALT 24 Alkaline Phosphatase 50 Total Protein 4.7 L Albumin 2.5 L 11/09/16 15:00 Blood Blood Culture - Final Staphylococcus Hominis Impressions: Chest CT 11/09/16 00:00 IMPRESSION: CHRONIC BULLOUS EMPHYSEMA. NO ACUTE FINDING ON NON-CONTRASTED CHEST CT. Chest X-Ray 11/09/16 00:00 IMPRESSION: COPD. NO ACUTE RADIOGRAPHIC FINDING IN THE CHEST.
[2016-11-14 17:46] VITALS: BP 101/45
== END 2016-11-14 18:32 | DRG 315 ==
LOC: 3N 13:31 → UNDOADMIN 13:31 → 3N 16:21
PROVIDERS: ADMIT Internal Medicine; ATTEND Internal Medicine
PROC: 3E0F73Z Introduction of Anti-inflammatory into Respiratory Tract, Via Natural or Artificial Opening (ICD-10-PCS; 2016-11-09)
PROC: 30243N1 Transfusion of Nonautologous Red Blood Cells into Central Vein, Percutaneous Approach (ICD-10-PCS; principal; 2016-11-10)
DX: I95.9 Hypotension, unspecified (principal); E46 Unspecified protein-calorie malnutrition; Z68.1 Body mass index [BMI] 19.9 or less, adult; J96.12 Chronic respiratory failure with hypercapnia; I48.2 Chronic atrial fibrillation; D64.9 Anemia, unspecified; E87.6 Hypokalemia; J43.9 Emphysema, unspecified; I25.10 Atherosclerotic heart disease of native coronary artery without angina pectoris; E78.5 Hyperlipidemia, unspecified; I10 Essential (primary) hypertension; K44.9 Diaphragmatic hernia without obstruction or gangrene; M19.90 Unspecified osteoarthritis, unspecified site; K21.0 Gastro-esophageal reflux disease with esophagitis; Z79.899 Other long term (current) drug therapy; Z99.81 Dependence on supplemental oxygen
CPT/HCPCS: 36415; 36430; 36600; 71020; 71250; 80048; 80053; 80076; 81001; 82803; 83735; 84100; 85025; 85027; 86850; 86900; 86901; 86920; 87040; 87077; 87186; 93005; 93010; J3490; J7030; J7614; P9016

== ENCOUNTER 2017-03-03 02:31 | Inpatient (IN) | payer MEDICARE, MEDICAID ==
[2017-03-03] MEDS ORDERED: NORMAL SALINE 1000 ML 1,000 ML IV ONE (02:46)
--- NOTE | 2017-03-03 02:48 | ER Document Report ---
ED General - General Stated Complaint: WEAKNESS Time Seen by Provider: 03/03/17 02:39 Notes: Patient is a 76-year-old male that comes by EMS for chief complaint of feeling short of breath and lightheaded along with feeling weak. He states that for the past 3 days he has not felt well, he has not eaten much, he has missed some of his doses of medications. He denies current shortness of breath at rest. He denies any chest pain, fever, cough, abdominal pain, vomiting. Past medical history of chronic atrial fibrillation, on Pradaxa, on Cardizem, defibrillator, COPD, former smoker. He lives by himself. He is on 3 L nasal cannula at all times at home. TRAVEL OUTSIDE OF THE [place] IN LAST 30 DAYS: No - Related Data Allergies/Adverse Reactions: No Known Allergies Allergy (Verified 06/19/16 15:21) Past Medical History - General Information source: Patient - Social History Smoking Status: Former Smoker Frequency of alcohol use: None Drug Abuse: None Lives with: Alone Family History: Reviewed & Not Pertinent - Past Medical History Cardiac Medical History: Reports: Hx Atrial Fibrillation - paroxysmal, Hx Coronary Artery Disease, Hx Hypercholesterolemia, Hx Hypertension Denies: Hx Heart Attack Pulmonary Medical History: Reports: Hx Asthma, Hx Bronchitis, Hx COPD, Hx Pneumonia - september 2011, Hx Respiratory Failure Denies: Hx Tuberculosis Neurological Medical History: Denies: Hx Cerebrovascular Accident, Hx Seizures Renal/ Medical History: Reports: Hx Benign Prostatic Hyperplasia, Hx Kidney Stones GI Medical History: Reports: Hx Hiatal Hernia Musculoskeltal Medical History: Reports Hx Arthritis Past Surgical History: Reports: Hx Pacemaker - Immunizations Hx Diphtheria, Pertussis, Tetanus Vaccination: Yes Hx Pneumococcal Vaccination: 04/29/10 Review of Systems - Review of Systems Constitutional: See HPI EENT: No symptoms reported Cardiovascular: See HPI Respiratory: See HPI Gastrointestinal: No symptoms reported Genitourinary: No symptoms reported Male Genitourinary: No symptoms reported Musculoskeletal: No symptoms reported Skin: No symptoms reported Hematologic/Lymphatic: No symptoms reported Neurological/Psychological: No symptoms reported Physical Exam - Vital signs Vitals: Resp 20 03/03/17 02:36 Interpretation: Normal - General General appearance: Appears well, Alert In distress: None - HEENT Head: Normocephalic, Atraumatic Eyes: Normal Pupils: PERRL - Respiratory Respiratory status: No respiratory distress. No: Labored, Tachypnea Chest status: Nontender Breath sounds: Decreased air movement. No: Nonproductive cough, Productive cough, Rales, Rhonchi, Stridor, Wheezing Chest palpation: Normal - Cardiovascular Rhythm: Irregularly irregular, Tachycardia Heart sounds: Normal auscultation, S1 appreciated, S2 appreciated Normal capillary refill: Yes - Abdominal Inspection: Normal Distension: No distension Bowel sounds: Normal Tenderness: Nontender. No: Tender, Guarding Organomegaly: No organomegaly - Back Back: Normal, Nontender. No: Tender - Extremities General upper extremity: Normal inspection, Nontender, Normal color, Normal ROM , Normal temperature General lower extremity: Normal inspection, Nontender, Normal color, Normal ROM , Normal temperature, Normal weight bearing. No: Sally's sign - Neurological Neuro grossly intact: Yes Cognition: Normal Orientation: AAOx4 Rajeev Coma Scale Eye Opening: Spontaneous [place] Coma Scale Verbal: Oriented [place] Coma Scale Motor: Obeys Commands Rajeev Coma Scale Total: 15 Speech: Normal Motor strength normal: LUE, RUE, LLE, RLE Sensory: Normal - Psychological Associated symptoms: Normal affect, Normal mood - Skin Skin Temperature: Warm Skin Moisture: Dry Skin Color: Normal Course - Re-evaluation Re-evalutation: 03/03/17 03:48 Patient initially tachycardic in the 130s with atrial fibrillation with rapid ventricular response noted on the monitor. However patient was given 1 L IV fluid bolus, after EKG was obtained EKG shows sinus tachycardia at a rate of 121. No T-wave inversions in consecutive leads or ST segment changes, no significant change from prior. Patient has a soft abdomen, clear lungs, he is generally well-appearing. CBC shows significant anemia at hemoglobin of 7.0. This is most likely the cause of patient's symptoms. I checked his rectal exam, I did not see any gross bleeding, patient denies any blood in his stool recently, laboratory results is negative for blood in the stool. Chemistry generally unremarkable, cardiac enzymes not elevated, urinalysis shows evidence of some dehydration but is otherwise unremarkable. Beginning transfusion. Patient is still somewhat tachycardic. He states he has had trouble eating and caring for himself at home. He lives alone. Concern about whether or not patient will be stable for discharge. He is not stable at this time. Discussed with Dr. Oreilly, recommends admission to the hospital. Discussed with Dr. Petty, on-call for Dr. Douglas patient's primary provider, patient will be admitted to telemetry. Patient states satisfaction and agreement with this plan. - Vital Signs Vital signs: Temp Pulse Resp BP Pulse Ox 98.4 F 110 H 16 115/48 L 100 03/03/17 06:32 03/03/17 06:32 03/03/17 06:32 03/03/17 06:32 03/03/17 06:32 - Laboratory Result Diagrams: 03/03/17 02:45 03/03/17 02:45 Laboratory results interpreted by me: 03/03/17 03/03/17 03/03/17 02:45 02:45 03:15 RBC 2.30 L Hgb 7.0 L Hct 21.4 L RDW 19.9 H Seg Neutrophils % 79.7 H Lymphocytes % 12.4 L BUN 40 H Glucose 118 H AST 11 L Creatine Kinase < 20 L Total Protein 5.6 L Urine Ketones Urine Blood Ur Leukocyte Esterase Crossmatch See Detail 03/03/17 04:35 RBC Hgb Hct RDW Seg Neutrophils % Lymphocytes % BUN Glucose AST Creatine Kinase Total Protein Urine Ketones TRACE H Urine Blood SMALL H Ur Leukocyte Esterase TRACE H Crossmatch Discharge - Discharge Clinical Impression: Symptomatic anemia, Tachycardia, Shortness of breath, Weakness Condition: Stable Disposition: ADMITTED INPATIENT Admitting Provider: Jovanny Douglas Unit Admitted: Telemetry
[2017-03-03 03:04] LABS: ABSOLUTE LYMPHOCYTES (AUTO) 1.1 10^3/uL (0.5-4.7); ABSOLUTE MONOCYTES (AUTO) 0.7 10^3/uL (0.1-1.4); ABSOLUTE NEUT (AUTO) 7.1 10^3/uL (1.7-8.2); BASOPHILS % (AUTO) 0.4 % (0-2); EOSINOPHILS % (AUTO) 0.1 % (0-6); HEMATOCRIT 21.4 % (37.9-51.0); HGB HCT DIFFERENCE -0.4; LYMPHOCYTES % (AUTO) 12.4 % (13-45); MEAN CORPUSCULAR HEMOGLOBIN 30.4 pg (27.0-33.4); MEAN CORPUSCULAR HGB CONC 32.6 g/dL (32.0-36.0); MEAN CORPUSCULAR VOLUME 93 fl (80-97); MONOCYTES % (AUTO) 7.4 % (3-13); RED CELL DISTRIBUTION WIDTH 19.9 % (11.5-14.0); SEGMENTED NEUTROPHILS % (AUTO) 79.7 % (42-78); WHITE BLOOD COUNT 8.8 10^3/uL (4.0-10.5)
--- NOTE | 2017-03-03 03:09 | RADIOLOGY REPORT (SQ) ---
EXAM DESCRIPTION: CHEST SINGLE VIEW COMPLETED DATE/TIME: 03/03/2017 3:01 am REASON FOR STUDY: shortness of breath COMPARISON: 11/09/2016 EXAM PARAMETERS: NUMBER OF VIEWS: One view. TECHNIQUE: Single frontal radiographic view of the chest acquired. RADIATION DOSE: NA LIMITATIONS: None. FINDINGS: LUNGS AND PLEURA: Severe emphysema. No focal airspace disease, pleural effusion, or pneum othorax. MEDIASTINUM AND HILAR STRUCTURES: No masses. Contour normal. HEART AND VASCULAR STRUCTURES: Heart normal in size. Normal vasculature. BONES: No acute findings. HARDWARE: None in the chest. OTHER: No other significant finding. IMPRESSION: SEVERE EMPHYSEMA. NO ACUTE CARDIOPULMONARY PROCESS. NO SIGNIFICANT CHANGE FROM PRIOR S VASYL. TECHNICAL DOCUMENTATION: JOB ID: [id number] [employer]- All Rights Reserved
[2017-03-03 03:43] LABS: CREATINE KINASE MB < 0.22 ng/mL (<4.55); TROPONIN I < 0.012 ng/mL
[2017-03-03 03:46] LABS: ALANINE AMINOTRANSFERASE 25 U/L (21-72); ALBUMIN 3.5 g/dL (3.5-5.0); ALKALINE PHOSPHATASE 51 U/L (38-126); ANION GAP 12 (5-19); ASPARTATE AMINO TRANSFERASE 11 U/L (17-59); BILIRUBIN,DIRECT 0.4 mg/dL (0.0-0.4); BILIRUBIN,TOTAL 0.5 mg/dL (0.2-1.3); BLOOD UREA NITROGEN 40 mg/dL (7-20); CALCIUM 9.7 mg/dL (8.4-10.2); CARBON DIOXIDE 30 mmol/L (22-30); CHLORIDE 102 mmol/L (98-107); GLUCOSE 118 mg/dL (75-110); MAGNESIUM 1.8 mg/dL (1.6-2.3); POTASSIUM 3.6 mmol/L (3.6-5.0); SODIUM 143.9 mmol/L (137-145); TOTAL PROTEIN 5.6 g/dL (6.3-8.2)
[2017-03-03 03:48] LABS: CREATINE KINASE < 20 U/L (55-170)
[2017-03-03] MEDS ORDERED: NORMAL SALINE 250 ML IV PRN ×2 (04:14)
[2017-03-03 05:15] LABS: APPEARANCE,URINE CLEAR; BILIRUBIN,URINE NEGATIVE (NEGATIVE); GLUCOSE, URINE NEGATIVE (NEGATIVE); KETONES,URINE TRACE mg/dL (NEGATIVE); LEUKOCYTE ESTERASE,URINE TRACE (NEGATIVE); NITRITE,URINE NEGATIVE (NEGATIVE); PROTEIN,URINE NEGATIVE (NEGATIVE); URINE SPECIFIC GRAVITY 1.018; UROBILINOGEN,URINE NEGATIVE mg/dL (<2.0)
[2017-03-03] MEDS ORDERED: ALBUTEROL SULFATE HFA (90 MCG/PUFF) 200 PUFF/8.5 GM MDI IH PRN (11:02)
--- NOTE | 2017-03-03 12:45 | PDOC H&P ---
History of Present Illness Admission Date/PCP: 03/03/17 05:58 History of Present Illness: BROCK CAMP is a 76 year old male patient of Dr Douglas who was brought to the ED by EMS crew with complain of generalized weakness, shortness of breath and lightheadedness. Patient reported that he has not been feeling well for about 3 days prior to his presentation in the ED. Due to his current illness he has been missing some of his medication administration. His initial findings in the ED revealed significant tachycardia with monitoring analyst revealing atrial fibrillation. There was concern for associated significant anemia with hemoglobin in the 7.0 gm/dL range. His stool guaiac test for occult blood was negative. I spoke with his daughter via telephone earlier this morning and she reported that patient usually present to the hospital like this in the past. She requested for SNF placement [facility]. His morbidities include COPD with need for supplemental oxygen, Paroxysmal Atrial Fibrillation, Hypertension, Hyperlipidemia, BPH, Renal stones, Osteoarthritis, Hiatus hernia, and Pacemaker placement. Past Medical History Cardiac Medical History: Reports: Atrial Fibrillation - paroxysmal, Coronary Artery Disease, Hyperlipidema, Hypertension Denies: Myocardial Infarction Pulmonary Medical History: Reports: Asthma, Bronchitis, Chronic Obstructive Pulmonary Disease (COPD), Pneumonia - september 2011, Respiratory Failure Denies: Tuberculosis Neurological Medical History: Denies: Seizures GI Medical History: Reports: Hiatal Hernia Musculoskeltal Medical History: Reports: Arthritis Psychiatric Medical History: Reports: Depression Hematology: Reports: Anemia - chronic Past Surgical History Past Surgical History: Reports: Pacemaker Social History Lives with: Alone Smoking Status: Former Smoker Frequency of Alcohol Use: None Hx Recreational Drug Use: No - denies Drugs: None Hx Prescription Drug Abuse: No - Advance Directive Resuscitation Status: Full Code Family History Family History: Reviewed & Not Pertinent Parental Family History Reviewed: Yes Children Family History Reviewed: Yes Sibling(s) Family History Reviewed.: Yes Medication/Allergy Home Medications: Dabigatran Etexilate Mesylate [Pradaxa 150 mg Capsule] 150 mg PO Q12 11/09/16 Diltiazem HCl [Diltiazem 24Hr ER] 180 mg PO DAILY 11/09/16 Esomeprazole Mag Trihydrate [Nexium] 40 mg PO DAILY 11/09/16 Finasteride [Proscar 5 mg Tablet] 5 mg PO DAILY 11/09/16 Fluticasone/Salmeterol [Advair 250-50 Diskus 28 dose] 1 puff IH Q12 11/09/16 Hydrochlorothiazide 25 mg PO DAILY 11/09/16 Montelukast Sodium [Singulair 10 mg Tablet] 10 mg PO QPM 11/09/16 Sertraline HCl [Zoloft 50 mg Tablet] 50 mg PO DAILY 11/09/16 Simvastatin 40 mg PO QHS 11/09/16 Tamsulosin HCl [Flomax 0.4 mg Cap.sr] 0.8 mg PO QHS 11/09/16 Tiotropium [place] [Spiriva Handihaler 18 mcg/dose (30 Dose)] 1 cap IH DAILY Albuterol Sulfate [Proair Hfa Inhalation Aerosol 8.5 gm Mdi] 2 puff IH Q4HP PRN 03/03/17 Megestrol Acetate 800 mg PO DAILY 03/03/17 Roflumilast [Daliresp 500 mcg Tablet] 500 mcg PO DAILY 03/03/17 Allergies/Adverse Reactions: No Known Allergies Allergy (Verified 06/19/16 15:21) Review of Systems Constitutional: PRESENT: anorexia, fatigue, weakness. ABSENT: as per HPI, chills, fever(s), headache(s), night sweats, weight gain, weight loss, other Eyes: PRESENT: visual disturbances Ears: PRESENT: hearing changes Nose, Mouth, and Throat: PRESENT: mouth pain. ABSENT: as per HPI, headache(s), sore throat, vertigo, other Cardiovascular: PRESENT: dyspnea on exertion, palpitations. ABSENT: as per HPI , chest pain, edema, orthropnea, other Respiratory: ABSENT: cough, hemoptysis Gastrointestinal: ABSENT: abdominal pain, constipation, diarrhea, hematemesis, hematochezia, nausea, vomiting Genitourinary: ABSENT: dysuria, hematuria Musculoskeletal: PRESENT: deformity Integumentary: ABSENT: rash, wounds Neurological: PRESENT: weakness. ABSENT: as per HPI, abnormal gait, abnormal movements, abnormal speech, confusion, convulsions, dizziness, focal weakness, frequent falls, lack of coordination, memory loss, numbness, paresthesias, restless legs, syncope, tingling, tremor(s), vertigo, other Psychiatric: ABSENT: anxiety, depression, homidical ideation, suicidal ideation Endocrine: ABSENT: cold intolerance, heat intolerance, menstrual abnormalities, polydipsia, polyuria Hematologic/Lymphatic: ABSENT: easy bleeding, easy bruising, lymphadenopathy Physical Exam Vital Signs: Temp Pulse Resp BP Pulse Ox 98.2 F 98 16 116/69 100 03/03/17 12:14 03/03/17 12:14 03/03/17 12:14 03/03/17 12:14 03/03/17 12:14 Intake & Output 03/02/17 03/03/17 03/04/17 07:59 06:59 06:59 Intake Total 350 Output Total Balance 350 Weight General appearance: PRESENT: no acute distress, well-developed, well-nourished Head exam: PRESENT: atraumatic, normocephalic Eye exam: PRESENT: conjunctiva pink, EOMI, PERRLA. ABSENT: scleral icterus Mouth exam: PRESENT: moist Neck exam: PRESENT: full ROM. ABSENT: carotid bruit, JVD, lymphadenopathy, thyromegaly Respiratory exam: PRESENT: clear to auscultation usman Cardiovascular exam: PRESENT: RRR. ABSENT: diastolic murmur, rubs, systolic murmur Pulses: PRESENT: normal dorsalis pedis pul, +2 pedal pulses bilateral Vascular exam: PRESENT: normal capillary refill. ABSENT: pallor GI/Abdominal exam: PRESENT: normal bowel sounds, soft. ABSENT: distended, guarding, mass, organolmegaly, rebound, tenderness Rectal exam: PRESENT: deferred - completed during ED evaluation, heme (-) stool Extremities exam: ABSENT: pedal edema Musculoskeletal exam: PRESENT: normal inspection Neurological exam: PRESENT: alert, awake, oriented to person, oriented to place , oriented to time, oriented to situation, CN II-XII grossly intact. ABSENT: motor sensory deficit Psychiatric exam: PRESENT: appropriate affect, normal mood. ABSENT: homicidal ideation, suicidal ideation Skin exam: PRESENT: dry, intact, warm. ABSENT: cyanosis, rash Results Impressions: Chest X-Ray 03/03/17 02:45 IMPRESSION: SEVERE EMPHYSEMA. NO ACUTE CARDIOPULMONARY PROCESS. NO SIGNIFICANT CHANGE FROM PRIOR STUDY. Assessment & Plan - Diagnosis (1) Symptomatic anemia Is this a current diagnosis for this admission?: Yes Plan: See covering admitting attending physician orders. (2) Atrial fibrillation with rapid ventricular response Is this a current diagnosis for this admission?: Yes Plan: See covering admitting attending physician orders. (3) End stage chronic obstructive pulmonary disease Is this a current diagnosis for this admission?: Yes Plan: See covering admitting attending physician orders. - Time Time Spent: 50 to 70 Minutes Medications reviewed and adjusted accordingly: Yes Anticipated discharge: SNF - for short term rehabilitation at [facility] as per daughter's choice. - Inpatient Certification Based on my medical assessment, after consideration of the patient's comorbidities, presenting symptoms, or acuity I expect that the services needed warrant INPATIENT care.: Yes I certify that my determination is in accordance with my understanding of Medicare's requirements for reasonable and necessary INPATIENT services [42 CFR 412.3e].: Yes Medical Necessity: Need Close Monitoring Due to Risk of Patient Decompensation, Need For IV Fluids, Need For Continuous Telemetry Monitoring, Risk of Complication if Not Cared For in Hospital Post Hospital Care: D/C [employer] Documentation - Plan Summary Plan Summary: See covering admitting attending physician orders.
[2017-03-03] MEDS ORDERED: MULTIVIT-STRESS FORMULA/ZINC TABLET PO ONE (13:00)
--- NOTE | 2017-03-03 15:03 | EKG REPORT ---
SEVERITY:- ABNORMAL ECG - SINUS TACHYCARDIA ANTERIOR INFARCT, AGE INDETERMINATE : Confirmed by: Matilda Gomez 03-Mar-2017 15:01:47
[2017-03-03 15:27] LABS: ABSOLUTE LYMPHOCYTES (AUTO) 0.9 10^3/uL (0.5-4.7); ABSOLUTE MONOCYTES (AUTO) 0.7 10^3/uL (0.1-1.4); ABSOLUTE NEUT (AUTO) 7.2 10^3/uL (1.7-8.2); BASOPHILS % (AUTO) 0.4 % (0-2); EOSINOPHILS % (AUTO) 0.3 % (0-6); HEMATOCRIT 24.5 % (37.9-51.0); HEMOGLOBIN 8.4 g/dL (13.5-17.0); HGB HCT DIFFERENCE 0.7; LYMPHOCYTES % (AUTO) 10.5 % (13-45); MEAN CORPUSCULAR HEMOGLOBIN 31.8 pg (27.0-33.4); MEAN CORPUSCULAR HGB CONC 34.2 g/dL (32.0-36.0); MEAN CORPUSCULAR VOLUME 93 fl (80-97); MONOCYTES % (AUTO) 8.3 % (3-13); RED BLOOD COUNT 2.63 10^6/uL (4.35-5.55); RED CELL DISTRIBUTION WIDTH 16.8 % (11.5-14.0); SEGMENTED NEUTROPHILS % (AUTO) 80.5 % (42-78); WHITE BLOOD COUNT 8.9 10^3/uL (4.0-10.5)
[2017-03-03] MEDS: NORMAL SALINE 1000 ML 1,000 ML IV PRN ×2 (15:30→23:43)
[2017-03-03] MEDS: MONTELUKAST SODIUM 10 MG TABLET PO SCH (17:53)
[2017-03-03] MEDS: SIMVASTATIN 40 MG TABLET PO SCH (21:30)
[2017-03-03] MEDS: FLUTICASONE/SALMETEROL DISKUS 250-50 MCG/DOSE IH SCH (21:30)
[2017-03-03] MEDS: TAMSULOSIN HCL 0.4 MG CAP.SR.24H PO SCH (21:30)
[2017-03-03] MEDS: DABIGATRAN ETEXILATE 150 MG CAPSULE PO SCH (21:31)
[2017-03-04] MEDS: LANSOPRAZOLE 30 MG TAB.RAP.DR PO SCH (06:08)
[2017-03-04 07:33] LABS: ABSOLUTE EOSINOPHILS # (AUTO) 0.1 10^3/uL (0.0-0.6); ABSOLUTE LYMPHOCYTES (AUTO) 0.7 10^3/uL (0.5-4.7); ABSOLUTE MONOCYTES (AUTO) 0.4 10^3/uL (0.1-1.4); ABSOLUTE NEUT (AUTO) 4.7 10^3/uL (1.7-8.2); BASOPHILS % (AUTO) 0.4 % (0-2); EOSINOPHILS % (AUTO) 1.1 % (0-6); HEMATOCRIT 20.8 % (37.9-51.0); HGB HCT DIFFERENCE 0.5; MEAN CORPUSCULAR HEMOGLOBIN 31.9 pg (27.0-33.4); MEAN CORPUSCULAR HGB CONC 34.2 g/dL (32.0-36.0); MEAN CORPUSCULAR VOLUME 93 fl (80-97); MONOCYTES % (AUTO) 7.2 % (3-13); RED BLOOD COUNT 2.23 10^6/uL (4.35-5.55); SEGMENTED NEUTROPHILS % (AUTO) 79.3 % (42-78)
[2017-03-04 07:35] LABS: HEMOGLOBIN 7.1 g/dL (13.5-17.0)
[2017-03-04 07:39] LABS: ALANINE AMINOTRANSFERASE 19 U/L (21-72); ALBUMIN 2.5 g/dL (3.5-5.0); ALKALINE PHOSPHATASE 36 U/L (38-126); ASPARTATE AMINO TRANSFERASE 10 U/L (17-59); BILIRUBIN,DIRECT 0.2 mg/dL (0.0-0.4); BILIRUBIN,TOTAL 0.7 mg/dL (0.2-1.3); BLOOD UREA NITROGEN 22 mg/dL (7-20); CALCIUM 8.7 mg/dL (8.4-10.2); CREATININE RESULT 0.78 mg/dL (0.52-1.25); GLUCOSE 91 mg/dL (75-110); POTASSIUM 3.7 mmol/L (3.6-5.0); TOTAL PROTEIN 4.3 g/dL (6.3-8.2)
[2017-03-04 07:53] LABS: ANION GAP 5 (5-19); CARBON DIOXIDE 33 mmol/L (22-30); CHLORIDE 102 mmol/L (98-107); SODIUM 140.2 mmol/L (137-145)
[2017-03-04] MEDS: NORMAL SALINE 1000 ML 1,000 ML IV PRN (09:56)
[2017-03-04] MEDS: SERTRALINE HCL 50 MG TABLET PO SCH (09:57)
[2017-03-04] MEDS: ROFLUMILAST 500 MCG TABLET PO SCH (09:57)
[2017-03-04] MEDS: MULTIVIT-STRESS FORMULA/ZINC TABLET PO SCH (09:57)
[2017-03-04] MEDS: FINASTERIDE 5 MG TABLET PO SCH (09:57)
[2017-03-04] MEDS: DABIGATRAN ETEXILATE 150 MG CAPSULE PO SCH ×2 (09:58→21:44)
[2017-03-04] MEDS ORDERED: (PENDING PHARMACY ID) (Diltiazem Hcl [Diltiazem 24hr Er] 180 MG) PO SCH (10:00)
[2017-03-04] MEDS ORDERED: (PENDING PHARMACY ID) (Esomeprazole Mag Trihydrate [Nexium] 40 MG) PO SCH (10:00)
[2017-03-04] MEDS ORDERED: (PENDING PHARMACY ID) (Roflumilast [Daliresp 500 Mcg Tablet] 500 MCG) PO SCH (10:00)
[2017-03-04] MEDS: DILTIAZEM HCL 180 MG CAPSULE.CR PO SCH (10:00)
[2017-03-04] MEDS ORDERED: MEGESTROL ACETATE SUSP 400 MG/10 ML UDCUP PO SCH (10:00)
[2017-03-04] MEDS ORDERED: (PENDING PHARMACY ID) (Megestrol Acetate [Megestrol Acetate] 800 MG) PO SCH (10:00)
[2017-03-04] MEDS ORDERED: HYDROCHLOROTHIAZIDE 25 MG TABLET PO SCH (10:00)
[2017-03-04] MEDS: FLUTICASONE/SALMETEROL DISKUS 250-50 MCG/DOSE IH SCH ×2 (10:01→21:43)
[2017-03-04] MEDS: TIOTROPIUM BROMIDE DPI 5 CAP/KIT (18 MCG/CAP) IH SCH (10:01)
[2017-03-04] MEDS: MONTELUKAST SODIUM 10 MG TABLET PO SCH (17:24)
--- NOTE | 2017-03-04 20:55 | PDOC PROGRESS REPORT ---
Subjective Progress Note for:: 03/04/17 Subjective:: He was admitted over the weekend for the management of generalized body weakness , he was found to have severe anemia requiring blood transfusion. He admitted to passing black stools Physical Exam Vital Signs: Temp Pulse Resp BP Pulse Ox 99.1 F 102 H 22 H 102/51 L 100 03/04/17 15:58 03/04/17 15:58 03/04/17 15:58 03/04/17 15:58 03/04/17 15:58 Intake & Output 03/03/17 03/04/17 03/05/17 06:59 06:59 06:59 Intake Total 3230 2380 Output Total 1700 300 Balance 1530 2080 Weight General appearance: PRESENT: thin Head exam: PRESENT: atraumatic, normocephalic Eye exam: PRESENT: PERRLA. ABSENT: scleral icterus Neck exam: PRESENT: full ROM Respiratory exam: PRESENT: clear to auscultation usman Cardiovascular exam: PRESENT: RRR, +S1, +S2 Pulses: PRESENT: normal dorsalis pedis pul, +2 pedal pulses bilateral Vascular exam: PRESENT: normal capillary refill GI/Abdominal exam: PRESENT: normal bowel sounds, soft Rectal exam: PRESENT: deferred Neurological exam: PRESENT: alert Psychiatric exam: PRESENT: appropriate affect, normal mood Skin exam: PRESENT: dry, intact, warm Results Laboratory Results: 03/04/17 06:52 03/04/17 06:52 03/04/17 03/04/17 06:52 06:52 WBC 6.0 RBC 2.23 L Hgb 7.1 L Hct 20.8 L MCV 93 MCH 31.9 MCHC 34.2 RDW 17.0 H Plt Count 190 Seg Neutrophils % 79.3 H Lymphocytes % 12.0 L Monocytes % 7.2 Eosinophils % 1.1 Basophils % 0.4 Absolute Neutrophils 4.7 Absolute Lymphocytes 0.7 Absolute Monocytes 0.4 Absolute Eosinophils 0.1 Absolute Basophils 0.0 Sodium 140.2 Potassium 3.7 Chloride 102 Carbon Dioxide 33 H Anion Gap 5 BUN 22 H Creatinine 0.78 Est GFR ( Amer) > 60 Est GFR (Non-Af Amer) > 60 Glucose 91 Calcium 8.7 Total Bilirubin 0.7 AST 10 L ALT 19 L Alkaline Phosphatase 36 L Total Protein 4.3 L Albumin 2.5 L Impressions: Chest X-Ray 03/03/17 02:45 IMPRESSION: SEVERE EMPHYSEMA. NO ACUTE CARDIOPULMONARY PROCESS. NO SIGNIFICANT CHANGE FROM PRIOR STUDY. Assessment & Plan - Diagnosis (1) Gastrointestinal bleeding Qualifiers: GI bleed type/associated pathology: unspecified gastrointestinal hemorrhage type Qualified Code(s): K92.2 - Gastrointestinal hemorrhage, unspecified Is this a current diagnosis for this admission?: Yes Plan: Continue blood transfusion, GI consultation will be obtained (2) Anemia due to acute blood loss Is this a current diagnosis for this admission?: Yes (3) End stage chronic obstructive pulmonary disease Is this a current diagnosis for this admission?: Yes
[2017-03-04] MEDS: SIMVASTATIN 40 MG TABLET PO SCH (21:42)
[2017-03-04] MEDS: TAMSULOSIN HCL 0.4 MG CAP.SR.24H PO SCH (21:43)
[2017-03-05] MEDS: LANSOPRAZOLE 30 MG TAB.RAP.DR PO SCH (06:31)
[2017-03-05] MEDS: DABIGATRAN ETEXILATE 150 MG CAPSULE PO SCH ×2 (10:45→22:34)
[2017-03-05] MEDS: DILTIAZEM HCL 180 MG CAPSULE.CR PO SCH (10:46)
[2017-03-05] MEDS: MULTIVIT-STRESS FORMULA/ZINC TABLET PO SCH (10:47)
[2017-03-05] MEDS: FLUTICASONE/SALMETEROL DISKUS 250-50 MCG/DOSE IH SCH ×2 (10:47→22:34)
[2017-03-05] MEDS: SERTRALINE HCL 50 MG TABLET PO SCH (10:47)
[2017-03-05] MEDS: ROFLUMILAST 500 MCG TABLET PO SCH (10:47)
[2017-03-05] MEDS: TIOTROPIUM BROMIDE DPI 5 CAP/KIT (18 MCG/CAP) IH SCH (10:47)
[2017-03-05] MEDS: FINASTERIDE 5 MG TABLET PO SCH (10:48)
[2017-03-05 14:31] LABS: ABSOLUTE EOSINOPHILS # (AUTO) 0.1 10^3/uL (0.0-0.6); ABSOLUTE LYMPHOCYTES (AUTO) 0.8 10^3/uL (0.5-4.7); ABSOLUTE MONOCYTES (AUTO) 0.3 10^3/uL (0.1-1.4); ABSOLUTE NEUT (AUTO) 3.6 10^3/uL (1.7-8.2); BASOPHILS % (AUTO) 0.2 % (0-2); EOSINOPHILS % (AUTO) 1.4 % (0-6); HEMATOCRIT 20.5 % (37.9-51.0); HGB HCT DIFFERENCE 0.2; LYMPHOCYTES % (AUTO) 16.1 % (13-45); MEAN CORPUSCULAR HEMOGLOBIN 31.5 pg (27.0-33.4); MEAN CORPUSCULAR HGB CONC 33.8 g/dL (32.0-36.0); MEAN CORPUSCULAR VOLUME 93 fl (80-97); MONOCYTES % (AUTO) 7.1 % (3-13); RED CELL DISTRIBUTION WIDTH 16.8 % (11.5-14.0); SEGMENTED NEUTROPHILS % (AUTO) 75.2 % (42-78); WHITE BLOOD COUNT 4.7 10^3/uL (4.0-10.5)
[2017-03-05 14:34] LABS: HEMOGLOBIN 6.9 g/dL (13.5-17.0)
[2017-03-05 14:45] LABS: ALANINE AMINOTRANSFERASE 21 U/L (21-72); ALBUMIN 2.4 g/dL (3.5-5.0); ALKALINE PHOSPHATASE 37 U/L (38-126); ASPARTATE AMINO TRANSFERASE 11 U/L (17-59); BILIRUBIN,DIRECT 0.3 mg/dL (0.0-0.4); BILIRUBIN,TOTAL 0.5 mg/dL (0.2-1.3); BLOOD UREA NITROGEN 16 mg/dL (7-20); CALCIUM 9.1 mg/dL (8.4-10.2); CARBON DIOXIDE 34 mmol/L (22-30); CREATININE RESULT 0.65 mg/dL (0.52-1.25); GLUCOSE 101 mg/dL (75-110); POTASSIUM 3.7 mmol/L (3.6-5.0); TOTAL PROTEIN 4.2 g/dL (6.3-8.2)
[2017-03-05 14:55] LABS: CHLORIDE 100 mmol/L (98-107); SODIUM 138.3 mmol/L (137-145)
[2017-03-05 14:56] LABS: ANION GAP 4 (5-19)
[2017-03-05] MEDS: MONTELUKAST SODIUM 10 MG TABLET PO SCH (17:51)
--- NOTE | 2017-03-05 18:05 | PDOC PROGRESS REPORT ---
Subjective Progress Note for:: 03/05/17 Subjective:: The hemoglobin is 6.9 after many blood transfusion, GI consultation is obtained for colonoscopy and EGD. Patient is also malnourished, body mass index 15.2 Physical Exam Vital Signs: Temp Pulse Resp BP Pulse Ox 99.1 F 91 20 94/50 L 100 03/05/17 17:30 03/05/17 17:30 03/05/17 17:30 03/05/17 17:30 03/05/17 17:30 Intake & Output 03/04/17 03/05/17 03/06/17 06:59 06:59 06:59 Intake Total 3230 2800 0 Output Total 1700 1050 Balance 1530 1750 0 General appearance: PRESENT: no acute distress, thin Eye exam: PRESENT: PERRLA Respiratory exam: PRESENT: decreased breath sounds Cardiovascular exam: PRESENT: +S1, +S2 GI/Abdominal exam: PRESENT: soft Neurological exam: PRESENT: alert, CN II-XII grossly intact Results Laboratory Results: 03/05/17 13:43 03/05/17 13:43 03/05/17 03/05/17 03/05/17 12:50 13:43 13:43 WBC 4.7 RBC 2.20 L Hgb 6.9 L Hct 20.5 L MCV 93 MCH 31.5 MCHC 33.8 RDW 16.8 H Plt Count 183 Seg Neutrophils % 75.2 Lymphocytes % 16.1 Monocytes % 7.1 Eosinophils % 1.4 Basophils % 0.2 Absolute Neutrophils 3.6 Absolute Lymphocytes 0.8 Absolute Monocytes 0.3 Absolute Eosinophils 0.1 Absolute Basophils 0.0 Sodium 138.3 Potassium 3.7 Chloride 100 Carbon Dioxide 34 H Anion Gap 4 L BUN 16 Creatinine 0.65 Est GFR ( Amer) > 60 Est GFR (Non-Af Amer) > 60 Glucose 101 Calcium 9.1 Total Bilirubin 0.5 AST 11 L ALT 21 Alkaline Phosphatase 37 L Total Protein 4.2 L Albumin 2.4 L Stool Occult Blood POSITIVE Impressions: Chest X-Ray 03/03/17 02:45 IMPRESSION: SEVERE EMPHYSEMA. NO ACUTE CARDIOPULMONARY PROCESS. NO SIGNIFICANT CHANGE FROM PRIOR STUDY. Assessment & Plan - Diagnosis (1) Gastrointestinal bleeding Qualifiers: GI bleed type/associated pathology: unspecified gastrointestinal hemorrhage type Qualified Code(s): K92.2 - Gastrointestinal hemorrhage, unspecified Is this a current diagnosis for this admission?: Yes (2) Anemia due to acute blood loss Is this a current diagnosis for this admission?: Yes Plan: Transfuse packed red blood cells (3) End stage chronic obstructive pulmonary disease Is this a current diagnosis for this admission?: Yes
[2017-03-05] MEDS ORDERED: BISACODYL 5 MG TABEC PO ONE (21:00)
[2017-03-05] MEDS: TAMSULOSIN HCL 0.4 MG CAP.SR.24H PO SCH (22:34)
[2017-03-05] MEDS: SIMVASTATIN 40 MG TABLET PO SCH (22:34)
[2017-03-06] MEDS: LANSOPRAZOLE 30 MG TAB.RAP.DR PO SCH (06:33)
[2017-03-06] MEDS: NORMAL SALINE 1000 ML 1,000 ML IV PRN ×2 (06:33→13:41)
[2017-03-06] MEDS ORDERED: PEG 3350/NA SULF,BICARB,CL/KCL 4000 ML PO ONE (07:00)
[2017-03-06] MEDS: MULTIVIT-STRESS FORMULA/ZINC TABLET PO SCH (10:03)
[2017-03-06] MEDS: ROFLUMILAST 500 MCG TABLET PO SCH (10:03)
[2017-03-06] MEDS: SERTRALINE HCL 50 MG TABLET PO SCH (10:03)
[2017-03-06] MEDS: FINASTERIDE 5 MG TABLET PO SCH (10:04)
[2017-03-06] MEDS: FLUTICASONE/SALMETEROL DISKUS 250-50 MCG/DOSE IH SCH ×2 (10:04→22:12)
[2017-03-06] MEDS: TIOTROPIUM BROMIDE DPI 5 CAP/KIT (18 MCG/CAP) IH SCH (10:04)
[2017-03-06] MEDS: DILTIAZEM HCL 180 MG CAPSULE.CR PO SCH (10:05)
[2017-03-06] MEDS: DABIGATRAN ETEXILATE 150 MG CAPSULE PO SCH (10:13)
--- NOTE | 2017-03-06 16:18 | PDOC PROGRESS REPORT ---
Subjective Progress Note for:: 03/06/17 Subjective:: Patient is scheduled for colonoscopy, EGD today Physical Exam Vital Signs: Temp Pulse Resp BP Pulse Ox 98.5 F 87 12 102/53 L 100 03/06/17 11:56 03/06/17 14:00 03/06/17 11:56 03/06/17 11:56 03/06/17 11:56 Intake & Output 03/05/17 03/06/17 03/07/17 06:59 06:59 06:59 Intake Total 2800 2583 Output Total 1050 1290 Balance 1750 1293 Weight 56.6 kg General appearance: PRESENT: no acute distress Head exam: PRESENT: atraumatic, normocephalic Eye exam: PRESENT: conjunctiva pink, EOMI, PERRLA Ear exam: PRESENT: normal external ear exam Mouth exam: PRESENT: moist, tongue midline Neck exam: PRESENT: full ROM Respiratory exam: PRESENT: clear to auscultation usman Cardiovascular exam: PRESENT: RRR, +S1, +S2 Pulses: PRESENT: normal dorsalis pedis pul, +2 pedal pulses bilateral Vascular exam: PRESENT: normal capillary refill GI/Abdominal exam: PRESENT: normal bowel sounds, soft Rectal exam: PRESENT: deferred Neurological exam: PRESENT: alert, awake, oriented to person, oriented to place , oriented to time, oriented to situation, CN II-XII grossly intact. ABSENT: motor sensory deficit Psychiatric exam: PRESENT: appropriate affect, normal mood Skin exam: PRESENT: dry, intact, warm Results Laboratory Results: 03/05/17 13:43 03/05/17 13:43 Impressions: Chest X-Ray 03/03/17 02:45 IMPRESSION: SEVERE EMPHYSEMA. NO ACUTE CARDIOPULMONARY PROCESS. NO SIGNIFICANT CHANGE FROM PRIOR STUDY. Assessment & Plan - Diagnosis (1) Gastrointestinal bleeding Qualifiers: GI bleed type/associated pathology: unspecified gastrointestinal hemorrhage type Qualified Code(s): K92.2 - Gastrointestinal hemorrhage, unspecified Is this a current diagnosis for this admission?: Yes (2) Anemia due to acute blood loss Is this a current diagnosis for this admission?: Yes (3) End stage chronic obstructive pulmonary disease Is this a current diagnosis for this admission?: Yes (4) Undernutrition syndrome Is this a current diagnosis for this admission?: Yes
[2017-03-06] MEDS ORDERED: NALOXONE HCL INJ/PF 0.4 MG/1 ML SDV ONE (17:17)
[2017-03-06] MEDS ORDERED: FLUMAZENIL INJ 0.5 MG/5 ML VIAL ONE (17:19)
[2017-03-06] MEDS ORDERED: GLUCAGON,HUMAN RECOMB 1 MG INJ ONE (17:19)
[2017-03-06] MEDS ORDERED: EPINEPHRINE INJ 1 MG/10 ML DISP.SYRIN ONE (17:19)
[2017-03-06] MEDS: MIDAZOLAM 2 MG/2 ML INJ ONE ×3 (17:30→18:00)
[2017-03-06] MEDS: FENTANYL CITRATE INJ/PF 100 MCG/2 ML AMPUL ONE ×3 (17:33→18:15)
--- NOTE | 2017-03-06 18:44 | PDOC CONSULTATION ---
Consultation Consult Date: 03/05/17 History of Present Illness Admission Date/PCP: 03/03/17 05:58 History of Present Illness: This is a 76-year-old patient was admitted on 03/03/2017 with generalized weakness shortness of breath and lightheadedness. He had not been feeling well for 3 days prior to being admitted. He has also been seeing black stools off and on for the last 1-2 weeks. On presentation his hemoglobin was 7 though his stool was negative for occult blood. He denies abdominal pain. He takes Pradaxa every day He had an EGD and colonoscopy in May of this year that showed multiple adenomatous polyps and he suffered a post polypectomy bleeding thereafter. He had another colonoscopy on 06/27/2016 with treatment of the post polypectomy ulcer. Past Medical History Cardiac Medical History: Reports: Atrial Fibrillation - paroxysmal, Coronary Artery Disease, Hyperlipidema, Hypertension Denies: Myocardial Infarction Pulmonary Medical History: Reports: Asthma, Bronchitis, Chronic Obstructive Pulmonary Disease (COPD), Pneumonia - september 2011, Respiratory Failure Denies: Tuberculosis Neurological Medical History: Denies: Seizures GI Medical History: Reports: Hiatal Hernia Musculoskeltal Medical History: Reports: Arthritis Psychiatric Medical History: Reports: Depression Hematology: Reports: Anemia - chronic Past Surgical History Past Surgical History: Reports: Pacemaker Social History Lives with: Alone Smoking Status: Former Smoker Frequency of Alcohol Use: None Hx Recreational Drug Use: No - denies Drugs: None Hx Prescription Drug Abuse: No - Advance Directive Resuscitation Status: Full Code Family History Family History: Reviewed & Not Pertinent Parental Family History Reviewed: No Children Family History Reviewed: NA Sibling(s) Family History Reviewed.: NA Medication/Allergy Home Medications: Dabigatran Etexilate Mesylate [Pradaxa 150 mg Capsule] 150 mg PO Q12 11/09/16 Diltiazem HCl [Diltiazem 24Hr ER] 180 mg PO DAILY 11/09/16 Esomeprazole Mag Trihydrate [Nexium] 40 mg PO DAILY 11/09/16 Finasteride [Proscar 5 mg Tablet] 5 mg PO DAILY 11/09/16 Fluticasone/Salmeterol [Advair 250-50 Diskus 28 dose] 1 puff IH Q12 11/09/16 Hydrochlorothiazide 25 mg PO DAILY 11/09/16 Montelukast Sodium [Singulair 10 mg Tablet] 10 mg PO QPM 11/09/16 Sertraline HCl [Zoloft 50 mg Tablet] 50 mg PO DAILY 11/09/16 Simvastatin 40 mg PO QHS 11/09/16 Tamsulosin HCl [Flomax 0.4 mg Cap.sr] 0.8 mg PO QHS 11/09/16 Tiotropium [place] [Spiriva Handihaler 18 mcg/dose (30 Dose)] 1 cap IH DAILY Albuterol Sulfate [Proair Hfa Inhalation Aerosol 8.5 gm Mdi] 2 puff IH Q4HP PRN 03/03/17 Megestrol Acetate 800 mg PO DAILY 03/03/17 Roflumilast [Daliresp 500 mcg Tablet] 500 mcg PO DAILY 03/03/17 Allergies/Adverse Reactions: No Known Allergies Allergy (Verified 06/19/16 15:21) Review of Systems All systems: reviewed and no additional remarkable complaints except as stated Physical Exam Vital Signs: Temp Pulse Resp BP Pulse Ox 97.8 F 122 H 16 130/85 H 96 03/06/17 16:19 03/06/17 18:25 03/06/17 18:25 03/06/17 18:25 03/06/17 18:25 Intake & Output 03/05/17 03/06/17 03/07/17 06:59 06:59 06:59 Intake Total 2800 2583 1150 Output Total 1050 1290 Balance 1750 1293 1150 Weight 56.6 kg Exam: General: Patient is alert and looks well. HEENT: There is pallor. PERRLA. Oropharynx normal Respiratory: Reduced breath sounds bilaterally l Cardiovascular: Heart sounds 1 and 2 normal with no murmurs. Abdominal: Not distended. Soft and nontender. Liver and spleen not palpable. No ascites demonstrated. Bowel sounds active. Rectal examination was deferred. Extremities: No edema Neurological: Alert and oriented x4. Grossly nonfocal. Normal speech Skin: No significant rash Psychological: Normal affect Results Laboratory Results: 03/05/17 13:43 03/05/17 13:43 Impressions: Chest X-Ray 03/03/17 02:45 IMPRESSION: SEVERE EMPHYSEMA. NO ACUTE CARDIOPULMONARY PROCESS. NO SIGNIFICANT CHANGE FROM PRIOR STUDY. Assessment & Plan - Diagnosis (1) Gastrointestinal bleeding Qualifiers: GI bleed type/associated pathology: unspecified gastrointestinal hemorrhage type Qualified Code(s): K92.2 - Gastrointestinal hemorrhage, unspecified Is this a current diagnosis for this admission?: Yes Plan: He presented with melena over the last 1-2 weeks and symptomatic anemia. He also takes Pradaxa every day. He will undergo an EGD and colonoscopy for further evaluation. (2) High risk medication use Is this a current diagnosis for this admission?: Yes (3) Anemia due to acute blood loss Is this a current diagnosis for this admission?: Yes (4) Symptomatic anemia Is this a current diagnosis for this admission?: Yes (5) Chronic atrial fibrillation Is this a current diagnosis for this admission?: Yes
--- NOTE | 2017-03-06 18:50 | Operative Report ---
Operative Report DATE OF SURGERY: 03/06/17 Operative Report: Pre-op diagnosis: GI bleeding Post-op diagnosis: 1. Active bleeding in the third part of duodenum ?AVM vs Dieulafoy's lesion 2. Sigmoid diverticulosis 3. Limited view of the colon Surgery: Upper endoscopy with argon plasma coagulation, and Colonoscopy Medications: Versed 4mg, Fentanyl 1mcg IV push Tissue removed: Procedure: After informed consent obtained from patient, patient's pharynx was sprayed with Hurricane and conscious sedation was achieved. The upper endoscope was then inserted into the esophagus under direct vision and advanced into the stomach and further into the duodenum. Detailed examination of the duodenum, stomach and the esophagus was then performed. A digital rectal examination was performed and this was unremarkable. The colonoscope was inserted into the rectum and advanced to the cecum. The appendiceal orifice and the terminal ileum were both identified. The mucosa was examined into details as the colonoscope was slowly pulled out of the patient. The endoscope was retroflexed in the rectum. Patient tolerated the procedure well. Findings Esophagus: Normal Stomach: Gastric body polyp. No evidence of bleeding Duodenum: Active bleeding was identified in the third part of duodenum with no obvious mucosal abnormality. It was difficult to view this area in detail due to significant peristalsis despite using IV glucagon. Eventually the general area of bleeding was identified and treated with argon. Cecum: Normal Ascending colon: Normal Transverse colon: Limited view Descending colon: Normal Sigmoid colon: A few diverticuli noted. View of the colon was limited Rectum: Limited view Plan: Avoid anticoagulants for many days and continue to follow H&H OPERATION: .
[2017-03-06] MEDS ORDERED: PANTOPRAZOLE SODIUM 40 MG VIAL IV ONE (19:15)
[2017-03-06] MEDS: SIMVASTATIN 40 MG TABLET PO SCH (22:11)
[2017-03-06] MEDS: MONTELUKAST SODIUM 10 MG TABLET PO SCH (22:11)
[2017-03-06] MEDS: NORMAL SALINE 100 ML with PANTOPRAZOLE SODIUM 80 MG IV PRN ×2 (22:11)
[2017-03-06] MEDS: TAMSULOSIN HCL 0.4 MG CAP.SR.24H PO SCH (22:12)
[2017-03-07] MEDS: NORMAL SALINE 100 ML with PANTOPRAZOLE SODIUM 80 MG IV PRN ×2 (07:31)
[2017-03-07] MEDS: SERTRALINE HCL 50 MG TABLET PO SCH (09:31)
[2017-03-07] MEDS: ROFLUMILAST 500 MCG TABLET PO SCH (09:32)
[2017-03-07] MEDS: FINASTERIDE 5 MG TABLET PO SCH (09:32)
[2017-03-07] MEDS: MULTIVIT-STRESS FORMULA/ZINC TABLET PO SCH (09:33)
[2017-03-07] MEDS: TIOTROPIUM BROMIDE DPI 5 CAP/KIT (18 MCG/CAP) IH SCH (09:33)
[2017-03-07] MEDS: FLUTICASONE/SALMETEROL DISKUS 250-50 MCG/DOSE IH SCH ×2 (09:33→23:04)
[2017-03-07] MEDS: DILTIAZEM HCL 180 MG CAPSULE.CR PO SCH (09:34)
[2017-03-07 10:02] LABS: ABSOLUTE EOSINOPHILS # (AUTO) 0.1 10^3/uL (0.0-0.6); ABSOLUTE LYMPHOCYTES (AUTO) 0.4 10^3/uL (0.5-4.7); ABSOLUTE MONOCYTES (AUTO) 0.3 10^3/uL (0.1-1.4); ABSOLUTE NEUT (AUTO) 4.7 10^3/uL (1.7-8.2); BASOPHILS % (AUTO) 0.3 % (0-2); HEMATOCRIT 24.1 % (37.9-51.0); HEMOGLOBIN 8.3 g/dL (13.5-17.0); HGB HCT DIFFERENCE 0.8; LYMPHOCYTES % (AUTO) 8.2 % (13-45); MEAN CORPUSCULAR HGB CONC 34.3 g/dL (32.0-36.0); MEAN CORPUSCULAR VOLUME 93 fl (80-97); MONOCYTES % (AUTO) 5.2 % (3-13); RED BLOOD COUNT 2.58 10^6/uL (4.35-5.55); SEGMENTED NEUTROPHILS % (AUTO) 85.3 % (42-78); WHITE BLOOD COUNT 5.5 10^3/uL (4.0-10.5)
[2017-03-07 10:23] LABS: ALANINE AMINOTRANSFERASE 29 U/L (21-72); ALBUMIN 2.2 g/dL (3.5-5.0); ALKALINE PHOSPHATASE 36 U/L (38-126); ASPARTATE AMINO TRANSFERASE 16 U/L (17-59); BILIRUBIN,DIRECT 0.3 mg/dL (0.0-0.4); BILIRUBIN,TOTAL 0.6 mg/dL (0.2-1.3); BLOOD UREA NITROGEN 10 mg/dL (7-20); CALCIUM 8.6 mg/dL (8.4-10.2); CARBON DIOXIDE 33 mmol/L (22-30); CREATININE RESULT 0.59 mg/dL (0.52-1.25); GLUCOSE 162 mg/dL (75-110); POTASSIUM 3.4 mmol/L (3.6-5.0)
[2017-03-07 10:31] LABS: ANION GAP 5 (5-19); CHLORIDE 102 mmol/L (98-107); SODIUM 139.6 mmol/L (137-145)
[2017-03-07] MEDS ORDERED: POTASSI CL 20 MEQ/50 ML RIDER 20 MEQ/50 ML RTUPB IV ONE (14:00)
--- NOTE | 2017-03-07 18:13 | PDOC PROGRESS REPORT ---
Subjective Progress Note for:: 03/07/17 Subjective:: He was seen by the bedside, yesterday he had EGD and colonoscopy he was found to have active bleeding in the top part of duodenum with no obvious mucosa pathology. Physical Exam Vital Signs: Temp Pulse Resp BP Pulse Ox 98.5 F 94 12 109/59 L 98 03/07/17 15:30 03/07/17 15:30 03/07/17 15:30 03/07/17 15:30 03/07/17 15:30 Intake & Output 03/06/17 03/07/17 03/08/17 06:59 06:59 06:59 Intake Total 2583 2070 1977 Output Total 1290 600 925 Balance 1293 1470 1052 Weight 56.6 kg 56.4 kg General appearance: PRESENT: no acute distress Eye exam: PRESENT: PERRLA Respiratory exam: PRESENT: clear to auscultation usman Cardiovascular exam: PRESENT: +S1, +S2 GI/Abdominal exam: PRESENT: soft Results Laboratory Results: 03/07/17 09:27 03/07/17 09:27 03/07/17 03/07/17 09:27 09:27 WBC 5.5 RBC 2.58 L Hgb 8.3 L Hct 24.1 L MCV 93 MCH 32.0 MCHC 34.3 RDW 16.0 H Plt Count 169 Seg Neutrophils % 85.3 H Lymphocytes % 8.2 L Monocytes % 5.2 Eosinophils % 1.0 Basophils % 0.3 Absolute Neutrophils 4.7 Absolute Lymphocytes 0.4 L Absolute Monocytes 0.3 Absolute Eosinophils 0.1 Absolute Basophils 0.0 Sodium 139.6 Potassium 3.4 L Chloride 102 Carbon Dioxide 33 H Anion Gap 5 BUN 10 Creatinine 0.59 Est GFR ( Amer) > 60 Est GFR (Non-Af Amer) > 60 Glucose 162 H Calcium 8.6 Total Bilirubin 0.6 AST 16 L ALT 29 Alkaline Phosphatase 36 L Total Protein 4.0 L Albumin 2.2 L Impressions: Chest X-Ray 03/03/17 02:45 IMPRESSION: SEVERE EMPHYSEMA. NO ACUTE CARDIOPULMONARY PROCESS. NO SIGNIFICANT CHANGE FROM PRIOR STUDY. Assessment & Plan - Diagnosis (1) Gastrointestinal bleeding Qualifiers: GI bleed type/associated pathology: unspecified gastrointestinal hemorrhage type Qualified Code(s): K92.2 - Gastrointestinal hemorrhage, unspecified Is this a current diagnosis for this admission?: Yes (2) Anemia due to acute blood loss Is this a current diagnosis for this admission?: Yes (3) End stage chronic obstructive pulmonary disease Is this a current diagnosis for this admission?: Yes (4) Undernutrition syndrome Is this a current diagnosis for this admission?: Yes (5) Dieulafoy lesion of duodenum Is this a current diagnosis for this admission?: Yes (6) Upper gastrointestinal bleeding Is this a current diagnosis for this admission?: Yes (7) Weight loss Is this a current diagnosis for this admission?: Yes Plan: HIV screening test ordered
[2017-03-07] MEDS: MONTELUKAST SODIUM 10 MG TABLET PO SCH (18:32)
[2017-03-07 19:18] LABS: ADD HIVPANEL? NO; HIV (1 AND 2) ANTIBODY NEGATIVE (NEGATIVE)
[2017-03-07] MEDS: TAMSULOSIN HCL 0.4 MG CAP.SR.24H PO SCH (23:03)
[2017-03-07] MEDS: SIMVASTATIN 40 MG TABLET PO SCH (23:04)
[2017-03-08] MEDS: NORMAL SALINE 1000 ML 1,000 ML IV PRN (01:19)
[2017-03-08 05:48] LABS: ABSOLUTE EOSINOPHILS # (AUTO) 0.1 10^3/uL (0.0-0.6); ABSOLUTE LYMPHOCYTES (AUTO) 0.7 10^3/uL (0.5-4.7); ABSOLUTE MONOCYTES (AUTO) 0.3 10^3/uL (0.1-1.4); ABSOLUTE NEUT (AUTO) 3.3 10^3/uL (1.7-8.2); BASOPHILS % (AUTO) 0.5 % (0-2); EOSINOPHILS % (AUTO) 1.5 % (0-6); HEMATOCRIT 22.1 % (37.9-51.0); HGB HCT DIFFERENCE 0.4; LYMPHOCYTES % (AUTO) 15.5 % (13-45); MEAN CORPUSCULAR HEMOGLOBIN 31.6 pg (27.0-33.4); MEAN CORPUSCULAR HGB CONC 33.9 g/dL (32.0-36.0); MEAN CORPUSCULAR VOLUME 93 fl (80-97); MONOCYTES % (AUTO) 6.6 % (3-13); RED BLOOD COUNT 2.37 10^6/uL (4.35-5.55); RED CELL DISTRIBUTION WIDTH 16.4 % (11.5-14.0); SEGMENTED NEUTROPHILS % (AUTO) 75.9 % (42-78); WHITE BLOOD COUNT 4.4 10^3/uL (4.0-10.5)
[2017-03-08 06:04] LABS: HEMOGLOBIN 7.5 g/dL (13.5-17.0)
[2017-03-08 06:51] LABS: ALANINE AMINOTRANSFERASE 26 U/L (21-72); ALBUMIN 2.1 g/dL (3.5-5.0); ALKALINE PHOSPHATASE 37 U/L (38-126); ANION GAP 6 (5-19); ASPARTATE AMINO TRANSFERASE 15 U/L (17-59); BILIRUBIN,DIRECT 0.2 mg/dL (0.0-0.4); BILIRUBIN,TOTAL 0.5 mg/dL (0.2-1.3); BLOOD UREA NITROGEN 6 mg/dL (7-20); CALCIUM 8.4 mg/dL (8.4-10.2); CARBON DIOXIDE 31 mmol/L (22-30); CHLORIDE 104 mmol/L (98-107); CREATININE RESULT 0.59 mg/dL (0.52-1.25); GLUCOSE 70 mg/dL (75-110); POTASSIUM 3.6 mmol/L (3.6-5.0); SODIUM 140.8 mmol/L (137-145); TOTAL PROTEIN 3.8 g/dL (6.3-8.2)
[2017-03-08] MEDS: DILTIAZEM HCL 180 MG CAPSULE.CR PO SCH (10:37)
[2017-03-08] MEDS: MULTIVIT-STRESS FORMULA/ZINC TABLET PO SCH (10:37)
[2017-03-08] MEDS: FLUTICASONE/SALMETEROL DISKUS 250-50 MCG/DOSE IH SCH ×2 (10:38→21:43)
[2017-03-08] MEDS: FINASTERIDE 5 MG TABLET PO SCH (10:38)
[2017-03-08] MEDS: TIOTROPIUM BROMIDE DPI 5 CAP/KIT (18 MCG/CAP) IH SCH (10:38)
[2017-03-08] MEDS: SERTRALINE HCL 50 MG TABLET PO SCH (10:38)
[2017-03-08] MEDS: ROFLUMILAST 500 MCG TABLET PO SCH (10:38)
[2017-03-08] MEDS: MONTELUKAST SODIUM 10 MG TABLET PO SCH (17:44)
--- NOTE | 2017-03-08 19:19 | PDOC PROGRESS REPORT ---
Subjective Progress Note for:: 03/08/17 Subjective:: The hemoglobin is low today again he required blood transfusion Physical Exam Vital Signs: Temp Pulse Resp BP Pulse Ox 97.3 F 83 22 H 110/51 L 98 03/08/17 18:23 03/08/17 18:23 03/08/17 18:23 03/08/17 18:23 03/08/17 18:23 Intake & Output 03/07/17 03/08/17 03/09/17 06:59 06:59 06:59 Intake Total 2070 2477 2477 Output Total 600 1775 800 Balance 6251 290 8024 Weight 56.4 kg General appearance: PRESENT: no acute distress Eye exam: PRESENT: PERRLA Respiratory exam: PRESENT: clear to auscultation usman Cardiovascular exam: PRESENT: +S1, +S2 GI/Abdominal exam: PRESENT: soft Neurological exam: PRESENT: alert Results Laboratory Results: 03/08/17 04:10 03/08/17 04:10 03/08/17 03/08/17 03/08/17 04:10 04:10 13:40 WBC 4.4 RBC 2.37 L Hgb 7.5 L Hct 22.1 L MCV 93 MCH 31.6 MCHC 33.9 RDW 16.4 H Plt Count 159 Seg Neutrophils % 75.9 Lymphocytes % 15.5 Monocytes % 6.6 Eosinophils % 1.5 Basophils % 0.5 Absolute Neutrophils 3.3 Absolute Lymphocytes 0.7 Absolute Monocytes 0.3 Absolute Eosinophils 0.1 Absolute Basophils 0.0 Sodium 140.8 Potassium 3.6 Chloride 104 Carbon Dioxide 31 H Anion Gap 6 BUN 6 L Creatinine 0.59 Est GFR ( Amer) > 60 Est GFR (Non-Af Amer) > 60 Glucose 70 L Calcium 8.4 Total Bilirubin 0.5 AST 15 L ALT 26 Alkaline Phosphatase 37 L Total Protein 3.8 L Albumin 2.1 L Blood Type O POSITIVE Antibody Screen NEGATIVE Impressions: Chest X-Ray 03/03/17 02:45 IMPRESSION: SEVERE EMPHYSEMA. NO ACUTE CARDIOPULMONARY PROCESS. NO SIGNIFICANT CHANGE FROM PRIOR STUDY. Assessment & Plan - Diagnosis (1) Gastrointestinal bleeding Qualifiers: GI bleed type/associated pathology: unspecified gastrointestinal hemorrhage type Qualified Code(s): K92.2 - Gastrointestinal hemorrhage, unspecified Is this a current diagnosis for this admission?: Yes (2) Anemia due to acute blood loss Is this a current diagnosis for this admission?: Yes (3) End stage chronic obstructive pulmonary disease Is this a current diagnosis for this admission?: Yes (4) Undernutrition syndrome Is this a current diagnosis for this admission?: Yes (5) Dieulafoy lesion of duodenum Is this a current diagnosis for this admission?: Yes (6) Upper gastrointestinal bleeding Is this a current diagnosis for this admission?: Yes (7) Weight loss Is this a current diagnosis for this admission?: Yes
[2017-03-08] MEDS: TAMSULOSIN HCL 0.4 MG CAP.SR.24H PO SCH (21:43)
[2017-03-08] MEDS: SIMVASTATIN 40 MG TABLET PO SCH (21:43)
[2017-03-09] MEDS: NORMAL SALINE 1000 ML 1,000 ML IV PRN ×2 (04:52→23:40)
[2017-03-09 08:14] LABS: ABSOLUTE EOSINOPHILS # (AUTO) 0.1 10^3/uL (0.0-0.6); ABSOLUTE LYMPHOCYTES (AUTO) 0.5 10^3/uL (0.5-4.7); ABSOLUTE MONOCYTES (AUTO) 0.2 10^3/uL (0.1-1.4); ABSOLUTE NEUT (AUTO) 2.9 10^3/uL (1.7-8.2); BASOPHILS % (AUTO) 0.4 % (0-2); EOSINOPHILS % (AUTO) 1.6 % (0-6); HEMATOCRIT 25.3 % (37.9-51.0); HEMOGLOBIN 8.5 g/dL (13.5-17.0); HGB HCT DIFFERENCE 0.2; LYMPHOCYTES % (AUTO) 13.8 % (13-45); MEAN CORPUSCULAR HEMOGLOBIN 31.4 pg (27.0-33.4); MEAN CORPUSCULAR HGB CONC 33.7 g/dL (32.0-36.0); MEAN CORPUSCULAR VOLUME 93 fl (80-97); MONOCYTES % (AUTO) 6.1 % (3-13); RED BLOOD COUNT 2.72 10^6/uL (4.35-5.55); SEGMENTED NEUTROPHILS % (AUTO) 78.1 % (42-78); WHITE BLOOD COUNT 3.7 10^3/uL (4.0-10.5)
[2017-03-09] MEDS: SERTRALINE HCL 50 MG TABLET PO SCH (10:37)
[2017-03-09] MEDS: ROFLUMILAST 500 MCG TABLET PO SCH (10:38)
[2017-03-09] MEDS: MULTIVIT-STRESS FORMULA/ZINC TABLET PO SCH (10:38)
[2017-03-09] MEDS: FLUTICASONE/SALMETEROL DISKUS 250-50 MCG/DOSE IH SCH ×2 (10:38→23:10)
[2017-03-09] MEDS: FINASTERIDE 5 MG TABLET PO SCH (10:39)
[2017-03-09] MEDS: DILTIAZEM HCL 180 MG CAPSULE.CR PO SCH (10:39)
[2017-03-09] MEDS: TIOTROPIUM BROMIDE DPI 5 CAP/KIT (18 MCG/CAP) IH SCH (12:11)
--- NOTE | 2017-03-09 14:23 | PDOC PROGRESS REPORT ---
Subjective Progress Note for:: 03/09/17 Subjective:: Patient is back on regular diet so far tolerating regular diet without any complications, no more bloody stools. Was transfused with packed red blood cells yesterday Physical Exam Vital Signs: Temp Pulse Resp BP Pulse Ox 99.3 F 89 20 104/57 L 100 03/09/17 11:54 03/09/17 11:54 03/09/17 11:54 03/09/17 11:54 03/09/17 11:54 Intake & Output 03/08/17 03/09/17 03/10/17 06:59 06:59 06:59 Intake Total 2477 2977 Output Total 1775 1425 Balance 702 1552 General appearance: PRESENT: no acute distress Eye exam: PRESENT: PERRLA Respiratory exam: PRESENT: clear to auscultation usman Cardiovascular exam: PRESENT: +S1, +S2 GI/Abdominal exam: PRESENT: soft Neurological exam: PRESENT: alert Results Laboratory Results: 03/09/17 07:35 03/08/17 04:10 03/08/17 03/09/17 13:40 07:35 WBC 3.7 L RBC 2.72 L Hgb 8.5 L Hct 25.3 L MCV 93 MCH 31.4 MCHC 33.7 RDW 16.0 H Plt Count 150 Seg Neutrophils % 78.1 H Lymphocytes % 13.8 Monocytes % 6.1 Eosinophils % 1.6 Basophils % 0.4 Absolute Neutrophils 2.9 Absolute Lymphocytes 0.5 Absolute Monocytes 0.2 Absolute Eosinophils 0.1 Absolute Basophils 0.0 Blood Type O POSITIVE Antibody Screen NEGATIVE Impressions: Chest X-Ray 03/03/17 02:45 IMPRESSION: SEVERE EMPHYSEMA. NO ACUTE CARDIOPULMONARY PROCESS. NO SIGNIFICANT CHANGE FROM PRIOR STUDY. Assessment & Plan - Diagnosis (1) Gastrointestinal bleeding Qualifiers: GI bleed type/associated pathology: unspecified gastrointestinal hemorrhage type Qualified Code(s): K92.2 - Gastrointestinal hemorrhage, unspecified Is this a current diagnosis for this admission?: Yes (2) Anemia due to acute blood loss Is this a current diagnosis for this admission?: Yes (3) End stage chronic obstructive pulmonary disease Is this a current diagnosis for this admission?: Yes (4) Undernutrition syndrome Is this a current diagnosis for this admission?: Yes (5) Dieulafoy lesion of duodenum Is this a current diagnosis for this admission?: Yes (6) Upper gastrointestinal bleeding Is this a current diagnosis for this admission?: Yes (7) Weight loss Is this a current diagnosis for this admission?: Yes
[2017-03-09] MEDS: MONTELUKAST SODIUM 10 MG TABLET PO SCH (17:39)
[2017-03-09] MEDS ORDERED: NORMAL SALINE 100 ML with PANTOPRAZOLE SODIUM 80 MG IV PRN ×2 (19:08)
[2017-03-09] MEDS: TAMSULOSIN HCL 0.4 MG CAP.SR.24H PO SCH (23:10)
[2017-03-09] MEDS: SIMVASTATIN 40 MG TABLET PO SCH (23:10)
[2017-03-09] MEDS ORDERED: PANTOPRAZOLE SODIUM 40 MG VIAL IV ONE (23:59)
[2017-03-10 08:30] LABS: HEMATOCRIT 27.5 % (37.9-51.0); HEMOGLOBIN 9.3 g/dL (13.5-17.0); HGB HCT DIFFERENCE 0.4; MEAN CORPUSCULAR HEMOGLOBIN 31.8 pg (27.0-33.4); MEAN CORPUSCULAR HGB CONC 33.9 g/dL (32.0-36.0); MEAN CORPUSCULAR VOLUME 94 fl (80-97); RED BLOOD COUNT 2.94 10^6/uL (4.35-5.55); RED CELL DISTRIBUTION WIDTH 15.8 % (11.5-14.0); WHITE BLOOD COUNT 6.6 10^3/uL (4.0-10.5)
[2017-03-10] MEDS: NORMAL SALINE 100 ML with PANTOPRAZOLE SODIUM 80 MG IV PRN ×4 (10:46→23:31)
[2017-03-10] MEDS: ROFLUMILAST 500 MCG TABLET PO SCH (10:47)
[2017-03-10] MEDS: TIOTROPIUM BROMIDE DPI 5 CAP/KIT (18 MCG/CAP) IH SCH (10:47)
[2017-03-10] MEDS: FLUTICASONE/SALMETEROL DISKUS 250-50 MCG/DOSE IH SCH ×2 (10:47→21:27)
[2017-03-10] MEDS: MULTIVIT-STRESS FORMULA/ZINC TABLET PO SCH (10:48)
[2017-03-10] MEDS: FINASTERIDE 5 MG TABLET PO SCH (10:48)
[2017-03-10] MEDS: DILTIAZEM HCL 180 MG CAPSULE.CR PO SCH (10:49)
[2017-03-10] MEDS: SERTRALINE HCL 50 MG TABLET PO SCH (10:49)
[2017-03-10] MEDS: NORMAL SALINE 1000 ML 1,000 ML IV PRN ×2 (10:55→23:31)
--- NOTE | 2017-03-10 14:35 | PDOC PROGRESS REPORT ---
Subjective Progress Note for:: 03/10/17 Subjective:: Patient is seen by the bedside, the food was advanced yesterday to regular diet Physical Exam Vital Signs: Temp Pulse Resp BP Pulse Ox 98.4 F 101 H 22 H 118/66 99 03/10/17 11:48 03/10/17 11:48 03/10/17 11:48 03/10/17 11:48 03/10/17 11:48 Intake & Output 03/09/17 03/10/17 03/11/17 06:59 06:59 06:59 Intake Total 2977 1750 Output Total 1425 780 Balance 1552 970 General appearance: PRESENT: no acute distress Head exam: PRESENT: atraumatic Eye exam: PRESENT: PERRLA Neck exam: PRESENT: full ROM Respiratory exam: PRESENT: clear to auscultation usman Cardiovascular exam: PRESENT: RRR, +S1, +S2 Vascular exam: PRESENT: normal capillary refill GI/Abdominal exam: PRESENT: normal bowel sounds, soft Rectal exam: PRESENT: deferred Neurological exam: PRESENT: alert Skin exam: PRESENT: dry, intact, warm Results Laboratory Results: 03/10/17 08:24 03/08/17 04:10 03/10/17 08:24 WBC 6.6 RBC 2.94 L Hgb 9.3 L Hct 27.5 L MCV 94 MCH 31.8 MCHC 33.9 RDW 15.8 H Plt Count 165 Impressions: Chest X-Ray 03/03/17 02:45 IMPRESSION: SEVERE EMPHYSEMA. NO ACUTE CARDIOPULMONARY PROCESS. NO SIGNIFICANT CHANGE FROM PRIOR STUDY. Assessment & Plan - Diagnosis (1) Gastrointestinal bleeding Qualifiers: GI bleed type/associated pathology: unspecified gastrointestinal hemorrhage type Qualified Code(s): K92.2 - Gastrointestinal hemorrhage, unspecified Is this a current diagnosis for this admission?: Yes (2) Anemia due to acute blood loss Is this a current diagnosis for this admission?: Yes (3) End stage chronic obstructive pulmonary disease Is this a current diagnosis for this admission?: Yes (4) Undernutrition syndrome Is this a current diagnosis for this admission?: Yes (5) Dieulafoy lesion of duodenum Is this a current diagnosis for this admission?: Yes (6) Upper gastrointestinal bleeding Is this a current diagnosis for this admission?: Yes (7) Weight loss Is this a current diagnosis for this admission?: Yes
[2017-03-10] MEDS: MONTELUKAST SODIUM 10 MG TABLET PO SCH (17:32)
[2017-03-10] MEDS: SIMVASTATIN 40 MG TABLET PO SCH (21:27)
[2017-03-10] MEDS: TAMSULOSIN HCL 0.4 MG CAP.SR.24H PO SCH (21:27)
[2017-03-11] MEDS: SERTRALINE HCL 50 MG TABLET PO SCH (10:18)
[2017-03-11] MEDS: TIOTROPIUM BROMIDE DPI 5 CAP/KIT (18 MCG/CAP) IH SCH (10:18)
[2017-03-11] MEDS: FINASTERIDE 5 MG TABLET PO SCH (10:19)
[2017-03-11] MEDS: MULTIVIT-STRESS FORMULA/ZINC TABLET PO SCH (10:19)
[2017-03-11] MEDS: DILTIAZEM HCL 180 MG CAPSULE.CR PO SCH (10:19)
[2017-03-11] MEDS: FLUTICASONE/SALMETEROL DISKUS 250-50 MCG/DOSE IH SCH ×2 (10:20→22:24)
[2017-03-11] MEDS: ROFLUMILAST 500 MCG TABLET PO SCH (10:20)
[2017-03-11] MEDS: NORMAL SALINE 100 ML with PANTOPRAZOLE SODIUM 80 MG IV PRN ×4 (10:22→20:39)
[2017-03-11] MEDS: NORMAL SALINE 1000 ML 1,000 ML IV PRN ×2 (10:23→20:39)
[2017-03-11] MEDS: MONTELUKAST SODIUM 10 MG TABLET PO SCH (17:35)
--- NOTE | 2017-03-11 18:19 | PDOC PROGRESS REPORT ---
Subjective Progress Note for:: 03/11/17 Subjective:: Patient was seen by the bedside, he said does not feel well, he has severe COPD , CT chest was done without contrast, it showed severe bullous emphysema particularly in the upper lobes. There are bilateral pleural effusions left more than right with basilar compressive atelectasis, also found was abdominal ascites. Physical Exam Vital Signs: Temp Pulse Resp BP Pulse Ox 98.7 F 91 24 H 135/67 H 99 03/11/17 15:19 03/11/17 15:19 03/11/17 15:19 03/11/17 15:19 03/11/17 15:19 Intake & Output 03/10/17 03/11/17 03/12/17 06:59 06:59 06:59 Intake Total 1750 3010 2258 Output Total 780 790 520 Balance 970 2220 1738 General appearance: PRESENT: severe distress, thin Eye exam: PRESENT: PERRLA Respiratory exam: PRESENT: decreased breath sounds Cardiovascular exam: PRESENT: +S1, +S2 GI/Abdominal exam: PRESENT: soft Extremities exam: PRESENT: other - Bilateral leg edema Neurological exam: PRESENT: alert, CN II-XII grossly intact Results Laboratory Results: 03/10/17 08:24 03/08/17 04:10 Impressions: Chest X-Ray 03/03/17 02:45 IMPRESSION: SEVERE EMPHYSEMA. NO ACUTE CARDIOPULMONARY PROCESS. NO SIGNIFICANT CHANGE FROM PRIOR STUDY. Assessment & Plan - Diagnosis (1) Gastrointestinal bleeding Qualifiers: GI bleed type/associated pathology: unspecified gastrointestinal hemorrhage type Qualified Code(s): K92.2 - Gastrointestinal hemorrhage, unspecified Is this a current diagnosis for this admission?: Yes (2) Anemia due to acute blood loss Is this a current diagnosis for this admission?: Yes (3) End stage chronic obstructive pulmonary disease Is this a current diagnosis for this admission?: Yes (4) Undernutrition syndrome Is this a current diagnosis for this admission?: Yes (5) Dieulafoy lesion of duodenum Is this a current diagnosis for this admission?: Yes (6) Upper gastrointestinal bleeding Is this a current diagnosis for this admission?: Yes (7) Weight loss Is this a current diagnosis for this admission?: Yes (8) Pleural effusion, bilateral Is this a current diagnosis for this admission?: Yes Plan: Thoracentesis is scheduled for the morning, patient to be transferred to intermediate care unit (9) Bullous emphysema Is this a current diagnosis for this admission?: Yes (10) Hypoalbuminemia Is this a current diagnosis for this admission?: Yes Plan: The hypoalbuminemia is most likely from undernutrition, there is no proteinuria to suggest kidney loss of albumin, the liver function is normal so the most likely explanation is inadequate GI intake hypoalbuminemia is an independent predictor of mortality (11) Anasarca Is this a current diagnosis for this admission?: Yes Plan: Start furosemide infusion
[2017-03-11 18:43] LABS: ARTERIAL BLOOD BASE EXCESS 5.9 mmol/L; ARTERIAL BLOOD O2 SATURATION 97.2 % (94-98)
--- NOTE | 2017-03-11 19:09 | RADIOLOGY REPORT (SQ) ---
EXAM DESCRIPTION: CT CHEST WITHOUT COMPLETED DATE/TIME: 03/11/2017 6:56 pm REASON FOR STUDY: copd COMPARISON: Chest radiograph 03/03/2017 TECHNIQUE: CT scan performed of the chest without intravenous contrast. Images reviewed with lung, soft tissue and bone windows. Reconstructed coronal and sagittal MPR images reviewed. All images st ored on PACS. All CT scanners at this facility use dose modulation, iterative reconstruction, and/or weight based d osing when appropriate to reduce radiation dose to as low as reasonably achievable (ALARA). [facility]: Dose Right [facility]: CareDose [facility]: Dose Right [facility]: Teradose 4D [facility]: [employer] Technologies RADIATION DOSE: Up-to-date CT equipment and radiation dose reduction techniques were employed. CTDIv ol: 11.2 mGy. DLP: 504 mGy-cm. mGy. LIMITATIONS: No technical limitations. FINDINGS: LUNGS AND PLEURA: Severe bullous emphysema particularly in the upper lobes. There are usman ateral pleural effusions left greater than right with basilar compressive atelectasis. No pneumothor ax. HILAR AND MEDIASTINAL STRUCTURES: No identified masses or abnormal nodes. No obvious aneurysm. HEART AND VASCULAR STRUCTURES: No aneurysm. Small pericardial effusion. UPPER ABDOMEN: Ascites. THYROID AND OTHER SOFT TISSUES: No masses. No adenopathy. BONES: No significant finding. HARDWARE: None in the chest. OTHER: No other significant findings. IMPRESSION: Severe emphysema. Bilateral pleural effusions left greater than right. Small pericardial effusion. Abdominal ascites. TECHNICAL DOCUMENTATION: JOB ID: [id number] Quality ID # [id number]: Final reports with documentation of one or more dose reduction techniques (e.g., Au tomated exposure control, adjustment of the mA and/or kV according to patient size, use of iterative reconstruction technique) 2010 [employer]- All Rights Reserved
[2017-03-11 19:14] LABS: ABSOLUTE EOSINOPHILS # (AUTO) 0.1 10^3/uL (0.0-0.6); ABSOLUTE LYMPHOCYTES (AUTO) 0.6 10^3/uL (0.5-4.7); ABSOLUTE MONOCYTES (AUTO) 0.2 10^3/uL (0.1-1.4); ABSOLUTE NEUT (AUTO) 3.9 10^3/uL (1.7-8.2); BASOPHILS % (AUTO) 0.5 % (0-2); EOSINOPHILS % (AUTO) 1.5 % (0-6); HEMATOCRIT 29.6 % (37.9-51.0); HEMOGLOBIN 10.2 g/dL (13.5-17.0); LYMPHOCYTES % (AUTO) 12.9 % (13-45); MEAN CORPUSCULAR HEMOGLOBIN 31.7 pg (27.0-33.4); MEAN CORPUSCULAR HGB CONC 34.3 g/dL (32.0-36.0); MEAN CORPUSCULAR VOLUME 92 fl (80-97); MONOCYTES % (AUTO) 4.3 % (3-13); RED BLOOD COUNT 3.21 10^6/uL (4.35-5.55); RED CELL DISTRIBUTION WIDTH 15.3 % (11.5-14.0); SEGMENTED NEUTROPHILS % (AUTO) 80.8 % (42-78); WHITE BLOOD COUNT 4.8 10^3/uL (4.0-10.5)
[2017-03-11 19:35] LABS: ALANINE AMINOTRANSFERASE 23 U/L (21-72); ALBUMIN 2.6 g/dL (3.5-5.0); ALKALINE PHOSPHATASE 51 U/L (38-126); ANION GAP 7 (5-19); ASPARTATE AMINO TRANSFERASE 18 U/L (17-59); BILIRUBIN,DIRECT 0.4 mg/dL (0.0-0.4); BLOOD UREA NITROGEN 4 mg/dL (7-20); CALCIUM 8.6 mg/dL (8.4-10.2); CARBON DIOXIDE 31 mmol/L (22-30); CHLORIDE 104 mmol/L (98-107); CREATININE RESULT 0.64 mg/dL (0.52-1.25); GLUCOSE 72 mg/dL (75-110); POTASSIUM 3.5 mmol/L (3.6-5.0); SODIUM 142.3 mmol/L (137-145); TOTAL PROTEIN 4.3 g/dL (6.3-8.2)
[2017-03-11] MEDS ORDERED: FUROSEMIDE INJ/PF 40 MG/4 ML SDV IV ONE (21:45)
[2017-03-11 22:04] LABS: PARTIAL THROMBOPLASTIN TIME 30.5 SEC (23.5-35.8); PROTHROMBIN TIME 14.2 SEC (11.4-15.4)
[2017-03-11] MEDS: TAMSULOSIN HCL 0.4 MG CAP.SR.24H PO SCH (22:24)
[2017-03-11] MEDS: SIMVASTATIN 40 MG TABLET PO SCH (22:24)
[2017-03-11 22:35] LABS: CREATINE KINASE MB 0.57 ng/mL (<4.55)
[2017-03-11 22:36] LABS: TROPONIN I < 0.012 ng/mL
[2017-03-12] MEDS: LEVOFLOXACIN 750 MG/D5W RTU 750 MG/150 ML RTUPB IV SCH ×2 (00:43→22:22)
[2017-03-12 06:16] LABS: ABSOLUTE LYMPHOCYTES (AUTO) 0.4 10^3/uL (0.5-4.7); ABSOLUTE MONOCYTES (AUTO) 0.2 10^3/uL (0.1-1.4); ABSOLUTE NEUT (AUTO) 4.8 10^3/uL (1.7-8.2); BASOPHILS % (AUTO) 0.4 % (0-2); EOSINOPHILS % (AUTO) 0.8 % (0-6); HEMATOCRIT 28.9 % (37.9-51.0); HEMOGLOBIN 9.9 g/dL (13.5-17.0); HGB HCT DIFFERENCE 0.8; LYMPHOCYTES % (AUTO) 7.4 % (13-45); MEAN CORPUSCULAR HEMOGLOBIN 31.9 pg (27.0-33.4); MEAN CORPUSCULAR HGB CONC 34.4 g/dL (32.0-36.0); MEAN CORPUSCULAR VOLUME 93 fl (80-97); MONOCYTES % (AUTO) 4.5 % (3-13); RED BLOOD COUNT 3.12 10^6/uL (4.35-5.55); RED CELL DISTRIBUTION WIDTH 15.1 % (11.5-14.0); SEGMENTED NEUTROPHILS % (AUTO) 86.9 % (42-78); WHITE BLOOD COUNT 5.5 10^3/uL (4.0-10.5)
[2017-03-12 07:10] LABS: TROPONIN I < 0.012 ng/mL
[2017-03-12 07:32] LABS: ALANINE AMINOTRANSFERASE 26 U/L (21-72); ALBUMIN 2.6 g/dL (3.5-5.0); ALKALINE PHOSPHATASE 48 U/L (38-126); ANION GAP 6 (5-19); ASPARTATE AMINO TRANSFERASE 31 U/L (17-59); BILIRUBIN,DIRECT 0.4 mg/dL (0.0-0.4); BILIRUBIN,TOTAL 0.8 mg/dL (0.2-1.3); BLOOD UREA NITROGEN 4 mg/dL (7-20); CALCIUM 8.5 mg/dL (8.4-10.2); CARBON DIOXIDE 37 mmol/L (22-30); CHLORIDE 101 mmol/L (98-107); CREATINE KINASE 27 U/L (55-170); CREATININE RESULT 0.61 mg/dL (0.52-1.25); GLUCOSE 82 mg/dL (75-110); LDH 329 U/L (313-618); POTASSIUM 3.3 mmol/L (3.6-5.0); SODIUM 144.1 mmol/L (137-145); TOTAL PROTEIN 4.7 g/dL (6.3-8.2)
[2017-03-12] MEDS: NORMAL SALINE 100 ML with PANTOPRAZOLE SODIUM 80 MG IV PRN ×2 (08:47)
[2017-03-12] MEDS: MULTIVIT-STRESS FORMULA/ZINC TABLET PO SCH (09:01)
[2017-03-12] MEDS: DILTIAZEM HCL 180 MG CAPSULE.CR PO SCH (09:01)
[2017-03-12] MEDS: SERTRALINE HCL 50 MG TABLET PO SCH (09:01)
[2017-03-12] MEDS: FUROSEMIDE INJ/PF 40 MG/4 ML SDV IV SCH (09:02)
[2017-03-12] MEDS: FINASTERIDE 5 MG TABLET PO SCH (09:02)
[2017-03-12] MEDS: ROFLUMILAST 500 MCG TABLET PO SCH (09:02)
[2017-03-12] MEDS: TIOTROPIUM BROMIDE DPI 5 CAP/KIT (18 MCG/CAP) IH SCH (09:04)
[2017-03-12] MEDS ORDERED: FUROSEMIDE INJ/PF 40 MG/4 ML SDV IV SCH (10:00)
[2017-03-12] MEDS: FLUTICASONE/SALMETEROL DISKUS 250-50 MCG/DOSE IH SCH ×2 (11:27→22:22)
--- NOTE | 2017-03-12 11:41 | RADIOLOGY REPORT (SQ) ---
EXAM DESCRIPTION: CT ABD/PELVIS NO ORAL OR IV COMPLETED DATE/TIME: 03/12/2017 10:19 am REASON FOR STUDY: Ascites r/o intraperitoneal pathology COMPARISON: 10/03/2013 TECHNIQUE: CT scan of the abdomen and pelvis performed without intravenous or oral contrast. Images reviewed with lung, soft tissue, and bone windows. Reconstructed coronal and sagittal MPR images revi ewed. All images stored on PACS. All CT scanners at this facility use dose modulation, iterative reconstruction, and/or weight based d osing when appropriate to reduce radiation dose to as low as reasonably achievable (ALARA). [facility]: Dose Right [facility]: CareDose [facility]: Dose Right [facility]: Teradose 4D [facility]: [employer] RADIATION DOSE: Up-to-date CT equipment and radiation dose reduction techniques were employed. CTDIv ol: 3.6 mGy. DLP: 184 mGy-cm.mGy. LIMITATIONS: None. FINDINGS: LOWER CHEST: Bilateral pleural effusions, left more than right. Reduced volume in the lef t hemithorax with shift of mediastinal structures to the left. Centrilobular emphysematous changes. NON-CONTRASTED LIVER, SPLEEN, ADRENALS: The liver, spleen, adrenal glands are normal. PANCREAS: No masses. No peripancreatic inflammatory changes. GALLBLADDER: Contracted. No stones. RIGHT KIDNEY AND URETER: No suspicious masses. Assessment limited by lack of IV contrast. No signif icant calcifications. No hydronephrosis or hydroureter. LEFT KIDNEY AND URETER: No suspicious masses. Assessment limited by lack of IV contrast. No signifi cant calcifications. No hydronephrosis or hydroureter. AORTA AND RETROPERITONEUM: No aneurysm. There is atherosclerosis. There is a prominent plaque at th e origin of the superior mesenteric artery. BOWEL AND PERITONEAL CAVITY: No obvious masses or inflammatory changes. No free fluid. APPENDIX: Not identified. PELVIS, BLADDER, AND ABDOMINAL WALL:No abnormal masses. Urinary bladder is normal. There is a moder ate amount of free fluid in the pelvis. BONES: L5-S1 degenerative disc changes OTHER: There is considerable ascites around the liver and there is subcutaneous edema. IMPRESSION: 1. Bilateral pleural effusions. Reduced volume in the left hemithorax as described. H as the patient had a partial pneumonectomy? 2. Ascites and subcutaneous edema. The appearance of the liver is not particularly suggestive of ci rrhosis. Correlate clinically. 3. Atherosclerosis. 4. Osseous findings as described. COMMENT: Quality ID # [id number]: Final reports with documentation of one or more dose reduction techniques (e.g., Automated exposure control, adjustment of the mA and/or kV according to patient size, use of iterative reconstruction technique) TECHNICAL DOCUMENTATION: JOB ID: [id number] [employer]- All Rights Reserved
--- NOTE | 2017-03-12 12:37 | RADIOLOGY REPORT (SQ) ---
EXAM DESCRIPTION: U/S THORACENTESIS WITH IMAGING COMPLETED DATE/TIME: 03/12/2017 12:24 pm REASON FOR STUDY: pleural effusion COMPARISON: None. RADIATION DOSE: None LIMITATIONS: None. PROCEDURE: Procedure, risks, benefit, and alternative explained to patient who then gave written con sent. The left chest wall was marked using ultrasound guidance. A time-out was called for correct m arking verification. Chest prepped and draped using sterile technique. Local anesthesia achieved usi ng 10 ml of 1% lidocaine injection. A 5 Tajik thoracentesis catheter was introduced into the left p leural space. Fluid was aspirated. The catheter was removed and the entry site was covered with ralu rile bandage. No immediate complications noted. Images acquired during the procedure were stored on PACS. FINDINGS: ENTRY SITE: Left hemithorax posteriorly FLUID VOLUME: 550 mL FLUID ANALYSIS: Straw-colored OTHER: None IMPRESSION: SUCCESSFUL THORACENTESIS USING ultrasound GUIDANCE. COMMENT: Patient medication list reviewed: Yes Quality ID #[id number]: Final reports for procedures using fluoroscopy that document radiation exposure eliane cm, or exposure time and number of fluorographic images (if radiation exposure indices are not avail able) TECHNICAL DOCUMENTATION: JOB ID: [id number] [employer]- All Rights Reserved
--- NOTE | 2017-03-12 12:39 | RADIOLOGY REPORT (SQ) ---
EXAM DESCRIPTION: CHEST SINGLE VIEW COMPLETED DATE/TIME: 03/12/2017 12:23 pm REASON FOR STUDY: S/P LT THORACENTESIS COMPARISON: Chest CT scan dated 03/11/2017 EXAM PARAMETERS: NUMBER OF VIEWS: One view. TECHNIQUE: Single frontal radiographic view of the chest acquired. RADIATION DOSE: NA LIMITATIONS: None. FINDINGS: LUNGS AND PLEURA: No evidence for pneumothorax post thoracentesis. Chronic emphysematous changes are again identified. Again there is evidence for obstructive lung disease. No acute consol idations are identified. Interval decrease in size of the left pleural effusion. MEDIASTINUM AND HILAR STRUCTURES: No masses. Contour normal. HEART AND VASCULAR STRUCTURES: Heart normal in size. Normal vasculature. BONES: No acute findings. HARDWARE: None in the chest. OTHER: No other significant finding. IMPRESSION: No evidence for pneumothorax post thoracentesis. Other findings as noted above TECHNICAL DOCUMENTATION: JOB ID: [id number] [employer]- All Rights Reserved
[2017-03-12 13:15] LABS: FLUID TYPE PLEURAL; STAIN REACTIVITY CHECK ACCEPTABLE
[2017-03-12 13:16] LABS: FLUID APPEARANCE SLIGHTLY HAZY; FLUID RBC DILUENT USED NONE USED; FLUID RBC DILUTION FACTOR 1; FLUID RBC SIDE 1 34; FLUID RBC SIDE 2 30; TOTAL RBC SQUARES COUNTED FLD 225
[2017-03-12] MEDS: POTASSI CL 20 MEQ/50 ML RIDER 20 MEQ/50 ML RTUPB IV SCH ×2 (14:04→16:25)
--- NOTE | 2017-03-12 14:45 | RADIOLOGY REPORT (SQ) ---
EXAM DESCRIPTION: CHEST SINGLE VIEW COMPLETED DATE/TIME: 03/12/2017 2:36 pm REASON FOR STUDY: 2 HOURS S/P LT THORACENTESIS COMPARISON: 03/12/2017 EXAM PARAMETERS: NUMBER OF VIEWS: One view. TECHNIQUE: Single frontal radiographic view of the chest acquired. RADIATION DOSE: NA LIMITATIONS: None. FINDINGS: LUNGS AND PLEURA: The lungs are hyperexpanded. There is no pneumothorax. There is no inf iltrate. There is no residual effusion. MEDIASTINUM AND HILAR STRUCTURES: No masses. Contour normal. HEART AND VASCULAR STRUCTURES: Heart normal in size. Normal vasculature. BONES: No acute findings. HARDWARE: None in the chest. OTHER: No other significant finding. IMPRESSION: There is no pneumothorax. Chronic lung changes with no acute cardiopulmonary disease. TECHNICAL DOCUMENTATION: JOB ID: [id number] [employer]- All Rights Reserved
[2017-03-12 14:52] LABS: CREATINE KINASE MB 0.67 ng/mL (<4.55)
[2017-03-12 14:57] LABS: TROPONIN I < 0.012 ng/mL
[2017-03-12] MEDS: MONTELUKAST SODIUM 10 MG TABLET PO SCH (17:22)
--- NOTE | 2017-03-12 17:58 | PDOC PROGRESS REPORT ---
Subjective Progress Note for:: 03/12/17 Subjective:: Patient was seen by the bedside, he had thoracentesis done today, about 500 cc of pleural fluid was collected Physical Exam Vital Signs: Temp Pulse Resp BP Pulse Ox 98.8 F 110 H 16 99/52 L 100 03/12/17 15:28 03/12/17 15:28 03/12/17 15:28 03/12/17 15:28 03/12/17 17:05 Intake & Output 03/11/17 03/12/17 03/13/17 06:59 06:59 06:59 Intake Total 3010 2926 Output Total 790 2390 Balance 2220 536 Head exam: PRESENT: atraumatic, normocephalic Eye exam: PRESENT: conjunctiva pink, EOMI, PERRLA Ear exam: PRESENT: normal external ear exam Mouth exam: PRESENT: moist, tongue midline Neck exam: PRESENT: full ROM Respiratory exam: PRESENT: decreased breath sounds Cardiovascular exam: PRESENT: RRR, +S1, +S2 Pulses: PRESENT: normal dorsalis pedis pul, +2 pedal pulses bilateral Vascular exam: PRESENT: normal capillary refill GI/Abdominal exam: PRESENT: normal bowel sounds, soft Rectal exam: PRESENT: deferred Neurological exam: PRESENT: alert, awake, oriented to person, oriented to place , oriented to time, oriented to situation, CN II-XII grossly intact Psychiatric exam: PRESENT: appropriate affect, normal mood Skin exam: PRESENT: dry, intact, warm Results Laboratory Results: 03/12/17 06:00 03/12/17 06:00 03/11/17 03/11/17 03/11/17 18:20 19:00 19:00 WBC 4.8 RBC 3.21 L Hgb 10.2 L Hct 29.6 L MCV 92 MCH 31.7 MCHC 34.3 RDW 15.3 H Plt Count 162 Seg Neutrophils % 80.8 H Lymphocytes % 12.9 L Monocytes % 4.3 Eosinophils % 1.5 Basophils % 0.5 Absolute Neutrophils 3.9 Absolute Lymphocytes 0.6 Absolute Monocytes 0.2 Absolute Eosinophils 0.1 Absolute Basophils 0.0 Carbonic Acid 1.91 H HCO3/H2CO3 Ratio 17:1 ABG pH 7.34 L ABG pCO2 63.4 H ABG pO2 103.6 H ABG HCO3 33.1 H ABG O2 Saturation 97.2 ABG Base Excess 5.9 FiO2 2L Sodium 142.3 Potassium 3.5 L Chloride 104 Carbon Dioxide 31 H Anion Gap 7 BUN 4 L Creatinine 0.64 Est GFR ( Amer) > 60 Est GFR (Non-Af Amer) > 60 Glucose 72 L Calcium 8.6 Total Bilirubin 1.0 AST 18 ALT 23 Alkaline Phosphatase 51 Total Protein 4.3 L Albumin 2.6 L Fluid Type Fluid Source Fluid Color Fluid Appearance Fluid Viscosity Fluid WBC Fluid RBC 03/12/17 03/12/17 03/12/17 06:00 06:00 12:02 WBC 5.5 RBC 3.12 L Hgb 9.9 L Hct 28.9 L MCV 93 MCH 31.9 MCHC 34.4 RDW 15.1 H Plt Count 152 Seg Neutrophils % 86.9 H Lymphocytes % 7.4 L Monocytes % 4.5 Eosinophils % 0.8 Basophils % 0.4 Absolute Neutrophils 4.8 Absolute Lymphocytes 0.4 L Absolute Monocytes 0.2 Absolute Eosinophils 0.0 Absolute Basophils 0.0 Carbonic Acid HCO3/H2CO3 Ratio ABG pH ABG pCO2 ABG pO2 ABG HCO3 ABG O2 Saturation ABG Base Excess FiO2 Sodium 144.1 Potassium 3.3 L Chloride 101 Carbon Dioxide 37 H Anion Gap 6 BUN 4 L Creatinine 0.61 Est GFR ( Amer) > 60 Est GFR (Non-Af Amer) > 60 Glucose 82 Calcium 8.5 Total Bilirubin 0.8 AST 31 ALT 26 Alkaline Phosphatase 48 Total Protein 4.7 L Albumin 2.6 L Fluid Type PLEURAL Fluid Source Fluid Color STRAW Fluid Appearance SLIGHTLY HAZY Fluid Viscosity LIQUID Fluid WBC 100 Fluid RBC 35 03/11/17 03/11/17 03/12/17 21:49 21:49 06:00 Creatine Kinase 21 L 27 L CK-MB (CK-2) 0.57 Troponin I < 0.012 NT-Pro-B Natriuret Pep 170 03/12/17 03/12/17 03/12/17 06:00 14:04 14:04 Creatine Kinase < 20 L CK-MB (CK-2) 0.70 0.67 Troponin I < 0.012 < 0.012 NT-Pro-B Natriuret Pep Impressions: Chest CT 03/11/17 00:00 IMPRESSION: Severe emphysema. Bilateral pleural effusions left greater than right. Small pericardial effusion. Abdominal ascites. Thoracentesis Ultrasound 03/11/17 21:28 IMPRESSION: SUCCESSFUL THORACENTESIS USING ultrasound GUIDANCE. Abdomen/Pelvis CT 03/12/17 00:00 IMPRESSION: 1. Bilateral pleural effusions. Reduced volume in the left hemithorax as described. Has the patient had a partial pneumonectomy? 2. Ascites and subcutaneous edema. The appearance of the liver is not particularly suggestive of cirrhosis. Correlate clinically. 3. Atherosclerosis. 4. Osseous findings as described. Chest X-Ray 03/12/17 00:00 IMPRESSION: There is no pneumothorax. Chronic lung changes with no acute cardiopulmonary disease. Assessment & Plan - Diagnosis (1) Gastrointestinal bleeding Qualifiers: GI bleed type/associated pathology: unspecified gastrointestinal hemorrhage type Qualified Code(s): K92.2 - Gastrointestinal hemorrhage, unspecified Is this a current diagnosis for this admission?: Yes (2) Anemia due to acute blood loss Is this a current diagnosis for this admission?: Yes (3) End stage chronic obstructive pulmonary disease Is this a current diagnosis for this admission?: Yes (4) Undernutrition syndrome Is this a current diagnosis for this admission?: Yes (5) Dieulafoy lesion of duodenum Is this a current diagnosis for this admission?: Yes (6) Upper gastrointestinal bleeding Is this a current diagnosis for this admission?: Yes (7) Weight loss Is this a current diagnosis for this admission?: Yes (8) Pleural effusion, bilateral Is this a current diagnosis for this admission?: Yes (9) Bullous emphysema Is this a current diagnosis for this admission?: Yes (10) Hypoalbuminemia Is this a current diagnosis for this admission?: Yes (11) Anasarca Is this a current diagnosis for this admission?: Yes
--- NOTE | 2017-03-12 20:11 | XCELERA REPORT ---
[address] [address] Transthoracic Echocardiogram Report Name: BROCK CAMP Age: 76 yrs Gender: Male : 1940 Patient Status: Inpatient Patient Location: [address] [place], [place] [address]A Study Date: 03/12/2017 01:18 PM Height: 76 in Weight: 124 lb BSA: 1.8 m2 Procedure: A complete two-dimensional transthoracic echocardiogram was performed (2D, M-mode, spectral and color flow Doppler). The study was technically difficult with many images being suboptimal in quality. Reason For Study: chf Ordering Physician: SIDRA IBARRA Performed By: Jody Park Interpretation Summary The left ventricular ejection fraction is normal. There is mild concentric left ventricular hypertrophy. Doppler measurements suggest pseudonormalized left ventricular relaxation, which is associated with grade II/IV or mild to moderate diastolic dysfunction The left ventricle is grossly normal size. Wall motion cannot be accurately commented on, but no definite regional wall motion abnormalities noted. The right ventricular systolic function is normal. The left atrium is borderline dilated. The right atrium is normal in size There is a trace amount of mitral regurgitation There is no mitral valve stenosis. No aortic regurgitation is present. There is no aortic valve stenosis There is a trace to mild amount of tricuspid regurgitation There is mild pulmonary hypertension by echo Right ventricular systolic pressure is estimated to be elevated at 30- 40mmHg. The aortic root is not well visualized but is probably normal size. The inferior vena cava was not well visualized Minimal pericardial effusion. MMode/2D Measurements & Calculations RVDd: 4.5 cm LVIDd: 3.9 cm FS: 35.5 % Ao root diam: 2.6 cm IVSd: 0.86 cm LVIDs: 2.5 cm EDV(Teich): 66.6 ml LVPWd: 0.93 cm ESV(Teich): 22.9 ml Ao root area: 5.2 cm2 EF(Teich): 65.6 % LA dimension: 3.6 cm Doppler Measurements & Calculations MV E max gavin: MV P1/2t max gavin: Ao V2 max: LV V1 max P.5 cm/sec 79.5 cm/sec 145.2 cm/sec 7.2 mmHg MV A max gavin: MV P1/2t: 73.1 msec Ao max PG: LV V1 max: 74.0 cm/sec 8.4 mmHg 134.3 cm/sec MV E/A: 1.1 MVA(P1/2t): 3.0 cm2 MV dec slope: 318.4 cm/sec2 PA V2 max: TR max gavin: 104.6 cm/sec 281.0 cm/sec PA max PG: TR max P.6 mmHg 4.4 mmHg Left Ventricle The left ventricle is grossly normal size. There is mild concentric left ventricular hypertrophy. The left ventricular ejection fraction is normal. Doppler measurements suggest pseudonormalized left ventricular relaxation, which is associated with grade II/IV or mild to moderate diastolic dysfunction. Wall motion cannot be accurately commented on, but no definite regional wall motion abnormalities noted. Right Ventricle The right ventricle is normal in size, thickness and function. There is normal right ventricular wall thickness. The right ventricular systolic function is normal. Atria The right atrium is normal in size. The left atrium is borderline dilated. Interarterial septum not well visualized and not well dopplered. Cannot comment on ASD/PFO presence. Mitral Valve The mitral valve leaflets are sclerotic and show some degree of functional abnormality. There is no mitral valve stenosis. There is a trace amount of mitral regurgitation. Aortic Valve The aortic valve is grossly normal. There is no aortic valve stenosis. No aortic regurgitation is present. Tricuspid Valve The tricuspid valve is not well visualized, but is grossly normal. There is no tricuspid stenosis. There is a trace to mild amount of tricuspid regurgitation. There is mild pulmonary hypertension by echo. Right ventricular systolic pressure is estimated to be elevated at 30-40mmHg. Pulmonic Valve The pulmonic valve is not well visualized. Great Vessels The aortic root is not well visualized but is probably normal size. The inferior vena cava was not well visualized. Effusions Minimal pericardial effusion. : SIDRA IBARRA > Matilda oGmez
[2017-03-12] MEDS ORDERED: DILTIAZEM HCL 60 MG TABLET PO ONE (22:00)
[2017-03-12] MEDS: TAMSULOSIN HCL 0.4 MG CAP.SR.24H PO SCH (22:22)
[2017-03-12] MEDS: SIMVASTATIN 40 MG TABLET PO SCH (22:22)
[2017-03-13] MEDS: NORMAL SALINE 100 ML with PANTOPRAZOLE SODIUM 80 MG IV PRN ×2 (07:36)
[2017-03-13 09:08] LABS: ABSOLUTE EOSINOPHILS # (AUTO) 0.1 10^3/uL (0.0-0.6); ABSOLUTE LYMPHOCYTES (AUTO) 0.4 10^3/uL (0.5-4.7); ABSOLUTE MONOCYTES (AUTO) 0.2 10^3/uL (0.1-1.4); ABSOLUTE NEUT (AUTO) 2.9 10^3/uL (1.7-8.2); BASOPHILS % (AUTO) 0.4 % (0-2); EOSINOPHILS % (AUTO) 1.5 % (0-6); HEMATOCRIT 27.3 % (37.9-51.0); HEMOGLOBIN 9.3 g/dL (13.5-17.0); HGB HCT DIFFERENCE 0.6; LYMPHOCYTES % (AUTO) 11.7 % (13-45); MEAN CORPUSCULAR HEMOGLOBIN 31.3 pg (27.0-33.4); MEAN CORPUSCULAR HGB CONC 33.9 g/dL (32.0-36.0); MEAN CORPUSCULAR VOLUME 92 fl (80-97); MONOCYTES % (AUTO) 6.3 % (3-13); RED BLOOD COUNT 2.96 10^6/uL (4.35-5.55); SEGMENTED NEUTROPHILS % (AUTO) 80.1 % (42-78); WHITE BLOOD COUNT 3.7 10^3/uL (4.0-10.5)
[2017-03-13 09:25] LABS: ALANINE AMINOTRANSFERASE 27 U/L (21-72); ALBUMIN 2.3 g/dL (3.5-5.0); ALKALINE PHOSPHATASE 42 U/L (38-126); ASPARTATE AMINO TRANSFERASE 19 U/L (17-59); BILIRUBIN,DIRECT 0.3 mg/dL (0.0-0.4); BILIRUBIN,TOTAL 0.6 mg/dL (0.2-1.3); BLOOD UREA NITROGEN 4 mg/dL (7-20); CALCIUM 8.3 mg/dL (8.4-10.2); CHLORIDE 95 mmol/L (98-107); CREATININE RESULT 0.64 mg/dL (0.52-1.25); GLUCOSE 86 mg/dL (75-110); SODIUM 142.3 mmol/L (137-145)
[2017-03-13 09:36] LABS: ANION GAP 5 (5-19)
[2017-03-13 09:39] LABS: CARBON DIOXIDE 42 mmol/L (22-30)
[2017-03-13] MEDS: MULTIVIT-STRESS FORMULA/ZINC TABLET PO SCH (10:51)
[2017-03-13] MEDS: ROFLUMILAST 500 MCG TABLET PO SCH (10:52)
[2017-03-13] MEDS: FINASTERIDE 5 MG TABLET PO SCH (10:52)
[2017-03-13] MEDS: DILTIAZEM HCL 240 MG CAPSULE.CR PO SCH (10:52)
[2017-03-13] MEDS: SERTRALINE HCL 50 MG TABLET PO SCH (10:53)
[2017-03-13] MEDS: FLUTICASONE/SALMETEROL DISKUS 250-50 MCG/DOSE IH SCH ×2 (10:53→22:55)
[2017-03-13] MEDS: TIOTROPIUM BROMIDE DPI 5 CAP/KIT (18 MCG/CAP) IH SCH (10:53)
[2017-03-13] MEDS: FUROSEMIDE INJ/PF 40 MG/4 ML SDV IV SCH (10:54)
[2017-03-13] MEDS ORDERED: POTASSIUM CHLORIDE 10 MEQ TABLET.SA PO ONE (12:00)
--- NOTE | 2017-03-13 16:00 | PDOC PROGRESS REPORT ---
Subjective Progress Note for:: 03/13/17 Subjective:: Patient of a bed offer at [facility] , he has electrolyte derangement with hypokalemia and contraction alkalosis.He has transudative pleural effusion with ascities due to hypoalbumoinenia Physical Exam Vital Signs: Temp Pulse Resp BP Pulse Ox 98.3 F 95 18 114/58 L 100 03/13/17 11:17 03/13/17 11:17 03/13/17 11:17 03/13/17 11:17 03/13/17 11:17 Intake & Output 03/12/17 03/13/17 03/14/17 06:59 06:59 06:59 Intake Total 2926 1407 Output Total 1320 2875 Balance 536 -1468 Weight 64.8 kg General appearance: PRESENT: thin Head exam: PRESENT: atraumatic, normocephalic Eye exam: PRESENT: PERRLA Ear exam: PRESENT: normal external ear exam Mouth exam: PRESENT: moist, tongue midline Neck exam: PRESENT: full ROM Respiratory exam: PRESENT: clear to auscultation usman Cardiovascular exam: PRESENT: RRR, +S1, +S2 Pulses: PRESENT: normal dorsalis pedis pul, +2 pedal pulses bilateral Vascular exam: PRESENT: normal capillary refill GI/Abdominal exam: PRESENT: normal bowel sounds, soft Rectal exam: PRESENT: deferred Neurological exam: PRESENT: alert Psychiatric exam: PRESENT: appropriate affect, normal mood Skin exam: PRESENT: dry, intact, warm Results Laboratory Results: 03/13/17 08:55 03/13/17 08:55 03/12/17 03/12/17 03/12/17 12:02 12:02 12:02 WBC RBC Hgb Hct MCV MCH MCHC RDW Plt Count Seg Neutrophils % Lymphocytes % Monocytes % Eosinophils % Basophils % Absolute Neutrophils Absolute Lymphocytes Absolute Monocytes Absolute Eosinophils Absolute Basophils Sodium Potassium Chloride Carbon Dioxide Anion Gap BUN Creatinine Est GFR ( Amer) Est GFR (Non-Af Amer) Glucose Calcium Total Bilirubin AST ALT Alkaline Phosphatase Total Protein Albumin Fluid Glucose 87 Fluid Total Protein 1.0 Fluid LDH 44 Fluid Amylase 15 03/13/17 03/13/17 08:55 08:55 WBC 3.7 L RBC 2.96 L Hgb 9.3 L Hct 27.3 L MCV 92 MCH 31.3 MCHC 33.9 RDW 15.0 H Plt Count 130 L Seg Neutrophils % 80.1 H Lymphocytes % 11.7 L Monocytes % 6.3 Eosinophils % 1.5 Basophils % 0.4 Absolute Neutrophils 2.9 Absolute Lymphocytes 0.4 L Absolute Monocytes 0.2 Absolute Eosinophils 0.1 Absolute Basophils 0.0 Sodium 142.3 Potassium 3.0 L* Chloride 95 L Carbon Dioxide 42 H* Anion Gap 5 BUN 4 L Creatinine 0.64 Est GFR ( Amer) > 60 Est GFR (Non-Af Amer) > 60 Glucose 86 Calcium 8.3 L Total Bilirubin 0.6 AST 19 ALT 27 Alkaline Phosphatase 42 Total Protein 4.0 L Albumin 2.3 L Fluid Glucose Fluid Total Protein Fluid LDH Fluid Amylase 03/11/17 03/11/17 03/12/17 21:49 21:49 06:00 Creatine Kinase 21 L 27 L CK-MB (CK-2) 0.57 Troponin I < 0.012 NT-Pro-B Natriuret Pep 170 03/12/17 03/12/17 03/12/17 06:00 14:04 14:04 Creatine Kinase < 20 L CK-MB (CK-2) 0.70 0.67 Troponin I < 0.012 < 0.012 NT-Pro-B Natriuret Pep Impressions: Chest CT 03/11/17 00:00 IMPRESSION: Severe emphysema. Bilateral pleural effusions left greater than right. Small pericardial effusion. Abdominal ascites. Thoracentesis Ultrasound 03/11/17 21:28 IMPRESSION: SUCCESSFUL THORACENTESIS USING ultrasound GUIDANCE. Abdomen/Pelvis CT 03/12/17 00:00 IMPRESSION: 1. Bilateral pleural effusions. Reduced volume in the left hemithorax as described. Has the patient had a partial pneumonectomy? 2. Ascites and subcutaneous edema. The appearance of the liver is not particularly suggestive of cirrhosis. Correlate clinically. 3. Atherosclerosis. 4. Osseous findings as described. Chest X-Ray 03/12/17 00:00 IMPRESSION: No evidence for pneumothorax post thoracentesis. Other findings as noted above Assessment & Plan - Diagnosis (1) Gastrointestinal bleeding Qualifiers: GI bleed type/associated pathology: unspecified gastrointestinal hemorrhage type Qualified Code(s): K92.2 - Gastrointestinal hemorrhage, unspecified Is this a current diagnosis for this admission?: Yes (2) Anemia due to acute blood loss Is this a current diagnosis for this admission?: Yes (3) End stage chronic obstructive pulmonary disease Is this a current diagnosis for this admission?: Yes (4) Undernutrition syndrome Is this a current diagnosis for this admission?: Yes (5) Dieulafoy lesion of duodenum Is this a current diagnosis for this admission?: Yes (6) Upper gastrointestinal bleeding Is this a current diagnosis for this admission?: Yes (7) Weight loss Is this a current diagnosis for this admission?: Yes (8) Pleural effusion, bilateral Is this a current diagnosis for this admission?: Yes (9) Bullous emphysema Is this a current diagnosis for this admission?: Yes (10) Hypoalbuminemia Is this a current diagnosis for this admission?: Yes (11) Anasarca Is this a current diagnosis for this admission?: Yes (12) Hypokalemia Is this a current diagnosis for this admission?: Yes Plan: Give.[email or web address]
[2017-03-13] MEDS: POTASSI CL 20 MEQ/50 ML RIDER 20 MEQ/50 ML RTUPB IV SCH ×2 (16:04→20:29)
[2017-03-13] MEDS: MONTELUKAST SODIUM 10 MG TABLET PO SCH (20:28)
[2017-03-13] MEDS: TAMSULOSIN HCL 0.4 MG CAP.SR.24H PO SCH (22:54)
[2017-03-13] MEDS: SIMVASTATIN 40 MG TABLET PO SCH (22:54)
[2017-03-13] MEDS: LEVOFLOXACIN 750 MG/D5W RTU 750 MG/150 ML RTUPB IV SCH (22:55)
[2017-03-14 05:10] LABS: ALANINE AMINOTRANSFERASE 31 U/L (21-72); ALBUMIN 2.2 g/dL (3.5-5.0); ALKALINE PHOSPHATASE 40 U/L (38-126); ASPARTATE AMINO TRANSFERASE 16 U/L (17-59); BILIRUBIN,DIRECT 0.4 mg/dL (0.0-0.4); BILIRUBIN,TOTAL 0.6 mg/dL (0.2-1.3); BLOOD UREA NITROGEN 7 mg/dL (7-20); CALCIUM 8.4 mg/dL (8.4-10.2); CHLORIDE 97 mmol/L (98-107); CREATININE RESULT 0.65 mg/dL (0.52-1.25); GLUCOSE 86 mg/dL (75-110); POTASSIUM 3.3 mmol/L (3.6-5.0); SODIUM 143.7 mmol/L (137-145)
[2017-03-14 05:54] LABS: ANION GAP 2 (5-19)
[2017-03-14 05:55] LABS: CARBON DIOXIDE 45 mmol/L (22-30)
[2017-03-14] MEDS: FLUTICASONE/SALMETEROL DISKUS 250-50 MCG/DOSE IH SCH ×2 (09:41→22:18)
[2017-03-14] MEDS: DILTIAZEM HCL 240 MG CAPSULE.CR PO SCH (09:41)
[2017-03-14] MEDS: ROFLUMILAST 500 MCG TABLET PO SCH (09:42)
[2017-03-14] MEDS: POTASSIUM CHLORIDE 10 MEQ TABLET.SA PO SCH (09:42)
[2017-03-14] MEDS: MULTIVIT-STRESS FORMULA/ZINC TABLET PO SCH (09:43)
[2017-03-14] MEDS: FINASTERIDE 5 MG TABLET PO SCH (09:43)
[2017-03-14] MEDS: SERTRALINE HCL 50 MG TABLET PO SCH (09:43)
[2017-03-14] MEDS: TIOTROPIUM BROMIDE DPI 5 CAP/KIT (18 MCG/CAP) IH SCH (10:19)
--- NOTE | 2017-03-14 16:31 | PDOC TRANSFER SUMMARY ---
General - Admit/Disc Date/PCP Admission Date/Primary Care Provider: 03/03/17 05:58 Discharge Date: 03/15/17 - Discharge Diagnosis (1) Gastrointestinal bleeding Is this a current diagnosis for this admission?: Yes (2) Anemia due to acute blood loss Is this a current diagnosis for this admission?: Yes (3) End stage chronic obstructive pulmonary disease Is this a current diagnosis for this admission?: Yes (4) Undernutrition syndrome Is this a current diagnosis for this admission?: Yes (5) Dieulafoy lesion of duodenum Is this a current diagnosis for this admission?: Yes (6) Upper gastrointestinal bleeding Is this a current diagnosis for this admission?: Yes (7) Weight loss Is this a current diagnosis for this admission?: Yes (8) Pleural effusion, bilateral Is this a current diagnosis for this admission?: Yes (9) Bullous emphysema Is this a current diagnosis for this admission?: Yes (10) Hypoalbuminemia Is this a current diagnosis for this admission?: Yes (11) Anasarca Is this a current diagnosis for this admission?: Yes (12) Hypokalemia Is this a current diagnosis for this admission?: Yes - Additional Information Resuscitation Status: Full Code Home Medications: Diltiazem HCl [Diltiazem 24Hr ER] 180 mg PO DAILY 11/09/16 Esomeprazole Mag Trihydrate [Nexium] 40 mg PO DAILY 11/09/16 Finasteride [Proscar 5 mg Tablet] 5 mg PO DAILY 11/09/16 Fluticasone/Salmeterol [Advair 250-50 Diskus 28 dose] 1 puff IH Q12 11/09/16 Montelukast Sodium [Singulair 10 mg Tablet] 10 mg PO QPM 11/09/16 Sertraline HCl [Zoloft 50 mg Tablet] 50 mg PO DAILY 11/09/16 Tamsulosin HCl [Flomax 0.4 mg Cap.sr] 0.8 mg PO QHS 11/09/16 Tiotropium Clymer [Spiriva Handihaler 18 mcg/dose (30 Dose)] 1 cap IH DAILY Albuterol Sulfate [Proair HFA Inhalation Aerosol 8.5 gm MDI] 2 puff IH Q4HP PRN 03/03/17 Megestrol Acetate 800 mg PO DAILY 03/03/17 Roflumilast [Daliresp 500 mcg Tablet] 500 mcg PO DAILY 03/03/17 Furosemide [Lasix 40 mg Tablet] 40 mg PO QAM #30 tablet 03/14/17 Potassium Chloride [Klor-Con 10 Meq Tablet.sa] 40 meq PO DAILY tablet.sa History of Present Illness Admission Date/PCP: 03/03/17 05:58 Patient presented to the emergency room on 03/03/2009/15/2016 for evaluation of generalized weakness, shortness of breath and lightheadedness. In the emergency room he was evaluated, he was found to have tachycardia, he has a history of chronic atrial fibrillation, the hemogram revealed hemoglobin 7.0. Hospital Course Hospital Course: Patient required multiple blood transfusion because of upper GI bleed, he had upper endoscopy and colonoscopy on 03/06/2017, the upper endoscopy showed active bleeding in the third part of duodenum without any mucosa lesion, the colonoscopy was limited because of poor prep was found to have sigmoid diverticulosis. Hospital course was complicated with shortness of breath, CT chest without contrast was obtained, he has a history of severe bullous emphysema, CT chest showed severe bullous emphysema with bilateral pleural effusions left more than right also found with ascites. He underwent thoracentesis, over 500 cc of pleural fluid was collected, it was transudative pleural fluid, 2D echo was done because of concern for CHF. Echo showed preserved ejection fraction of left ventricle there was grade 2 diastolic dysfunction of the left ventricle also found was pulmonary hypertension on the basis of the increased right ventricular systolic pressure estimated at 30 mmHg. -40 mmHg. He has severe hypoalbuminemia due to undernutrition it was felt that the ascites and pleural effusion is secondary to the severe hypoalbuminemia he was treated with diuretic, furosemide. Patient has been losing weight progressively for many months to years he has been extensively evaluated for the weight loss, he has had endoscopies and CAT scans with no mass found, it was felt that the weight loss is partly due to COPD, end-stage type. The plan is to transfer patient to [facility] for long[facility]term stay. He also had electrolyte derangement including low potassium requiring replacement therapy patient was on Pradaxa for his atrial fibrillation because of the upper GI bleed due to the extensive this was held on the plan is to revisit this in about a month and probably start on a different anticoagulant Physical Exam Vital Signs: Temp Pulse Resp BP Pulse Ox 98.8 F 107 H 17 104/53 L 100 03/14/17 12:12 03/14/17 14:00 03/14/17 12:12 03/14/17 12:12 03/14/17 12:12 Intake & Output 03/13/17 03/14/17 03/15/17 06:59 06:59 06:59 Intake Total 1407 1578 0 Output Total 2875 500 225 Balance -1468 1078 -225 Weight 64.8 kg General appearance: PRESENT: no acute distress Head exam: PRESENT: normocephalic Eye exam: PRESENT: PERRLA. ABSENT: scleral icterus Ear exam: PRESENT: normal external ear exam Respiratory exam: PRESENT: decreased breath sounds Cardiovascular exam: PRESENT: RRR, +S1, +S2 Pulses: PRESENT: normal dorsalis pedis pul Vascular exam: PRESENT: normal capillary refill GI/Abdominal exam: PRESENT: normal bowel sounds, soft Rectal exam: PRESENT: deferred Extremities exam: PRESENT: full ROM Neurological exam: PRESENT: alert, CN II-XII grossly intact Psychiatric exam: PRESENT: appropriate affect, normal mood Skin exam: PRESENT: dry, intact, warm. ABSENT: cyanosis, rash Results Laboratory Results: 03/13/17 08:55 03/14/17 04:12 03/14/17 04:12 Sodium 143.7 Potassium 3.3 L Chloride 97 L Carbon Dioxide 45 H* Anion Gap 2 L BUN 7 Creatinine 0.65 Est GFR ( Amer) > 60 Est GFR (Non-Af Amer) > 60 Glucose 86 Calcium 8.4 Total Bilirubin 0.6 AST 16 L ALT 31 Alkaline Phosphatase 40 Total Protein 4.0 L Albumin 2.2 L 03/12/17 12:02 Pleural Fluid - Not Specified Fungal Smear - Final 03/12/17 12:02 Pleural Fluid - Not Specified Fungal Smear - Final 03/12/17 12:02 Pleural Fluid - Not Specified AFB Smear Concentration - Final 03/12/17 12:02 Pleural Fluid - Not Specified Acid Fast Bacilli Smear - Final 03/11/17 03/11/17 03/12/17 21:49 21:49 06:00 Creatine Kinase 21 L 27 L CK-MB (CK-2) 0.57 Troponin I < 0.012 NT-Pro-B Natriuret Pep 170 03/12/17 03/12/17 03/12/17 06:00 14:04 14:04 Creatine Kinase < 20 L CK-MB (CK-2) 0.70 0.67 Troponin I < 0.012 < 0.012 NT-Pro-B Natriuret Pep Impressions: Chest CT 03/11/17 00:00 IMPRESSION: Severe emphysema. Bilateral pleural effusions left greater than right. Small pericardial effusion. Abdominal ascites. Thoracentesis Ultrasound 03/11/17 21:28 IMPRESSION: SUCCESSFUL THORACENTESIS USING ultrasound GUIDANCE. Abdomen/Pelvis CT 03/12/17 00:00 IMPRESSION: 1. Bilateral pleural effusions. Reduced volume in the left hemithorax as described. Has the patient had a partial pneumonectomy? 2. Ascites and subcutaneous edema. The appearance of the liver is not particularly suggestive of cirrhosis. Correlate clinically. 3. Atherosclerosis. 4. Osseous findings as described. Chest X-Ray 03/12/17 00:00 IMPRESSION: No evidence for pneumothorax post thoracentesis. Other findings as noted above
--- NOTE | 2017-03-14 16:34 | PDOC PROGRESS REPORT ---
Subjective Progress Note for:: 03/14/17 Subjective:: Patient seen by the bedside, still have low potassium, plan is to transfer the assisted in the morning. Physical Exam Vital Signs: Temp Pulse Resp BP Pulse Ox 99.0 F 97 18 95/45 L 100 03/14/17 15:51 03/14/17 15:51 03/14/17 15:51 03/14/17 15:51 03/14/17 15:51 Intake & Output 03/13/17 03/14/17 03/15/17 06:59 06:59 06:59 Intake Total 1407 1578 0 Output Total 2875 500 225 Balance -1468 1078 -225 Weight 64.8 kg General appearance: PRESENT: thin Eye exam: ABSENT: scleral icterus Mouth exam: PRESENT: moist, tongue midline Neck exam: PRESENT: full ROM Respiratory exam: PRESENT: decreased breath sounds Cardiovascular exam: PRESENT: RRR, +S1, +S2 Pulses: PRESENT: normal dorsalis pedis pul, +2 pedal pulses bilateral Vascular exam: PRESENT: normal capillary refill GI/Abdominal exam: PRESENT: normal bowel sounds, soft Rectal exam: PRESENT: deferred Neurological exam: PRESENT: alert Psychiatric exam: ABSENT: homicidal ideation, suicidal ideation Skin exam: PRESENT: dry, intact, warm. ABSENT: cyanosis, rash Results Laboratory Results: 03/13/17 08:55 03/14/17 04:12 03/14/17 04:12 Sodium 143.7 Potassium 3.3 L Chloride 97 L Carbon Dioxide 45 H* Anion Gap 2 L BUN 7 Creatinine 0.65 Est GFR ( Amer) > 60 Est GFR (Non-Af Amer) > 60 Glucose 86 Calcium 8.4 Total Bilirubin 0.6 AST 16 L ALT 31 Alkaline Phosphatase 40 Total Protein 4.0 L Albumin 2.2 L 03/12/17 12:02 Pleural Fluid - Not Specified Fungal Smear - Final 03/12/17 12:02 Pleural Fluid - Not Specified Fungal Smear - Final 03/12/17 12:02 Pleural Fluid - Not Specified AFB Smear Concentration - Final 03/12/17 12:02 Pleural Fluid - Not Specified Acid Fast Bacilli Smear - Final 03/11/17 03/11/17 03/12/17 21:49 21:49 06:00 Creatine Kinase 21 L 27 L CK-MB (CK-2) 0.57 Troponin I < 0.012 NT-Pro-B Natriuret Pep 170 03/12/17 03/12/17 03/12/17 06:00 14:04 14:04 Creatine Kinase < 20 L CK-MB (CK-2) 0.70 0.67 Troponin I < 0.012 < 0.012 NT-Pro-B Natriuret Pep Impressions: Chest CT 03/11/17 00:00 IMPRESSION: Severe emphysema. Bilateral pleural effusions left greater than right. Small pericardial effusion. Abdominal ascites. Thoracentesis Ultrasound 03/11/17 21:28 IMPRESSION: SUCCESSFUL THORACENTESIS USING ultrasound GUIDANCE. Abdomen/Pelvis CT 03/12/17 00:00 IMPRESSION: 1. Bilateral pleural effusions. Reduced volume in the left hemithorax as described. Has the patient had a partial pneumonectomy? 2. Ascites and subcutaneous edema. The appearance of the liver is not particularly suggestive of cirrhosis. Correlate clinically. 3. Atherosclerosis. 4. Osseous findings as described. Chest X-Ray 03/12/17 00:00 IMPRESSION: No evidence for pneumothorax post thoracentesis. Other findings as noted above Assessment & Plan - Diagnosis (1) Gastrointestinal bleeding Qualifiers: GI bleed type/associated pathology: unspecified gastrointestinal hemorrhage type Qualified Code(s): K92.2 - Gastrointestinal hemorrhage, unspecified Is this a current diagnosis for this admission?: Yes (2) Anemia due to acute blood loss Is this a current diagnosis for this admission?: Yes (3) End stage chronic obstructive pulmonary disease Is this a current diagnosis for this admission?: Yes (4) Undernutrition syndrome Is this a current diagnosis for this admission?: Yes (5) Dieulafoy lesion of duodenum Is this a current diagnosis for this admission?: Yes (6) Upper gastrointestinal bleeding Is this a current diagnosis for this admission?: Yes (7) Weight loss Is this a current diagnosis for this admission?: Yes (8) Pleural effusion, bilateral Is this a current diagnosis for this admission?: Yes (9) Bullous emphysema Is this a current diagnosis for this admission?: Yes (10) Hypoalbuminemia Is this a current diagnosis for this admission?: Yes (11) Anasarca Is this a current diagnosis for this admission?: Yes (12) Hypokalemia Is this a current diagnosis for this admission?: Yes - Plan Summary Plan Summary: Potassium to be replaced, discharge to halfway home in the morning
[2017-03-14] MEDS ORDERED: POTASSI CL 20 MEQ/50 ML RIDER 20 MEQ/50 ML RTUPB IV ONE (17:00)
[2017-03-14] MEDS: MONTELUKAST SODIUM 10 MG TABLET PO SCH (17:31)
[2017-03-14] MEDS ORDERED: LEVOFLOXACIN 750 MG TABLET PO SCH (22:00)
[2017-03-14] MEDS: SIMVASTATIN 40 MG TABLET PO SCH (22:17)
[2017-03-14] MEDS: TAMSULOSIN HCL 0.4 MG CAP.SR.24H PO SCH (22:17)
[2017-03-15 08:06] VITALS: BP 95/48
[2017-03-15] MEDS: ROFLUMILAST 500 MCG TABLET PO SCH (11:07)
[2017-03-15] MEDS: MULTIVIT-STRESS FORMULA/ZINC TABLET PO SCH (11:07)
[2017-03-15] MEDS: DILTIAZEM HCL 240 MG CAPSULE.CR PO SCH (11:07)
[2017-03-15] MEDS: SERTRALINE HCL 50 MG TABLET PO SCH (11:07)
[2017-03-15] MEDS: POTASSIUM CHLORIDE 10 MEQ TABLET.SA PO SCH (11:08)
[2017-03-15] MEDS: FINASTERIDE 5 MG TABLET PO SCH (11:08)
[2017-03-15] MEDS: FLUTICASONE/SALMETEROL DISKUS 250-50 MCG/DOSE IH SCH (11:09)
[2017-03-15] MEDS: TIOTROPIUM BROMIDE DPI 5 CAP/KIT (18 MCG/CAP) IH SCH (11:10)
== END 2017-03-15 13:16 | DRG 378 ==
LOC: ER 02:31 → UNDOADMIN 04:34 → EH 04:34 → 4S 05:30 → EH 05:30 → 4S 05:58 → EH 05:58 → 4W 03-04 08:09 → 3W 03-12 02:12
PROVIDERS: ADMIT Internal Medicine; ATTEND Internal Medicine
PROC: 30233N1 Transfusion of Nonautologous Red Blood Cells into Peripheral Vein, Percutaneous Approach (ICD-10-PCS; 2017-03-03)
PROC: 30233N1 Transfusion of Nonautologous Red Blood Cells into Peripheral Vein, Percutaneous Approach (ICD-10-PCS; 2017-03-04)
PROC: 30233N1 Transfusion of Nonautologous Red Blood Cells into Peripheral Vein, Percutaneous Approach (ICD-10-PCS; 2017-03-05)
PROC: 0W3P8ZZ Control Bleeding in Gastrointestinal Tract, Via Natural or Artificial Opening Endoscopic (ICD-10-PCS; principal; 2017-03-06 18:00)
PROC: 0DJD8ZZ Inspection of Lower Intestinal Tract, Via Natural or Artificial Opening Endoscopic (ICD-10-PCS; 2017-03-06 18:00)
PROC: 30233N1 Transfusion of Nonautologous Red Blood Cells into Peripheral Vein, Percutaneous Approach (ICD-10-PCS; 2017-03-08)
PROC: 0W9B3ZX Drainage of Left Pleural Cavity, Percutaneous Approach, Diagnostic (ICD-10-PCS; 2017-03-12)
DX: K31.82 Dieulafoy lesion (hemorrhagic) of stomach and duodenum (principal); D62 Acute posthemorrhagic anemia; E46 Unspecified protein-calorie malnutrition; J90 Pleural effusion, not elsewhere classified; Z68.1 Body mass index [BMI] 19.9 or less, adult; J43.9 Emphysema, unspecified; E88.09 Other disorders of plasma-protein metabolism, not elsewhere classified; E87.6 Hypokalemia; E87.5 Hyperkalemia; K57.30 Diverticulosis of large intestine without perforation or abscess without bleeding; I27.20 Pulmonary hypertension, unspecified; I48.0 Paroxysmal atrial fibrillation; I48.2 Chronic atrial fibrillation; R60.1 Generalized edema; I25.10 Atherosclerotic heart disease of native coronary artery without angina pectoris; I10 Essential (primary) hypertension; K44.9 Diaphragmatic hernia without obstruction or gangrene; M19.90 Unspecified osteoarthritis, unspecified site; N40.0 Benign prostatic hyperplasia without lower urinary tract symptoms; F32.9 Major depressive disorder, single episode, unspecified; Z79.899 Other long term (current) drug therapy; Z95.0 Presence of cardiac pacemaker; Z87.891 Personal history of nicotine dependence; Z87.442 Personal history of urinary calculi; Z86.010 Personal history of colon polyps
CPT/HCPCS: 32555; 36415; 36430; 36600; 43255; 45378; 71010; 71250; 74176; 80053; 81001; 82150; 82272; 82550; 82553; 82803; 82945; 83615; 83735; 83880; 84157; 84443; 84484; 85025; 85027; 85610; 85730; 86701; 86850; 86900; 86901; 86920; 87015; 87070; 87075; 87101; 87116; 87205; 87206; 87252; 88305; 88341; 88342; 89050; 93005; 93010; 93306; 99285; J0171; J1610; J1940; J1956; J2250; J2310; J3010; J3480; J3490; J7030; P9016; S0164

== ENCOUNTER 2018-02-08 20:09 | Emergency (ER) | payer MEDICARE, MEDICAID ==
[2018-02-08 21:19] LABS: APPEARANCE,URINE CLEAR; BILIRUBIN,URINE NEGATIVE (NEGATIVE); COLOR,URINE COLORLESS; GLUCOSE, URINE NEGATIVE (NEGATIVE); KETONES,URINE NEGATIVE (NEGATIVE); LEUKOCYTE ESTERASE,URINE NEGATIVE (NEGATIVE); NITRITE,URINE NEGATIVE (NEGATIVE); PROTEIN,URINE NEGATIVE (NEGATIVE); URINE SPECIFIC GRAVITY 1.006; UROBILINOGEN,URINE NEGATIVE mg/dL (<2.0)
--- NOTE | 2018-02-08 22:19 | ER Document Report ---
ED General - General Chief Complaint: Urinary Retention Stated Complaint: PROBLEMS URINATING Time Seen by Provider: 02/08/18 20:35 Notes: Patient is a 77-year-old male who currently resides in nursing facility who presents with difficulty with voiding. Apparently his doctor had ordered a Eubanks catheter be placed at the nursing facility but they were unable to place the catheter successfully. His doctor then ordered that he be transported to the emergency department. The patient has had a Eubanks catheter placed at the time of my initial assessment, denies any going symptoms or concerns. Reports a history of urinary retention in the past. Denies any dysuria, abdominal pain , flank pain, fever or constitutional symptoms. He states that he had some mild sensations of bladder fullness prior to the Eubanks placement but those have completely resolved. No obvious trigger for today's events. TRAVEL OUTSIDE OF THE [place] IN LAST 30 DAYS: No - Related Data Allergies/Adverse Reactions: No Known Allergies Allergy (Verified 06/19/16 15:21) Past Medical History - General Information source: Patient - Social History Smoking Status: Former Smoker Frequency of alcohol use: None Drug Abuse: None Lives with: [facility] Family History: Reviewed & Not Pertinent Patient has suicidal ideation: No Patient has homicidal ideation: No - Past Medical History Cardiac Medical History: Reports: Hx Atrial Fibrillation - paroxysmal, Hx Coronary Artery Disease, Hx Hypercholesterolemia, Hx Hypertension Denies: Hx Heart Attack Pulmonary Medical History: Reports: Hx Asthma, Hx Bronchitis, Hx COPD, Hx Pneumonia - september 2011, Hx Respiratory Failure Denies: Hx Tuberculosis Neurological Medical History: Denies: Hx Cerebrovascular Accident, Hx Seizures Renal/ Medical History: Reports: Hx Benign Prostatic Hyperplasia, Hx Kidney Stones. Denies: Hx Peritoneal Dialysis GI Medical History: Reports: Hx Hiatal Hernia Musculoskeletal Medical History: Reports Hx Arthritis Psychiatric Medical History: Reports: Hx Depression Past Surgical History: Reports: Hx Pacemaker - Immunizations Hx Diphtheria, Pertussis, Tetanus Vaccination: Yes Hx Pneumococcal Vaccination: 04/29/10 Review of Systems - Review of Systems Notes: Constitutional: Negative for fever. HENT: Negative for sore throat. Eyes: Negative for visual changes. Cardiovascular: Negative for chest pain. Respiratory: Negative for shortness of breath. Gastrointestinal: Negative for abdominal pain, vomiting or diarrhea. Genitourinary: Positive for urinary retention Musculoskeletal: Negative for back pain. Skin: Negative for rash. Neurological: Negative for headaches, weakness or numbness. 10 point ROS negative except as marked above and in HPI. Physical Exam - Vital signs Vitals: Temp Pulse Resp BP Pulse Ox 97.9 F 91 17 113/59 L 98 02/08/18 20:22 02/08/18 20:22 02/08/18 20:22 02/08/18 20:22 02/08/18 20:22 Notes: PHYSICAL EXAMINATION: GENERAL: Well-appearing, well-nourished and in no acute distress. HEAD: Atraumatic, normocephalic. EYES: Pupils equal round and reactive to light, extraocular movements intact, sclera anicteric, conjunctiva are normal. ENT: nares patent, oropharynx clear without exudates. Moist mucous membranes. NECK: Normal range of motion, supple without lymphadenopathy LUNGS: Breath sounds clear to auscultation bilaterally and equal. No wheezes rales or rhonchi. HEART: Irregular irregular rate and rhythm without murmurs ABDOMEN: Soft, nontender, normoactive bowel sounds. No guarding, no rebound. No masses appreciated. EXTREMITIES: Normal range of motion, no pitting or edema. No cyanosis. NEUROLOGICAL: No focal neurological deficits. Moves all extremities spontaneously and on command. PSYCH: Normal mood, normal affect. SKIN: Warm, Dry, normal turgor, no rashes or lesions noted. Course - Re-evaluation Re-evalutation: 02/08/18 22:16 Patient presents with complaints of urinary retention, history of the same. He was sent from the nursing facility as they could not place a Eubanks catheter. Eubanks catheter is in place here without any complication. Good urine flow. No evidence of infection. Patient denies any additional complaints or concerns. At this time will discharge with return precautions and follow-up recommendations. Verbal discharge instructions given a the bedside and opportunity for questions given. Medication warnings reviewed. Patient is in agreement with this plan and has verbalized understanding of return precautions. - Vital Signs Vital signs: Temp Pulse Resp BP Pulse Ox 99.1 F 96 28 H 112/72 99 02/08/18 23:18 02/08/18 23:18 02/08/18 23:18 02/08/18 23:18 02/08/18 23:18 - Laboratory Laboratory results interpreted by me: 02/08/18 20:56 Urine Blood MODERATE H Discharge - Discharge Clinical Impression: Urinary retention Condition: Fair Disposition: SNF-Other Additional Instructions: Please return to the emergency room immediately if you experience any concerning symptoms including high fevers, severe headache, chest pain, difficulty breathing, abdominal pain, slurred speech, numbness or weakness in your arms or legs, or any other symptom that concerns you. Referrals: SIDRA IBARRA MD [Primary Care Provider] - Follow up as needed
[2018-02-08 23:27] VITALS: BP 112/72
== END 2018-02-08 23:30 ==
LOC: ER 20:09
DX: R33.9 Retention of urine, unspecified (principal); I48.91 Unspecified atrial fibrillation; I25.10 Atherosclerotic heart disease of native coronary artery without angina pectoris; E78.00 Pure hypercholesterolemia, unspecified; I10 Essential (primary) hypertension; J44.9 Chronic obstructive pulmonary disease, unspecified; Z87.442 Personal history of urinary calculi; Z95.0 Presence of cardiac pacemaker
CPT/HCPCS: 51702; 81001; 99284

== ENCOUNTER 2019-04-08 10:30 | Day surgery (SDC) | payer MEDICARE, MEDICAID ==
[~2019-04-08 10:30] MED LIST: CHONDR SU A NA/HYALUR INTRAOC KIT (SURGICARE) ONE; EPINEPHRINE INJ/PF 1 MG/1 ML AMPULE ONE; FENTANYL CITRATE INJ/PF 100 MCG/2 ML AMPUL ONE; KETOROLAC TROMETHAMINE 0.45% 4 DROP/0.4 ML DROPERETTE OD PRN; LIDOCAINE 1% INJ-PF (10 MG/ML) 30 ML SDV ONE; MIDAZOLAM 2 MG/2 ML INJ ONE; ONDANSETRON HCL INJ/PF 4 MG/2 ML SDV ONE; TOBRAMYCIN SULFATE/DEXAMETH OPH OINTMENT 3.5 GM ONE
[2019-04-08] MEDS: TROPICAMIDE 1% OPH SOLN 15 ML OD PRN ×3 (11:00→11:19)
[2019-04-08] MEDS: TETRACAINE HCL 0.5% OPH SOLN 4 ML OD PRN ×3 (11:00→11:24)
[2019-04-08] MEDS: CYCLOPENTOLATE 0.2%/PHENYLEPHRINE 1% OPH SOLN 2 ML OD PRN ×3 (11:01→11:19)
[2019-04-08] MEDS: BESIFLOXACIN HCL 0.6% OPH SUSP 5 ML BOTTLE OD PRN ×4 (11:01→11:49)
[2019-04-08] MEDS ORDERED: MIDAZOLAM 2 MG/2 ML INJ ONE (11:21)
[2019-04-08] MEDS ORDERED: FENTANYL CITRATE INJ/PF 100 MCG/2 ML AMPUL ONE (11:21)
[2019-04-08] MEDS: DORZOLAMIDE HCL 2%/TIMOLOL MALEAT 0.5% OPH SOLN 10 ML OD PRN ×2 (11:51)
== END 2019-04-08 12:32 ==
LOC: SC 10:30
PROVIDERS: ATTEND Ophthalmology
DX: H25.11 Age-related nuclear cataract, right eye (principal); H40.1111 Primary open-angle glaucoma, right eye, mild stage; J44.9 Chronic obstructive pulmonary disease, unspecified; I11.9 Hypertensive heart disease without heart failure; E78.00 Pure hypercholesterolemia, unspecified; Z99.81 Dependence on supplemental oxygen; I73.9 Peripheral vascular disease, unspecified; Z79.01 Long term (current) use of anticoagulants; Z79.899 Other long term (current) drug therapy; Z79.51 Long term (current) use of inhaled steroids; F17.210 Nicotine dependence, cigarettes, uncomplicated
CPT/HCPCS: 0191T; 66984; 142; C1783; J0171; J2250; J2405; J3010; J3490; V2632

== ENCOUNTER 2019-04-14 15:09 | Inpatient (IN) | payer MEDICARE, MEDICAID ==
[2019-04-14] MEDS ORDERED: NORMAL SALINE 1000 ML 1,000 ML IV ONE (15:25)
[2019-04-14] MEDS ORDERED: PIPERACILLIN SODIUM/TAZOBACTAM 4.5 GM in NORMAL SALINE 100 ML IV SCH (15:30)
[2019-04-14] MEDS ORDERED: VANCOMYCIN HCL 0 MG in DEXTROSE 5%-WATER 250 ML IV NR (15:30)
--- NOTE | 2019-04-14 15:31 | ER Document Report ---
ED Fever - General Stated Complaint: FEVER Time Seen by Provider: 04/14/19 15:13 Notes: Mr. Fuentes is a 78 yo m w/ PMH peripheral vascular disease, muscular contractures, difficulty walking, insomnia, GERD, BPH, major depression, hypertension, malnutrition, atherosclerosis, pulmonary hypertension, chronic A. fib, diastolic congestive heart failure, COPD, pyothorax, chylous effusion, diverticulosis, GI hemorrhage, edema and weight loss BIBA for fever. Patient is unable to provide any history secondary to altered mental status as well as his current condition. Per EMS, they were called to [facility] for fever. [facility] staff told him that his axillary temp was 105. In route with EMS, rectal temp was performed which was 104.1. Patient had already been administered 650 of Tylenol by [facility] prior to arrival. In route with EMS, the patient became more confused and became hypoxic. He is normally on 3 L of nasal cannula oxygen at baseline, his oxygen dropped down to the 60s. EMS placed the patient on nonrebreather. His blood pressure also became low in route with systolics in the 70s. TRAVEL OUTSIDE OF THE [place] IN LAST 30 DAYS: No - Related Data Allergies/Adverse Reactions: No Known Allergies Allergy (Verified 04/06/19 09:09) Past Medical History - Social History Smoking Status: Former Smoker Family History: Reviewed & Not Pertinent - Past Medical History Cardiac Medical History: Reports: Hx Atrial Fibrillation - paroxysmal, Hx Coronary Artery Disease, Hx Hypercholesterolemia, Hx Hypertension Denies: Hx Heart Attack Pulmonary Medical History: Reports: Hx Asthma, Hx Bronchitis, Hx COPD, Hx Pneumonia - september 2011, Hx Respiratory Failure Denies: Hx Tuberculosis Neurological Medical History: Denies: Hx Cerebrovascular Accident, Hx Seizures Renal/ Medical History: Reports: Hx Benign Prostatic Hyperplasia, Hx Kidney Stones. Denies: Hx Peritoneal Dialysis GI Medical History: Denies: Hx Hepatitis, Hx Hiatal Hernia, Hx Ulcer Musculoskeletal Medical History: Reports Hx Arthritis Psychiatric Medical History: Reports: Hx Depression Infectious Medical History: Denies: Hx Hepatitis Past Surgical History: Denies: Hx Open Heart Surgery, Hx Pacemaker - Immunizations Hx Diphtheria, Pertussis, Tetanus Vaccination: Yes Hx Pneumococcal Vaccination: 04/29/10 Review of Systems - Review of Systems -: Yes ROS unobtainable due to patient's medical condition Physical Exam - Vital signs Vitals: Pulse Ox 100 04/14/19 16:05 Interpretation: Tachycardic, Hypoxic, Tachypneic, Febrile - General General appearance: Alert, Lethargic In distress: Moderate Notes: Diffusely cachectic. Poorly groomed with dry and dirty skin on his chest and abdomen. - HEENT Head: Normocephalic, Atraumatic Eyes: Normal Pupils: PERRL - Respiratory Respiratory status: No respiratory distress Chest status: Nontender Breath sounds: Decreased air movement, Nonproductive cough, Rales, Rhonchi Chest palpation: Normal - Cardiovascular Rhythm: Tachycardia Heart sounds: Normal auscultation Murmur: No - Abdominal Inspection: Normal Distension: No distension Bowel sounds: Normal Tenderness: Nontender Organomegaly: No organomegaly - Back Back: Normal, Nontender - Extremities General upper extremity: Normal inspection, Nontender, Normal color, Normal temperature General lower extremity: Normal inspection, Nontender, Normal color, Normal temperature, Normal weight bearing, Other - Contracted bilateral lower extre mities, flexed at the knee and hip. No: Sally's sign - Neurological Neuro grossly intact: Yes Cognition: Normal Orientation: Disoriented to place - Believes he is at rehab, Disoriented to time - States it's novemver, Disoriented to events - believes Melendez is president Thurston Coma Scale Eye Opening: Spontaneous Rajeev Coma Scale Verbal: Confused Rajeev Coma Scale Motor: Obeys Commands [place]ston Coma Scale Total: 14 Speech: Normal Sensory: Normal - Psychological Associated symptoms: Normal affect, Normal mood - Skin Skin Temperature: Warm Skin Moisture: Dry Skin Color: Normal Course - Re-evaluation Re-evalutation: Patient is ill-appearing but nontoxic. Initial vitals notable for fever and tachycardia. Blood pressure however here is stable. Differential diagnosis includes sepsis, pneumonia, dehydration, UTI, electrolyte abnormality 04/14/19 15:34 Given patient's significantly elevated fever and abnormal vitals, sepsis protocol was initiated. Patient ordered for 1 L of fluid for now and on spectrum antibiotics with bank Zosyn. Labs including blood cultures and lactic acid also ordered. Initial BP here is stable at 133. Will reassess after nakita christian of work-up returns. 04/14/19 15:35 CBC does not show significant leukocytosis however there is a significant left shift with 91% neutrophils. H&H is low but stable at this point in time. CMP s hows elevated BUN to creatinine ratio, consistent with dehydration. Patient was ordered for 1500 mL's of fluid given his known history of CHF. Will administer another 500 mL's. Is 30 mL/kg sepsis bolus would be approximately 4125-6580. Initial lactate was elevated at 2.4. EKG nonischemic and initial troponin is negative. Chest x-ray consistent with emphysema without evidence of pneumonia. 04/14/19 18:06 Calling for admission w/ Dr. Douglas. 04/14/19 18:[address] Douglas to [facility]. 04/14/19 18:55 ABG notable for elevated PCO2 of 96. Patient was placed on BiPAP. pH is low at 7.28. 04/14/19 19:05 is made aware of the patient as the patient is admitted to the [facility] and there are no beds therefore he might require reassessment. Antibiotics were ordered at 1530. I went to reassess the patient prior to leaving my shift and I found the Zosyn hanging next to the patient's bedside. I also continue to encourage nursing to obtain a UA and a bladder scanner had been sitting in the room for over 2 hours. Patient was able to use the urinal however the urine was not sent. I discussed this with the charge nurse. Antibiotics will be held now however the delay in antibiotic administration was related to delay nursing care. - Vital Signs Vital signs: Temp Pulse Resp BP Pulse Ox 102.0 F H 127 H 42 H 115/60 100 04/14/19 16:07 04/14/19 16:07 04/14/19 16:07 04/14/19 16:07 04/14/19 16:07 - Laboratory Result Diagrams: 04/14/19 15:26 04/14/19 15:26 Laboratory results interpreted by me: 04/14/19 04/14/19 04/14/19 15:26 15:26 15:26 RBC 3.20 L Hgb 9.0 L Hct 27.9 L RDW 15.3 H Lymph % (Auto) 5.1 L Absolute Lymphs (auto) 0.4 L Seg Neutrophils % 91.1 H Carbonic Acid ABG pH ABG pCO2 ABG pO2 ABG HCO3 ABG Total CO2 ABG O2 Saturation Chloride 90 L Carbon Dioxide 42 H* BUN 29 H Lactic Acid (Sepsis) 2.4 H 12/17/19 15:26 RBC Hgb Hct RDW Lymph % (Auto) Absolute Lymphs (auto) Seg Neutrophils % Carbonic Acid 2.90 H ABG pH 7.28 L ABG pCO2 96.3 H* ABG pO2 227.7 H ABG HCO3 44.2 H ABG Total CO2 47.2 H ABG O2 Saturation 99.3 H Chloride Carbon Dioxide BUN Lactic Acid (Sepsis) - EKG Interpretation by Wi EKG shows normal: Sinus rhythm, QRS Complexes, ST-T Waves Rate: Tachycardia Rhythm: NSR [place]/QRS: Left axis deviation Voltage: Decreased voltage Critical Care Note - Critical Care Note Total time excluding time spent on procedures (mins): 45 - Need for multiple reassessments, concern for multiple etiologies including sepsis, COPD, need for administration of multiple medications including IV antibiotics, treatment of COPD exacerbation, prophylactic treatment of sepsis with broad-spectrum antibiotics, need for CPAP given level of work apnea Discharge - Discharge Clinical Impression: COPD with acute exacerbation, Lactic acidosis Sepsis Qualifiers: Sepsis type: sepsis due to unspecified organism Sepsis acute organ dysfunction status: unspecified Qualified Code(s): A41.9 - Sepsis, unspecified organism Altered mental status Qualifiers: Altered mental status type: unspecified Qualified Code(s): R41.82 - Altered me ntal status, unspecified Respiratory failure with hypercapnia Qualifiers: Chronicity: acute Qualified Code(s): J96.02 - Acute respiratory failure with hypercapnia Anemia Qualifiers: Anemia type: unspecified type Qualified Code(s): D64.9 - Anemia, unspecified Condition: Fair Disposition: ADMITTED INPATIENT Admitting Provider: Misael Unit Admitted: [facility]
[2019-04-14] MEDS ORDERED: ACETAMINOPHEN 325 MG SUPP.RECT PR ONE (15:35)
[2019-04-14 15:44] LABS: ABSOLUTE LYMPHOCYTES (AUTO) 0.4 10^3/uL (0.5-4.7); ABSOLUTE MONOCYTES (AUTO) 0.3 10^3/uL (0.1-1.4); ABSOLUTE NEUT (AUTO) 7.2 10^3/uL (1.7-8.2); BASOPHILS % (AUTO) 0.1 % (0-2); HEMATOCRIT 27.9 % (37.9-51.0); LYMPHOCYTES % (AUTO) 5.1 % (13-45); MEAN CORPUSCULAR HEMOGLOBIN 28.2 pg (27.0-33.4); MEAN CORPUSCULAR HGB CONC 32.4 g/dL (32.0-36.0); MEAN CORPUSCULAR VOLUME 87 fl (80-97); MONOCYTES % (AUTO) 3.7 % (3-13); PLATELET COUNT 164 10^3/uL (150-450); RED CELL DISTRIBUTION WIDTH 15.3 % (11.5-14.0); SEGMENTED NEUTROPHILS % (AUTO) 91.1 % (42-78); TOTAL CELLS COUNTED % (AUTO) 100 %; WHITE BLOOD COUNT 7.9 10^3/uL (4.0-10.5)
[2019-04-14 15:47] LABS: PROTHROMBIN TIME 14.3 SEC (11.4-15.4)
[2019-04-14 16:00] LABS: ALBUMIN 3.6 g/dL (3.5-5.0); ALKALINE PHOSPHATASE 79 U/L (38-126); ASPARTATE AMINO TRANSFERASE 22 U/L (17-59); BILIRUBIN,DIRECT 0.1 mg/dL (0.0-0.4); BILIRUBIN,TOTAL 0.5 mg/dL (0.2-1.3); BLOOD UREA NITROGEN 29 mg/dL (7-20); CALCIUM 9.8 mg/dL (8.4-10.2); CHLORIDE 90 mmol/L (98-107); GLUCOSE 90 mg/dL (75-110); POTASSIUM 4.2 mmol/L (3.6-5.0); TOTAL PROTEIN 6.8 g/dL (6.3-8.2)
--- NOTE | 2019-04-14 16:30 | RADIOLOGY REPORT (SQ) ---
EXAM DESCRIPTION: CHEST SINGLE VIEW COMPLETED DATE/TIME: 04/14/2019 4:21 pm REASON FOR STUDY: sepsis COMPARISON: 11/09/2016 EXAM PARAMETERS: NUMBER OF VIEWS: One view. TECHNIQUE: Single frontal radiographic view of the chest acquired. RADIATION DOSE: NA LIMITATIONS: None. FINDINGS: LUNGS AND PLEURA: The lung monroy are hyperexpanded. Skin folds on the right simulates pn eumothorax. No consolidation or effusions. There is flattening of the hemidiaphragms. MEDIASTINUM AND HILAR STRUCTURES: No masses. Contour normal. HEART AND VASCULAR STRUCTURES: Heart normal in size. Normal vasculature. BONES: No acute findings. HARDWARE: None in the chest. OTHER: No other significant finding. IMPRESSION: COPD. No acute findings. TECHNICAL DOCUMENTATION: JOB ID: [id number] [employer]- All Rights Reserved Reading location - IP/workstation name: [email or web address]
[2019-04-14 16:41] LABS: ANION GAP 9 (5-19)
[2019-04-14 16:43] LABS: CARBON DIOXIDE 42 mmol/L (22-30)
[2019-04-14] MEDS ORDERED: NORMAL SALINE 500 ML IV ONE (17:11)
[2019-04-14] MEDS ORDERED: METHYLPREDNISOLONE INJ 125 MG/2 ML SDV IV ONE (17:38)
[2019-04-14] MEDS ORDERED: IPRATROPIUM/ALBUTEROL 0.5-2.5 MG/3 ML AMPUL NEB ONE (17:38)
[2019-04-14 17:40] LABS: ARTERIAL BLOOD FIO2 100; ARTERIAL BLOOD O2 SATURATION 99.3 % (94-98); ARTERIAL BLOOD PH 7.28 (7.35-7.45)
[2019-04-14 17:41] LABS: ARTERIAL BLOOD BASE EXCESS 14.7 mmol/L; ARTERIAL BLOOD HCO3 44.2 mmol/L (20-24); ARTERIAL BLOOD PO2 227.7 mmHg (80-100); ARTERIAL BLOOD TOTAL CO2 47.2 mmol/L (23-27)
[2019-04-14 17:44] LABS: ARTERIAL BLOOD PCO2 96.3 mmHg (35-45)
[2019-04-14] MEDS ORDERED: PIPERACILLIN/TAZOBACTAM 4.5 GM VIAL IV SCH (18:00)
[2019-04-14] MEDS ORDERED: PIPERACILLIN/TAZOBACTAM 4.5 GM VIAL IV ONE (18:12)
[2019-04-14] MEDS ORDERED: VANCOMYCIN HCL INJ 1000 MG VIAL ONE (19:22)
[2019-04-14 19:31] LABS: APPEARANCE,URINE SLIGHTLY-CLOUDY; BILIRUBIN,URINE NEGATIVE (NEGATIVE); COLOR,URINE YELLOW; GLUCOSE, URINE NEGATIVE (NEGATIVE); KETONES,URINE NEGATIVE (NEGATIVE); PROTEIN,URINE 100 mg/dL (NEGATIVE); URINE SPECIFIC GRAVITY 1.012
[2019-04-14] MEDS ORDERED: ACETAMINOPHEN 325 MG TABLET PO PRN (20:15)
[2019-04-14] MEDS ORDERED: VANCOMYCIN HCL INJ 1000 MG VIAL IV ONE (20:15)
[2019-04-14] MEDS ORDERED: ALBUTEROL SULFATE 0.083% NEB 2.5 MG/3 ML AMPUL NEB PRN (20:15)
[2019-04-14] MEDS ORDERED: INFLUENZA QUAD (6MOS+) 2019-20 VAC 0.5 ML SYR IM ONE (20:52)
[2019-04-14 22:14] LABS: PROTHROMBIN TIME 14.2 SEC (11.4-15.4)
[2019-04-14 22:15] LABS: PARTIAL THROMBOPLASTIN TIME 33.9 SEC (23.5-35.8)
--- NOTE | 2019-04-14 22:20 | PDOC H&P ---
History of Present Illness Admission Date/PCP: 04/14/19 18:20 SIDRA IBARRA MD History of Present Illness: BROCK CAMP is a 78 year old male, He has a history of very severe chronic obstructive pulmonary disease, malnutrition, BPH, chronic diastolic heart failure [facility] for evaluation of fever with a core temperature of 104. Patient is resident of the jail at [place]. In the emergency room he was found to have low blood pressure, he was treated with bolus of normal saline at 30 cc/kg body weight, the chest x-ray was consistent with very severe COPD with flattened diaphragms there was no focal infiltrate to suggest pneumonia, the urinalysis was grossly abnormal suggesting he has UTI, the serum lactic acid level was elevated, he had altered mental status, the arterial blood gas on FiO2 100%, pH 7.28, PCO2 96.3, PO2 227, bicarbonate 44.2, patient respiratory was supported with a noninvasive positive pressure ventilation the presentation is consistent with sepsis syndrome probably from UTI. He has evidence of endorgan dysfunction including encephalopathy, vascular collapse. I saw him in the emergency room history taking was a challenge, patient looks very unkept examination of the feet demonstrated severe onychomycosis of the nail of his feet he has hyperpigmentation of his feet bilaterally, there is suggestion of severe fungal infection of both feet. I felt the pedal pulses in both feet the feet is warm suggesting that there is no vascular insufficiency, he has a history of PAD, I will request arterial Doppler to further evaluate arterial blood flow Past Medical History Cardiac Medical History: Reports: Atrial Fibrillation - paroxysmal, Coronary Artery Disease, Hyperlipidema, Hypertension Pulmonary Medical History: Reports: Asthma, Bronchitis, Chronic Obstructive Pulmonary Disease (COPD), Pneumonia - september 2011, Respiratory Failure Musculoskeltal Medical History: Reports: Arthritis Psychiatric Medical History: Reports: Depression Hematology: Reports: Anemia - chronic Social History Smoking Status: Former Smoker Electronic Cigarette use?: No Frequency of Alcohol Use: None Hx Recreational Drug Use: No Drugs: None Hx Prescription Drug Abuse: No Family History Family History: Reviewed & Not Pertinent Parental Family History Reviewed: Yes Children Family History Reviewed: Yes Sibling(s) Family History Reviewed.: Yes Medication/Allergy Home Medications: Finasteride [Proscar 5 mg Tablet] 5 mg PO DAILY 11/09/16 Montelukast Sodium [Singulair 10 mg Tablet] 10 mg PO QPM 11/09/16 Tamsulosin HCl [Flomax 0.4 mg Cap.sr] 0.8 mg PO QHS 11/09/16 Furosemide [Lasix 40 mg Tablet] 40 mg PO QAM #30 tablet 03/14/17 Apixaban [Eliquis] 5 mg PO DAILY 04/07/19 Diltiazem HCl [Dilacor Xr] 180 mg PO DAILY 04/07/19 Duloxetine HCl [Cymbalta 30 mg Capsule.dr] 30 mg PO DAILY 04/07/19 Fluticasone/Salmeterol [Advair 250-50 Diskus 14 Dose/Diskus] 1 inh IH Q12 04/07/19 Melatonin [Melatonin 3 mg Tablet] 3 mg PO QHS 04/07/19 Mirtazapine [Remeron 15 mg Tablet] 15 mg PO QHS 04/07/19 Omeprazole Magnesium [Prilosec Otc] 20 mg PO DAILY 04/07/19 Potassium Chloride [Klor-Con 10 Meq Tablet ER] 10 meq PO DAILY 04/07/19 Umeclidinium Choudrant [Incruse Ellipta] 62.5 mcg IH DAILY 04/07/19 Acetaminophen [Tylenol 325 mg Tablet] 650 mg PO Q4HP PRN 04/14/19 Acetaminophen [Tylenol 325 mg Tablet] 650 mg PO QHS 04/14/19 Albuterol Sulfate [Proair Hfa Inhalation Aerosol 8.5 gm Mdi] 2 puff IH Q4HP PRN 04/14/19 Difluprednate [Durezol] 5 ml OP QID 04/14/19 Ketorolac Tromethamine [Acular] 1 drop OD QID 04/14/19 Moxifloxacin HCl [Vigamox 0.5% Oph Soln 3 ml] 1 drop OP QID 04/14/19 Multivit-Min/FA/Lycopen/Lutein [Certavite Sr-Antioxidant Tab] 1 each PO DAILY 04/14/19 Roflumilast [Daliresp 500 mcg Tablet] 500 mcg PO DAILY 04/14/19 Allergies/Adverse Reactions: No Known Allergies Allergy (Verified 04/06/19 09:09) Review of Systems ROS unobtainable: Due to mental status Physical Exam Vital Signs: Temp Pulse Resp BP Pulse Ox 102.0 F H 127 H 42 H 115/60 100 04/14/19 16:07 04/14/19 16:07 04/14/19 16:07 04/14/19 16:07 04/14/19 16:07 Intake & Output 04/13/19 04/14/19 04/15/19 06:59 06:59 06:59 Intake Total 1500 Balance 1500 Weight 54.1 kg General appearance: PRESENT: mild distress Eye exam: PRESENT: PERRLA Neck exam: PRESENT: full ROM Respiratory exam: PRESENT: decreased breath sounds Cardiovascular exam: PRESENT: RRR, +S1, +S2 Vascular exam: PRESENT: normal capillary refill GI/Abdominal exam: PRESENT: normal bowel sounds, soft Rectal exam: PRESENT: deferred Neurological exam: PRESENT: alert, CN II-XII grossly intact Psychiatric exam: PRESENT: appropriate affect, normal mood Skin exam: PRESENT: dry, intact, warm. ABSENT: cyanosis, rash Results Laboratory Results: 04/14/19 15:26 04/14/19 15:26 04/14/19 04/14/19 04/14/19 15:26 15:26 15:26 WBC 7.9 RBC 3.20 L Hgb 9.0 L Hct 27.9 L MCV 87 MCH 28.2 MCHC 32.4 RDW 15.3 H Plt Count 164 Seg Neutrophils % 91.1 H Carbonic Acid 2.90 H HCO3/H2CO3 Ratio 15:1 ABG pH 7.28 L ABG pCO2 96.3 H* ABG pO2 227.7 H ABG HCO3 44.2 H ABG O2 Saturation 99.3 H ABG Base Excess 14.7 FiO2 100 Sodium 140.8 Potassium 4.2 Chloride 90 L Carbon Dioxide 42 H* Anion Gap 9 BUN 29 H Creatinine 1.06 Est GFR ( Amer) > 60 Glucose 90 Calcium 9.8 Total Bilirubin 0.5 AST 22 Alkaline Phosphatase 79 Total Protein 6.8 Albumin 3.6 Urine Color Urine Appearance Urine pH Ur Specific [place] Urine Protein Urine Glucose (UA) Urine Ketones Urine Blood Urine RBC (Auto) 04/14/19 19:07 WBC RBC Hgb Hct MCV MCH MCHC RDW Plt Count Seg Neutrophils % Carbonic Acid HCO3/H2CO3 Ratio ABG pH ABG pCO2 ABG pO2 ABG HCO3 ABG O2 Saturation ABG Base Excess FiO2 Sodium Potassium Chloride Carbon Dioxide Anion Gap BUN Creatinine Est GFR ( Amer) Glucose Calcium Total Bilirubin AST Alkaline Phosphatase Total Protein Albumin Urine Color YELLOW Urine Appearance SLIGHTLY-CLOUDY Urine pH 7.0 Ur Specific [place] 1.012 Urine Protein 100 H Urine Glucose (UA) NEGATIVE Urine Ketones NEGATIVE Urine Blood LARGE H Urine RBC (Auto) 24 04/14/19 15:26 Troponin I < 0.012 Impressions: Chest X-Ray 04/14/19 15:17 IMPRESSION: COPD. No acute findings. Assessment & Plan - Diagnosis (1) Sepsis Qualifiers: Sepsis type: sepsis due to unspecified organism Sepsis acute organ dysfunction status: with acute organ dysfunction Severe sepsis acute organ dysfunction type: encephalopathy Severe sepsis shock status: with septic shock Qualified Code(s): A41.9 - Sepsis, unspecified organism; R65.21 - Severe sepsis with septic shock; G93.40 - Encephalopathy, unspecified Is this a current diagnosis for this admission?: Yes Plan: Patient with sepsis syndrome, continue maintenance fluids, start IV antibiotic Zosyn, the source of the sepsis is probably the urine, the urinalysis is grossly abnormal (2) Acute respiratory failure with hypercapnia Is this a current diagnosis for this admission?: Yes Plan: He has acute respiratory acidosis with hypercapnia, he requires noninvasive positive pressure ventilation (3) Chronic obstructive pulmonary disease Is this a current diagnosis for this admission?: Yes (4) Undernutrition syndrome Is this a current diagnosis for this admission?: Yes (5) Urinary tract infection Qualifiers: Urinary tract infection type: site unspecified Hematuria presence: without hematuria Qualified Code(s): N39.0 - Urinary tract infection, site not specified Is this a current diagnosis for this admission?: Yes Plan: This is probably the source of the UTI, start IV antibiotic
[2019-04-14 22:30] LABS: PHOSPHORUS 2.6 mg/dL (2.5-4.5)
--- NOTE | 2019-04-14 22:31 | EKG REPORT ---
SEVERITY:- ABNORMAL ECG - SINUS TACHYCARDIA ANTERIOR INFARCT, AGE INDETERMINATE : Confirmed by: Matilda Gomez 14-Apr-2019 22:31:03
--- NOTE | 2019-04-14 22:32 | EKG REPORT ---
SEVERITY:- ABNORMAL ECG - SINUS TACHYCARDIA ANTERIOR INFARCT, AGE INDETERMINATE : Confirmed by: Matilda Gomez 14-Apr-2019 22:31:38
[2019-04-14 22:43] LABS: CREATINE KINASE MB 0.83 ng/mL (<4.55); TROPONIN I 0.032 ng/mL
[2019-04-14 22:47] LABS: FREE T4 (FREE THYROXINE) 1.4 ng/dL (0.78-2.19)
[2019-04-14 23:01] LABS: THYROID STIMULATING HORMONE 0.83 uIU/mL (0.47-4.68)
[2019-04-15 01:20] LABS: URINE AMPHETAMINES SCREEN NEGATIVE; URINE BARBITURATES SCREEN NEGATIVE; URINE BENZODIAZEPINES SCREEN NEGATIVE; URINE COCAINE SCREEN NEGATIVE; URINE MARIJUANA (THC) SCREEN NEGATIVE; URINE METHADONE SCREEN NEGATIVE; URINE PHENCYCLIDINE SCREEN NEGATIVE
[2019-04-15] MEDS: RINGERS SOLUTION,LACTATED 1,000 ML IV PRN ×2 (03:55→18:27)
[2019-04-15 04:57] LABS: HEMATOCRIT 27.5 % (37.9-51.0); HEMOGLOBIN 8.7 g/dL (13.5-17.0); MEAN CORPUSCULAR HEMOGLOBIN 27.8 pg (27.0-33.4); MEAN CORPUSCULAR HGB CONC 31.8 g/dL (32.0-36.0); MEAN CORPUSCULAR VOLUME 87 fl (80-97); PLATELET COUNT 153 10^3/uL (150-450); RED BLOOD COUNT 3.14 10^6/uL (4.35-5.55); RED CELL DISTRIBUTION WIDTH 15.9 % (11.5-14.0)
[2019-04-15 05:01] LABS: WHITE BLOOD COUNT 16.7 10^3/uL (4.0-10.5)
[2019-04-15 05:08] LABS: ALBUMIN 3.6 g/dL (3.5-5.0); ALKALINE PHOSPHATASE 72 U/L (38-126); ASPARTATE AMINO TRANSFERASE 39 U/L (17-59); BILIRUBIN,DIRECT 0.2 mg/dL (0.0-0.4); BILIRUBIN,TOTAL 0.7 mg/dL (0.2-1.3); BLOOD UREA NITROGEN 30 mg/dL (7-20); CHLORIDE 94 mmol/L (98-107); CHOLESTEROL 209.93 mg/dL (0-200); GLUCOSE 119 mg/dL (75-110); POTASSIUM 4.7 mmol/L (3.6-5.0); TOTAL PROTEIN 6.6 g/dL (6.3-8.2); TRIGLYCERIDES 76 mg/dL (<150)
[2019-04-15 05:14] LABS: ANION GAP 9 (5-19)
[2019-04-15 05:15] LABS: CARBON DIOXIDE 39 mmol/L (22-30)
[2019-04-15 05:19] LABS: DIRECT LDL 65 mg/dL (<100)
[2019-04-15 05:21] LABS: CREATINE KINASE MB 0.91 ng/mL (<4.55); TROPONIN I 0.021 ng/mL
[2019-04-15 05:28] LABS: ABSOLUTE LYMPHOCYTES# (MANUAL) 0.7 10^3/uL (0.5-4.7); ABSOLUTE MONOCYTES # (MANUAL) 1.8 10^3/uL (0.1-1.4); BAND NEUTROPHILS % (MANUAL) 3 % (3-5); BASOPHILS % (MANUAL) 0 % (0-2); EOSINOPHILS % (MANUAL) 0 % (0-6); LYMPHOCYTES % (MANUAL) 4 % (13-45); MONOCYTES % (MANUAL) 11 % (3-13); SEGMENTED NEUTROPHILS % (MAN) 82 % (42-78); TOTAL CELLS COUNTED 100
[2019-04-15 05:31] LABS: ANISOCYTOSIS SLIGHT; HYPOCHROMASIA SLIGHT; OVALOCYTES SLIGHT; PLATELET COMMENT ADEQUATE; POIKILOCYTOSIS SLIGHT; POLYCHROMASIA SLIGHT; TOXIC GRANULATION SLIGHT
[2019-04-15] MEDS ORDERED: PIPERACILLIN/TAZOBACTAM 3.375 GM VIAL IV ONE (05:49)
[2019-04-15] MEDS: PIPERACILLIN SODIUM/TAZOBACTAM 3.375 GM in NORMAL SALINE 100 ML IV SCH ×3 (06:00→18:28)
[2019-04-15 12:19] LABS: CREATINE KINASE MB 0.59 ng/mL (<4.55)
[2019-04-15 12:23] LABS: TROPONIN I 0.016 ng/mL
[2019-04-15] MEDS ORDERED: ALBUTEROL SULFATE HFA (90 MCG/PUFF) 200 PUFF/8.5 GM MDI IH PRN (16:24)
[2019-04-15] MEDS ORDERED: ACETAMINOPHEN 325 MG TABLET PO PRN (16:24)
--- NOTE | 2019-04-15 16:24 | PDOC PROGRESS REPORT ---
Subjective Progress Note for:: 04/15/19 Subjective:: Patient was seen by the bedside, he was admitted yesterday when he presented with sepsis syndrome, the blood culture is positive for E. coli Reason For Visit: SEPSIS, ACUTE RESPIRATORY FAILURE, UTI Physical Exam Vital Signs: Temp Pulse Resp BP Pulse Ox 97.8 F 89 17 99/55 L 100 04/15/19 15:59 04/15/19 15:59 04/15/19 15:59 04/15/19 15:59 04/15/19 15:59 Intake & Output 04/14/19 04/15/19 04/16/19 06:59 06:59 06:59 Intake Total 1600 1100 Balance 1600 1100 Weight 54.1 kg General appearance: PRESENT: no acute distress Eye exam: PRESENT: PERRLA Respiratory exam: PRESENT: clear to auscultation usman Cardiovascular exam: PRESENT: +S1, +S2 GI/Abdominal exam: PRESENT: soft Neurological exam: PRESENT: alert Results Laboratory Results: 04/15/19 03:58 04/15/19 03:58 04/14/19 04/14/19 04/14/19 15:26 15:26 19:07 WBC RBC Hgb Hct MCV MCH MCHC RDW Plt Count Seg Neutrophils % Carbonic Acid 2.90 H HCO3/H2CO3 Ratio 15:1 ABG pH 7.28 L ABG pCO2 96.3 H* ABG pO2 227.7 H ABG HCO3 44.2 H ABG O2 Saturation 99.3 H ABG Base Excess 14.7 FiO2 100 Sodium 140.8 Potassium 4.2 Chloride 90 L Carbon Dioxide 42 H* Anion Gap 9 BUN 29 H Creatinine 1.06 Est GFR ( Amer) > 60 Glucose 90 Calcium 9.8 Phosphorus Magnesium Total Bilirubin 0.5 AST 22 Alkaline Phosphatase 79 Ammonia Total Protein 6.8 Albumin 3.6 Triglycerides Cholesterol LDL Cholesterol Direct VLDL Cholesterol HDL Cholesterol Amylase Lipase TSH Free T4 Urine Color YELLOW Urine Appearance SLIGHTLY-CLOUDY Urine pH 7.0 Ur Specific [place] 1.012 Urine Protein 100 H Urine Glucose (UA) NEGATIVE Urine Ketones NEGATIVE Urine Blood LARGE H Urine RBC (Auto) 24 04/14/19 04/14/19 04/14/19 21:52 21:52 21:52 WBC RBC Hgb Hct MCV MCH MCHC RDW Plt Count Seg Neutrophils % Carbonic Acid HCO3/H2CO3 Ratio ABG pH ABG pCO2 ABG pO2 ABG HCO3 ABG O2 Saturation ABG Base Excess FiO2 Sodium Potassium Chloride Carbon Dioxide Anion Gap BUN Creatinine Est GFR ( Amer) Glucose Calcium Phosphorus 2.6 Magnesium 2.0 Total Bilirubin AST Alkaline Phosphatase Ammonia < 8.7 L Total Protein Albumin Triglycerides Cholesterol LDL Cholesterol Direct VLDL Cholesterol HDL Cholesterol Amylase 144 H Lipase 75.3 TSH 0.83 Free T4 1.40 Urine Color Urine Appearance Urine pH Ur Specific [place] Urine Protein Urine Glucose (UA) Urine Ketones Urine Blood Urine RBC (Auto) 04/15/19 04/15/19 03:58 03:58 WBC 16.7 H D RBC 3.14 L Hgb 8.7 L Hct 27.5 L MCV 87 MCH 27.8 MCHC 31.8 L RDW 15.9 H Plt Count 153 Seg Neutrophils % Not Reportable Carbonic Acid HCO3/H2CO3 Ratio ABG pH ABG pCO2 ABG pO2 ABG HCO3 ABG O2 Saturation ABG Base Excess FiO2 Sodium 142.0 Potassium 4.7 Chloride 94 L Carbon Dioxide 39 H Anion Gap 9 BUN 30 H Creatinine 0.96 Est GFR ( Amer) > 60 Glucose 119 H Calcium 10.0 Phosphorus Magnesium Total Bilirubin 0.7 AST 39 Alkaline Phosphatase 72 Ammonia Total Protein 6.6 Albumin 3.6 Triglycerides 76 Cholesterol 209.93 H LDL Cholesterol Direct 65 VLDL Cholesterol 15.0 HDL Cholesterol 104 Amylase Lipase TSH Free T4 Urine Color Urine Appearance Urine pH Ur Specific [place] Urine Protein Urine Glucose (UA) Urine Ketones Urine Blood Urine RBC (Auto) 04/14/19 16:47 Blood Blood Culture (PCR) - Final Escherichia Coli 04/14/19 04/14/19 04/14/19 15:26 21:52 21:52 Creatine Kinase 66 CK-MB (CK-2) Troponin I < 0.012 NT-Pro-B Natriuret Pep 382 04/14/19 04/15/19 04/15/19 21:52 03:58 03:58 Creatine Kinase 77 CK-MB (CK-2) 0.83 0.91 Troponin I 0.032 0.021 NT-Pro-B Natriuret Pep 04/15/19 04/15/19 11:24 11:24 Creatine Kinase 68 CK-MB (CK-2) 0.59 Troponin I 0.016 NT-Pro-B Natriuret Pep Impressions: Chest X-Ray 04/14/19 15:17 IMPRESSION: COPD. No acute findings. Assessment & Plan - Diagnosis (1) Sepsis Qualifiers: Sepsis type: Escherichia coli Sepsis acute organ dysfunction status: with acute organ dysfunction Severe sepsis acute organ dysfunction type: encephalopathy Severe sepsis shock status: with septic shock Qualified Code(s): A41.51 - Sepsis due to Escherichia coli [E. coli]; R65.21 - Severe sepsis with septic shock; G93.40 - Encephalopathy, unspecified Is this a current diagnosis for this admission?: Yes Plan: Continue present IV antibiotic (2) Acute respiratory failure with hypercapnia Is this a current diagnosis for this admission?: Yes (3) Chronic obstructive pulmonary disease Is this a current diagnosis for this admission?: Yes (4) Undernutrition syndrome Is this a current diagnosis for this admission?: Yes (5) Urinary tract infection Qualifiers: Urinary tract infection type: site unspecified Hematuria presence: without hematuria Qualified Code(s): N39.0 - Urinary tract infection, site not specified Is this a current diagnosis for this admission?: Yes Plan: The urine culture is growing gram-negative michelle, specific pathogen pending - Time Time Spent with patient: 35 or more minutes Level of Care: IMCU
[2019-04-15] MEDS ORDERED: (PENDING PHARMACY ID) (Roflumilast [Daliresp 500 Mcg Tablet] 500 MCG) PO SCH (16:30)
[2019-04-15] MEDS ORDERED: (PENDING PHARMACY ID) (Fluticasone/Salmeterol 1 INH) IH SCH (16:30)
[2019-04-15] MEDS ORDERED: (PENDING PHARMACY ID) (Multivit-Min/Fa/Lycopen/Lutein [Certavite Sr-Antioxidant Tab] 1 EAC PO SCH (16:30)
[2019-04-15] MEDS ORDERED: (PENDING PHARMACY ID) (Difluprednate [Durezol] 5 ML) OP SCH (18:00)
[2019-04-15] MEDS ORDERED: (PENDING PHARMACY ID) (Moxifloxacin Hcl 1 DROP) OP SCH (18:00)
[2019-04-15] MEDS ORDERED: APIXABAN 5 MG PO SCH (18:00)
[2019-04-15] MEDS: MONTELUKAST SODIUM 10 MG TABLET PO SCH (18:27)
[2019-04-15] MEDS: DULOXETINE HCL 30 MG CAPSULE.DR PO SCH (18:27)
[2019-04-15] MEDS: DILTIAZEM HCL 180 MG CAPSULE.CR PO SCH (18:27)
[2019-04-15] MEDS: FINASTERIDE 5 MG TABLET PO SCH (18:28)
--- NOTE | 2019-04-15 21:40 | EKG REPORT ---
SEVERITY:- ABNORMAL ECG - SINUS OR ECTOPIC ATRIAL TACHYCARDIA ANTERIOR INFARCT, AGE INDETERMINATE : Confirmed by: Matilda Gomez 15-Apr-2019 21:39:23
[2019-04-15] MEDS: MIRTAZAPINE 15 MG TABLET PO SCH (22:25)
[2019-04-15] MEDS: TAMSULOSIN HCL 0.4 MG CAP.SR.24H PO SCH (22:25)
[2019-04-15] MEDS: MELATONIN 3 MG TABLET PO SCH (22:25)
[2019-04-15] MEDS: UMECLIDINIUM BROMIDE 62.5 MCG/DOSE IH SCH (22:27)
[2019-04-15] MEDS: TERBINAFINE HCL 250 MG TABLET PO SCH (22:28)
[2019-04-15] MEDS: MOXIFLOXACIN HCL 0.5% OPH SOLN 3 ML OD SCH (22:30)
[2019-04-16] MEDS: PIPERACILLIN SODIUM/TAZOBACTAM 3.375 GM in NORMAL SALINE 100 ML IV SCH ×5 (00:23→23:08)
[2019-04-16] MEDS: RINGERS SOLUTION,LACTATED 1,000 ML IV PRN ×2 (05:24→14:10)
[2019-04-16] MEDS: PANTOPRAZOLE SODIUM 20 MG TABLET.DR PO SCH (05:27)
[2019-04-16 06:39] LABS: HEMATOCRIT 28.9 % (37.9-51.0); HEMOGLOBIN 9.1 g/dL (13.5-17.0); MEAN CORPUSCULAR HEMOGLOBIN 27.7 pg (27.0-33.4); MEAN CORPUSCULAR HGB CONC 31.4 g/dL (32.0-36.0); MEAN CORPUSCULAR VOLUME 88 fl (80-97); PLATELET COUNT 138 10^3/uL (150-450); RED BLOOD COUNT 3.28 10^6/uL (4.35-5.55); RED CELL DISTRIBUTION WIDTH 15.8 % (11.5-14.0); WHITE BLOOD COUNT 14.3 10^3/uL (4.0-10.5)
[2019-04-16 06:57] LABS: ABSOLUTE LYMPHOCYTES# (MANUAL) 0.3 10^3/uL (0.5-4.7); ABSOLUTE MONOCYTES # (MANUAL) 0.4 10^3/uL (0.1-1.4); BAND NEUTROPHILS % (MANUAL) 5 % (3-5); BASOPHILS % (MANUAL) 0 % (0-2); EOSINOPHILS % (MANUAL) 0 % (0-6); LYMPHOCYTES % (MANUAL) 2 % (13-45); MONOCYTES % (MANUAL) 3 % (3-13); SEGMENTED NEUTROPHILS % (MAN) 90 % (42-78); TOTAL CELLS COUNTED 100
[2019-04-16 06:58] LABS: ANISOCYTOSIS SLIGHT; PLATELET COMMENT DECREASED; TOXIC VACUOLATION PRESENT
[2019-04-16] MEDS: FLUTICASONE/VILANTEROL 200-25 MCG/DOSE IH SCH (09:35)
[2019-04-16] MEDS: DILTIAZEM HCL 180 MG CAPSULE.CR PO SCH ×2 (09:35→09:41)
[2019-04-16] MEDS: DULOXETINE HCL 30 MG CAPSULE.DR PO SCH ×2 (09:35→09:41)
[2019-04-16] MEDS: ROFLUMILAST 500 MCG TABLET PO SCH ×2 (09:35→09:42)
[2019-04-16] MEDS: TERBINAFINE HCL 250 MG TABLET PO SCH ×2 (09:35→09:42)
[2019-04-16] MEDS: APIXABAN 5 MG TABLET PO SCH ×3 (09:35→18:24)
[2019-04-16] MEDS: FINASTERIDE 5 MG TABLET PO SCH ×2 (09:35→09:42)
[2019-04-16] MEDS: UMECLIDINIUM BROMIDE 62.5 MCG/DOSE IH SCH (09:36)
[2019-04-16] MEDS: MOXIFLOXACIN HCL 0.5% OPH SOLN 3 ML OD SCH ×4 (09:36→21:20)
--- NOTE | 2019-04-16 11:44 | XCELERA REPORT ---
[address] [address] Lower Extremity Arterial Evaluation Name: BROCK CAMP Age: 78 yrs Gender: Male : 1940 Patient Status: Inpatient Patient Location: [place] [id number] Study Date: 04/14/2019 08:44 PM Procedure: A color flow and duplex scan of the lower extremity arteries was performed bilaterally with velocity and waveform anaylsis. Reason For Study: PAD Ordering Physician: SIDRA IBARRA Performed By: Lala Cooper Measurements and Calculations Right Left AUDIO VISUAL ENGINEER PSV 54.6 72.0 cm/sec Prox PFA PSV 78.1 -71.2 cm/sec Prox SFA PSV 88.2 -85.2 cm/sec Mid SFA PSV -95.9 -88.2 cm/sec Dist SFA PSV -61.7 -58.7 cm/sec Prox Pop A PSV -40.9 -41.9 cm/sec Mid MAURICE PSV 49.7 40.2 cm/sec Mid COURT ABSTRACTOR PSV -43.1 -31.9 cm/sec Benjy Pedis PSV -34.9 -40.2 cm/sec Right Side Arterial Evaluation Normal velocity and triphasic waveforms noted from the Common Femoral artery to the Popliteal. Biphasic with low normal velocity in the infrageniculate arteries. Ankle Brachial index not done. Left Side Arterial Evaluation Normal velocity and triphasic waveforms noted from the Common Femoral artery to the Popliteal. Biphasic with low normal velocity in the infrageniculate arteries. Ankle Brachial index not done. Interpretation Summary Mild hemodynamically significant lesions in the bilateral lower extremities, on duplex imaging, at rest. Duplex findings are of slight changes in the infrageniculate arteries, bilaterally. This may not have much clinical significance. : SIDRA IBARRA > Royce Florian
[2019-04-16] MEDS: MONTELUKAST SODIUM 10 MG TABLET PO SCH (18:24)
[2019-04-16] MEDS ORDERED: DILTIAZEM HCL/D5W 125 MG/125 ML RTUINJ IV PRN (20:34)
--- NOTE | 2019-04-16 20:44 | PDOC PROGRESS REPORT ---
Subjective Progress Note for:: 04/16/19 Subjective:: Patient seen by the bedside, he has underlining atrial fibrillation presently there is rapid ventricular rate, he is also tachypneic, requiring noninvasive positive pressure ventilation Reason For Visit: SEPSIS, ACUTE RESPIRATORY FAILURE, UTI Physical Exam Vital Signs: Temp Pulse Resp BP Pulse Ox 98.5 F 116 H 18 125/70 96 04/16/19 14:54 04/16/19 19:00 04/16/19 14:54 04/16/19 14:54 04/16/19 14:54 Intake & Output 04/15/19 04/16/19 04/17/19 06:59 06:59 06:59 Intake Total 1600 2800 1697 Output Total 0 Balance 1600 2800 1697 Weight 54.1 kg 55.9 kg General appearance: PRESENT: mild distress Eye exam: PRESENT: PERRLA Respiratory exam: PRESENT: decreased breath sounds Cardiovascular exam: PRESENT: +S1, +S2, tachycardia GI/Abdominal exam: PRESENT: soft Neurological exam: PRESENT: alert, CN II-XII grossly intact Results Laboratory Results: 04/16/19 06:28 04/15/19 03:58 04/16/19 06:28 WBC 14.3 H RBC 3.28 L Hgb 9.1 L Hct 28.9 L MCV 88 MCH 27.7 MCHC 31.4 L RDW 15.8 H Plt Count 138 L Seg Neutrophils % Not Reportable 04/14/19 16:47 Blood Blood Culture (PCR) - Final Escherichia Coli 04/14/19 04/14/19 04/14/19 15:26 21:52 21:52 Creatine Kinase 66 CK-MB (CK-2) Troponin I < 0.012 NT-Pro-B Natriuret Pep 382 04/14/19 04/15/19 04/15/19 21:52 03:58 03:58 Creatine Kinase 77 CK-MB (CK-2) 0.83 0.91 Troponin I 0.032 0.021 NT-Pro-B Natriuret Pep 04/15/19 04/15/19 11:24 11:24 Creatine Kinase 68 CK-MB (CK-2) 0.59 Troponin I 0.016 NT-Pro-B Natriuret Pep Impressions: Chest X-Ray 04/14/19 15:17 IMPRESSION: COPD. No acute findings. Assessment & Plan - Diagnosis (1) Sepsis Qualifiers: Sepsis type: Escherichia coli Sepsis acute organ dysfunction status: with acute organ dysfunction Severe sepsis acute organ dysfunction type: encephalopathy Severe sepsis shock status: with septic shock Qualified Code(s): A41.51 - Sepsis due to Escherichia coli [E. coli]; R65.21 - Severe sepsis with septic shock; G93.40 - Encephalopathy, unspecified Is this a current diagnosis for this admission?: Yes Plan: She has E. coli septicemia, the sensitivity of the bacteria is not back presently empirically on intravenous Zosyn (2) Acute respiratory failure with hypercapnia Is this a current diagnosis for this admission?: Yes Plan: Patient presently requiring noninvasive positive pressure ventilation, BiPAP (3) Chronic obstructive pulmonary disease Is this a current diagnosis for this admission?: Yes (4) Undernutrition syndrome Is this a current diagnosis for this admission?: Yes (5) Urinary tract infection Qualifiers: Urinary tract infection type: site unspecified Hematuria presence: without hematuria Qualified Code(s): N39.0 - Urinary tract infection, site not specified Is this a current diagnosis for this admission?: Yes (6) Atrial fibrillation with RVR Is this a current diagnosis for this admission?: Yes Plan: He has atrial fibrillation with rapid regular response, start Cardizem infusion - Time Time Spent with patient: 25-34 minutes
[2019-04-16] MEDS ORDERED: DILTIAZEM HCL INJ 25 MG/5 ML VIAL ONE ×2 (21:15→21:42)
[2019-04-16] MEDS: MELATONIN 3 MG TABLET PO SCH (21:20)
[2019-04-16] MEDS: MIRTAZAPINE 15 MG TABLET PO SCH (21:21)
[2019-04-16] MEDS: TAMSULOSIN HCL 0.4 MG CAP.SR.24H PO SCH (21:21)
[2019-04-17 05:28] LABS: ABSOLUTE LYMPHOCYTES (AUTO) 0.5 10^3/uL (0.5-4.7); ABSOLUTE MONOCYTES (AUTO) 0.5 10^3/uL (0.1-1.4); ABSOLUTE NEUT (AUTO) 7.4 10^3/uL (1.7-8.2); BASOPHILS % (AUTO) 0.1 % (0-2); EOSINOPHILS % (AUTO) 0.4 % (0-6); HEMATOCRIT 26.1 % (37.9-51.0); HEMOGLOBIN 8.4 g/dL (13.5-17.0); LYMPHOCYTES % (AUTO) 5.6 % (13-45); MEAN CORPUSCULAR HEMOGLOBIN 28.3 pg (27.0-33.4); MEAN CORPUSCULAR HGB CONC 32.2 g/dL (32.0-36.0); MEAN CORPUSCULAR VOLUME 88 fl (80-97); PLATELET COUNT 113 10^3/uL (150-450); RED BLOOD COUNT 2.96 10^6/uL (4.35-5.55); RED CELL DISTRIBUTION WIDTH 15.7 % (11.5-14.0); SEGMENTED NEUTROPHILS % (AUTO) 87.9 % (42-78); TOTAL CELLS COUNTED % (AUTO) 100 %; WHITE BLOOD COUNT 8.5 10^3/uL (4.0-10.5)
[2019-04-17] MEDS: PANTOPRAZOLE SODIUM 20 MG TABLET.DR PO SCH (06:20)
[2019-04-17] MEDS: PIPERACILLIN SODIUM/TAZOBACTAM 3.375 GM in NORMAL SALINE 100 ML IV SCH ×3 (06:20→18:00)
[2019-04-17] MEDS: APIXABAN 5 MG TABLET PO SCH ×2 (09:46→18:00)
[2019-04-17] MEDS: FINASTERIDE 5 MG TABLET PO SCH (09:46)
[2019-04-17] MEDS: DULOXETINE HCL 30 MG CAPSULE.DR PO SCH (09:47)
[2019-04-17] MEDS: DILTIAZEM HCL 180 MG CAPSULE.CR PO SCH (09:47)
[2019-04-17] MEDS: ROFLUMILAST 500 MCG TABLET PO SCH (09:47)
[2019-04-17] MEDS: FLUTICASONE/VILANTEROL 200-25 MCG/DOSE IH SCH (09:48)
[2019-04-17] MEDS: TERBINAFINE HCL 250 MG TABLET PO SCH (09:48)
[2019-04-17] MEDS: MOXIFLOXACIN HCL 0.5% OPH SOLN 3 ML OD SCH ×4 (09:48→23:02)
[2019-04-17] MEDS: UMECLIDINIUM BROMIDE 62.5 MCG/DOSE IH SCH (09:48)
[2019-04-17] MEDS: MONTELUKAST SODIUM 10 MG TABLET PO SCH (18:00)
[2019-04-17] MEDS: ERTAPENEM SODIUM 1 GM in NORMAL SALINE 50 ML IV SCH (23:01)
[2019-04-17] MEDS: TAMSULOSIN HCL 0.4 MG CAP.SR.24H PO SCH (23:01)
[2019-04-17] MEDS: MIRTAZAPINE 15 MG TABLET PO SCH (23:01)
[2019-04-17] MEDS: MELATONIN 3 MG TABLET PO SCH (23:02)
--- NOTE | 2019-04-17 23:57 | PDOC PROGRESS REPORT ---
Subjective Progress Note for:: 04/17/19 Subjective:: Patient seen by the bedside, the blood culture grew ESBL E. coli as well as urine culture Reason For Visit: SEPSIS, ACUTE RESPIRATORY FAILURE, UTI Physical Exam Vital Signs: Temp Pulse Resp BP Pulse Ox 97.7 F 90 18 127/59 H 100 04/17/19 17:18 04/17/19 19:00 04/17/19 17:18 04/17/19 17:18 04/17/19 17:18 Intake & Output 04/16/19 04/17/19 04/18/19 06:59 06:59 06:59 Intake Total 2800 2087 350 Output Total 0 500 400 Balance 2800 1587 -50 Weight 55.9 kg 58.5 kg 58.5 kg General appearance: PRESENT: mild distress Eye exam: PRESENT: PERRLA Respiratory exam: PRESENT: clear to auscultation usman Cardiovascular exam: PRESENT: +S1, +S2 GI/Abdominal exam: PRESENT: soft Neurological exam: PRESENT: alert Results Laboratory Results: 04/17/19 04:55 04/15/19 03:58 04/17/19 04:55 WBC 8.5 RBC 2.96 L Hgb 8.4 L Hct 26.1 L MCV 88 MCH 28.3 MCHC 32.2 RDW 15.7 H Plt Count 113 L Seg Neutrophils % 87.9 H 04/14/19 19:07 Clean Catch Midstream Urine Culture - Final Escherichia Coli Esbl 04/14/19 16:47 Blood Blood Culture (PCR) - Final Escherichia Coli 04/14/19 16:47 Blood Blood Culture - Final Escherichia Coli Esbl 04/14/19 15:26 Blood Blood Culture - Final Escherichia Coli Esbl 04/14/19 04/14/19 04/14/19 15:26 21:52 21:52 Creatine Kinase 66 CK-MB (CK-2) Troponin I < 0.012 NT-Pro-B Natriuret Pep 382 04/14/19 04/15/19 04/15/19 21:52 03:58 03:58 Creatine Kinase 77 CK-MB (CK-2) 0.83 0.91 Troponin I 0.032 0.021 NT-Pro-B Natriuret Pep 04/15/19 04/15/19 11:24 11:24 Creatine Kinase 68 CK-MB (CK-2) 0.59 Troponin I 0.016 NT-Pro-B Natriuret Pep Impressions: Chest X-Ray 04/14/19 15:17 IMPRESSION: COPD. No acute findings. Assessment & Plan - Diagnosis (1) Sepsis Qualifiers: Sepsis type: Escherichia coli Sepsis acute organ dysfunction status: with acute organ dysfunction Severe sepsis acute organ dysfunction type: encephalopathy Severe sepsis shock status: with septic shock Qualified Code(s): A41.51 - Sepsis due to Escherichia coli [E. coli]; R65.21 - Severe sepsis with septic shock; G93.40 - Encephalopathy, unspecified Is this a current diagnosis for this admission?: Yes Plan: He has ESBL E. coli, DC IV Zosyn, start IV ertapenem (2) Acute respiratory failure with hypercapnia Is this a current diagnosis for this admission?: Yes (3) Chronic obstructive pulmonary disease Is this a current diagnosis for this admission?: Yes (4) Undernutrition syndrome Is this a current diagnosis for this admission?: Yes (5) Urinary tract infection Qualifiers: Urinary tract infection type: site unspecified Hematuria presence: without hematuria Qualified Code(s): N39.0 - Urinary tract infection, site not specified Is this a current diagnosis for this admission?: Yes (6) Atrial fibrillation with RVR Is this a current diagnosis for this admission?: Yes - Time Time Spent with patient: 35 or more minutes
[2019-04-18] MEDS: PANTOPRAZOLE SODIUM 20 MG TABLET.DR PO SCH (05:26)
[2019-04-18] MEDS: RINGERS SOLUTION,LACTATED 1,000 ML IV PRN ×2 (09:08→19:35)
[2019-04-18] MEDS: APIXABAN 5 MG TABLET PO SCH ×2 (10:36→18:06)
[2019-04-18] MEDS: DILTIAZEM HCL 180 MG CAPSULE.CR PO SCH (10:36)
[2019-04-18] MEDS: ROFLUMILAST 500 MCG TABLET PO SCH (10:36)
[2019-04-18] MEDS: FINASTERIDE 5 MG TABLET PO SCH (10:36)
[2019-04-18] MEDS: DULOXETINE HCL 30 MG CAPSULE.DR PO SCH (10:36)
[2019-04-18] MEDS: UMECLIDINIUM BROMIDE 62.5 MCG/DOSE IH SCH (10:37)
[2019-04-18] MEDS: MOXIFLOXACIN HCL 0.5% OPH SOLN 3 ML OD SCH ×3 (10:37→22:58)
[2019-04-18] MEDS: TERBINAFINE HCL 250 MG TABLET PO SCH (10:37)
[2019-04-18] MEDS: FLUTICASONE/VILANTEROL 200-25 MCG/DOSE IH SCH (10:37)
[2019-04-18] MEDS: MONTELUKAST SODIUM 10 MG TABLET PO SCH (18:06)
--- NOTE | 2019-04-18 19:48 | PDOC PROGRESS REPORT ---
Subjective Progress Note for:: 04/18/19 Subjective:: Patient was admitted for the management of ESBL E. coli septicemia, stenosis stated that he has very poor intake, patient is not communicating effectively, he has lost so much weight with no muscle mass, the lower extremity is somewhat contracted partly due to nonuse atrophy. Reason For Visit: SEPSIS, ACUTE RESPIRATORY FAILURE, UTI Physical Exam Vital Signs: Temp Pulse Resp BP Pulse Ox 97.5 F 99 19 150/72 H 99 04/18/19 14:33 04/18/19 14:33 04/18/19 16:26 04/18/19 14:33 04/18/19 14:33 Intake & Output 04/17/19 04/18/19 04/19/19 06:59 06:59 06:59 Intake Total 3087 650 285 Output Total 500 400 Balance 2587 250 285 Weight 58.5 kg 59.1 kg General appearance: PRESENT: no acute distress Eye exam: PRESENT: PERRLA Respiratory exam: PRESENT: clear to auscultation usman Cardiovascular exam: PRESENT: irregular rhythm, +S1, +S2 GI/Abdominal exam: PRESENT: soft Extremities exam: PRESENT: other - Contracted extremities Neurological exam: PRESENT: alert Results Laboratory Results: 04/17/19 04:55 04/15/19 03:58 04/14/19 04/14/19 04/14/19 15:26 21:52 21:52 Creatine Kinase 66 CK-MB (CK-2) Troponin I < 0.012 NT-Pro-B Natriuret Pep 382 04/14/19 04/15/19 04/15/19 21:52 03:58 03:58 Creatine Kinase 77 CK-MB (CK-2) 0.83 0.91 Troponin I 0.032 0.021 NT-Pro-B Natriuret Pep 04/15/19 04/15/19 11:24 11:24 Creatine Kinase 68 CK-MB (CK-2) 0.59 Troponin I 0.016 NT-Pro-B Natriuret Pep Impressions: Chest X-Ray 04/14/19 15:17 IMPRESSION: COPD. No acute findings. Assessment & Plan - Diagnosis (1) Sepsis Qualifiers: Sepsis type: Escherichia coli Sepsis acute organ dysfunction status: with acute organ dysfunction Severe sepsis acute organ dysfunction type: encephalopathy Severe sepsis shock status: with septic shock Qualified Code(s): A41.51 - Sepsis due to Escherichia coli [E. coli]; R65.21 - Severe sepsis with septic shock; G93.40 - Encephalopathy, unspecified Is this a current diagnosis for this admission?: Yes Plan: Continue IV antibiotic with ertapenem (2) Acute respiratory failure with hypercapnia Is this a current diagnosis for this admission?: Yes Plan: Patient continues to require noninvasive positive pressure ventilation, BiPAP (3) Chronic obstructive pulmonary disease Is this a current diagnosis for this admission?: Yes (4) Undernutrition syndrome Is this a current diagnosis for this admission?: Yes (5) Urinary tract infection Qualifiers: Urinary tract infection type: site unspecified Hematuria presence: without hematuria Qualified Code(s): N39.0 - Urinary tract infection, site not speci fied Is this a current diagnosis for this admission?: Yes (6) Atrial fibrillation with RVR Is this a current diagnosis for this admission?: Yes Plan: Presently rate controlled - Time Time Spent with patient: 35 or more minutes Level of Care: IMCU
[2019-04-18] MEDS: TAMSULOSIN HCL 0.4 MG CAP.SR.24H PO SCH (22:57)
[2019-04-18] MEDS: MIRTAZAPINE 15 MG TABLET PO SCH (22:58)
[2019-04-18] MEDS: ERTAPENEM SODIUM 1 GM in NORMAL SALINE 50 ML IV SCH (22:58)
[2019-04-18] MEDS: MELATONIN 3 MG TABLET PO SCH (22:58)
[2019-04-19] MEDS: RINGERS SOLUTION,LACTATED 1,000 ML IV PRN (05:56)
[2019-04-19] MEDS: PANTOPRAZOLE SODIUM 20 MG TABLET.DR PO SCH (05:56)
[2019-04-19] MEDS: UMECLIDINIUM BROMIDE 62.5 MCG/DOSE IH SCH (09:20)
[2019-04-19] MEDS: MOXIFLOXACIN HCL 0.5% OPH SOLN 3 ML OD SCH ×4 (09:20→23:49)
[2019-04-19] MEDS: FINASTERIDE 5 MG TABLET PO SCH (09:20)
[2019-04-19] MEDS: APIXABAN 5 MG TABLET PO SCH ×2 (09:20→16:59)
[2019-04-19] MEDS: TERBINAFINE HCL 250 MG TABLET PO SCH (09:20)
[2019-04-19] MEDS: ROFLUMILAST 500 MCG TABLET PO SCH (09:20)
[2019-04-19] MEDS: DILTIAZEM HCL 180 MG CAPSULE.CR PO SCH (09:20)
[2019-04-19] MEDS: FLUTICASONE/VILANTEROL 200-25 MCG/DOSE IH SCH (09:20)
[2019-04-19] MEDS: DULOXETINE HCL 30 MG CAPSULE.DR PO SCH (09:20)
--- NOTE | 2019-04-19 15:16 | PDOC PROGRESS REPORT ---
Subjective Progress Note for:: 04/19/19 Subjective:: Patient seen by the bedside, condition remains poor but stable overall prognosis is poor,The nurse said patient is agitated Reason For Visit: SEPSIS, ACUTE RESPIRATORY FAILURE, UTI Physical Exam Vital Signs: Temp Pulse Resp BP Pulse Ox 97.5 F 112 H 19 139/91 H 100 04/19/19 07:35 04/19/19 14:00 04/19/19 03:41 04/19/19 07:35 04/19/19 07:35 Intake & Output 04/18/19 04/19/19 04/20/19 06:59 06:59 06:59 Intake Total 650 2335 120 Output Total 400 400 Balance 250 2335 -280 Weight 59.1 kg 58.6 kg General appearance: PRESENT: no acute distress Eye exam: PRESENT: PERRLA Respiratory exam: PRESENT: clear to auscultation usman Cardiovascular exam: PRESENT: +S1, +S2 GI/Abdominal exam: PRESENT: soft Neurological exam: PRESENT: alert Results Laboratory Results: 04/17/19 04:55 04/15/19 03:58 04/14/19 04/14/19 04/14/19 15:26 21:52 21:52 Creatine Kinase 66 CK-MB (CK-2) Troponin I < 0.012 NT-Pro-B Natriuret Pep 382 04/14/19 04/15/19 04/15/19 21:52 03:58 03:58 Creatine Kinase 77 CK-MB (CK-2) 0.83 0.91 Troponin I 0.032 0.021 NT-Pro-B Natriuret Pep 04/15/19 04/15/19 11:24 11:24 Creatine Kinase 68 CK-MB (CK-2) 0.59 Troponin I 0.016 NT-Pro-B Natriuret Pep Impressions: Chest X-Ray 04/14/19 15:17 IMPRESSION: COPD. No acute findings. Assessment & Plan - Diagnosis (1) Sepsis Qualifiers: Sepsis type: Escherichia coli Sepsis acute organ dysfunction status: with acute organ dysfunction Severe sepsis acute organ dysfunction type: encephalopathy Severe sepsis shock status: with septic shock Qualified Code(s): A41.51 - Sepsis due to Escherichia coli [E. coli]; R65.21 - Severe sepsis with septic shock; G93.40 - Encephalopathy, unspecified Is this a current diagnosis for this admission?: Yes Plan: Continue intravenous ertapenem (2) Acute respiratory failure with hypercapnia Is this a current diagnosis for this admission?: Yes (3) Chronic obstructive pulmonary disease Is this a current diagnosis for this admission?: Yes (4) Undernutrition syndrome Is this a current diagnosis for this admission?: Yes (5) Urinary tract infection Qualifiers: Urinary tract infection type: site unspecified Hematuria presence: without hematuria Qualified Code(s): N39.0 - Urinary tract infection, site not specified Is this a current diagnosis for this admission?: Yes (6) Atrial fibrillation with RVR Is this a current diagnosis for this admission?: Yes (7) Anxiety Is this a current diagnosis for this admission?: Yes Plan: start buspirone - Time Time Spent with patient: 25-34 minutes
[2019-04-19 15:51] LABS: ABSOLUTE LYMPHOCYTES (AUTO) 0.2 10^3/uL (0.5-4.7); ABSOLUTE MONOCYTES (AUTO) 0.3 10^3/uL (0.1-1.4); ABSOLUTE NEUT (AUTO) 2.2 10^3/uL (1.7-8.2); BASOPHILS % (AUTO) 0.1 % (0-2); EOSINOPHILS % (AUTO) 0.1 % (0-6); HEMATOCRIT 25.2 % (37.9-51.0); LYMPHOCYTES % (AUTO) 7.2 % (13-45); MEAN CORPUSCULAR HGB CONC 31.5 g/dL (32.0-36.0); MEAN CORPUSCULAR VOLUME 89 fl (80-97); MONOCYTES % (AUTO) 11.1 % (3-13); RED BLOOD COUNT 2.84 10^6/uL (4.35-5.55); RED CELL DISTRIBUTION WIDTH 15.4 % (11.5-14.0); SEGMENTED NEUTROPHILS % (AUTO) 81.5 % (42-78); TOTAL CELLS COUNTED % (AUTO) 100 %
[2019-04-19 16:13] LABS: ALBUMIN 2.9 g/dL (3.5-5.0); ALKALINE PHOSPHATASE 52 U/L (38-126); ASPARTATE AMINO TRANSFERASE 15 U/L (17-59); BILIRUBIN,DIRECT 0.2 mg/dL (0.0-0.4); BILIRUBIN,TOTAL 0.5 mg/dL (0.2-1.3); BLOOD UREA NITROGEN 11 mg/dL (7-20); CALCIUM 10.7 mg/dL (8.4-10.2); CHLORIDE 100 mmol/L (98-107); GLUCOSE 99 mg/dL (75-110); POTASSIUM 4.1 mmol/L (3.6-5.0); TOTAL PROTEIN 5.7 g/dL (6.3-8.2)
[2019-04-19 16:15] LABS: PLATELET COUNT 82 10^3/uL (150-450); WHITE BLOOD COUNT 2.7 10^3/uL (4.0-10.5)
[2019-04-19 16:17] LABS: HEMOGLOBIN 7.9 g/dL (13.5-17.0)
[2019-04-19 16:24] LABS: CARBON DIOXIDE 45 mmol/L (22-30)
[2019-04-19 16:26] LABS: ANION GAP 2 (5-19)
[2019-04-19] MEDS: BUSPIRONE HCL 10 MG TABLET PO SCH ×2 (16:52→23:49)
[2019-04-19] MEDS: MONTELUKAST SODIUM 10 MG TABLET PO SCH (17:00)
[2019-04-19] MEDS: MIRTAZAPINE 15 MG TABLET PO SCH (23:49)
[2019-04-19] MEDS: TAMSULOSIN HCL 0.4 MG CAP.SR.24H PO SCH (23:49)
[2019-04-19] MEDS: ERTAPENEM SODIUM 1 GM in NORMAL SALINE 50 ML IV SCH (23:49)
[2019-04-19] MEDS: MELATONIN 3 MG TABLET PO SCH (23:52)
[2019-04-20 05:16] LABS: ABSOLUTE LYMPHOCYTES (AUTO) 0.4 10^3/uL (0.5-4.7); ABSOLUTE MONOCYTES (AUTO) 0.4 10^3/uL (0.1-1.4); ABSOLUTE NEUT (AUTO) 3.3 10^3/uL (1.7-8.2); BASOPHILS % (AUTO) 0.2 % (0-2); EOSINOPHILS % (AUTO) 0.3 % (0-6); HEMATOCRIT 31.9 % (37.9-51.0); LYMPHOCYTES % (AUTO) 9.6 % (13-45); MEAN CORPUSCULAR HEMOGLOBIN 28.2 pg (27.0-33.4); MEAN CORPUSCULAR HGB CONC 32.7 g/dL (32.0-36.0); MEAN CORPUSCULAR VOLUME 86 fl (80-97); RED CELL DISTRIBUTION WIDTH 15.2 % (11.5-14.0); SEGMENTED NEUTROPHILS % (AUTO) 79.9 % (42-78); TOTAL CELLS COUNTED % (AUTO) 100 %; WHITE BLOOD COUNT 4.2 10^3/uL (4.0-10.5)
[2019-04-20 05:31] LABS: ALKALINE PHOSPHATASE 56 U/L (38-126); ASPARTATE AMINO TRANSFERASE 18 U/L (17-59); BILIRUBIN,DIRECT 0.2 mg/dL (0.0-0.4); BILIRUBIN,TOTAL 0.8 mg/dL (0.2-1.3); BLOOD UREA NITROGEN 11 mg/dL (7-20); CALCIUM 10.9 mg/dL (8.4-10.2); CHLORIDE 100 mmol/L (98-107); GLUCOSE 85 mg/dL (75-110); POTASSIUM 4.1 mmol/L (3.6-5.0); TOTAL PROTEIN 5.8 g/dL (6.3-8.2)
[2019-04-20] MEDS: PANTOPRAZOLE SODIUM 20 MG TABLET.DR PO SCH (05:34)
[2019-04-20 05:51] LABS: HEMOGLOBIN 10.4 g/dL (13.5-17.0); PLATELET COUNT 91 10^3/uL (150-450)
[2019-04-20 06:02] LABS: ANION GAP 5 (5-19)
[2019-04-20 06:06] LABS: CARBON DIOXIDE 42 mmol/L (22-30)
[2019-04-20] MEDS: DILTIAZEM HCL 180 MG CAPSULE.CR PO SCH ×2 (09:36→13:46)
[2019-04-20] MEDS: FINASTERIDE 5 MG TABLET PO SCH (09:36)
[2019-04-20] MEDS: BUSPIRONE HCL 10 MG TABLET PO SCH ×2 (09:37→23:35)
[2019-04-20] MEDS: DULOXETINE HCL 30 MG CAPSULE.DR PO SCH (09:37)
[2019-04-20] MEDS: ROFLUMILAST 500 MCG TABLET PO SCH (09:37)
[2019-04-20] MEDS: MOXIFLOXACIN HCL 0.5% OPH SOLN 3 ML OD SCH ×4 (09:37→22:09)
[2019-04-20] MEDS: APIXABAN 5 MG TABLET PO SCH ×2 (09:37→18:51)
[2019-04-20] MEDS: TERBINAFINE HCL 250 MG TABLET PO SCH (09:37)
[2019-04-20] MEDS: FLUTICASONE/VILANTEROL 200-25 MCG/DOSE IH SCH (09:38)
[2019-04-20] MEDS: UMECLIDINIUM BROMIDE 62.5 MCG/DOSE IH SCH (09:38)
[2019-04-20] MEDS: MONTELUKAST SODIUM 10 MG TABLET PO SCH (18:51)
--- NOTE | 2019-04-20 20:36 | PDOC PROGRESS REPORT ---
Subjective Subjective:: Patient seen by the bedside, he continues to require noninvasive positive pressure ventilation, BiPAP, he was transfused with 2 units of packed red blood cells Reason For Visit: SEPSIS, ACUTE RESPIRATORY FAILURE, UTI Physical Exam Vital Signs: Temp Pulse Resp BP Pulse Ox 97.9 F 105 H 33 H 156/75 H 100 04/20/19 16:42 04/20/19 16:42 04/20/19 16:42 04/20/19 16:42 04/20/19 16:42 Intake & Output 04/19/19 04/20/19 04/21/19 06:59 06:59 06:59 Intake Total 2335 2050 118 Output Total 400 Balance 2335 1650 118 Weight 58.6 kg 59.2 kg 59.2 kg General appearance: PRESENT: no acute distress Eye exam: PRESENT: PERRLA Respiratory exam: PRESENT: clear to auscultation usman Cardiovascular exam: PRESENT: +S1, +S2 GI/Abdominal exam: PRESENT: soft Neurological exam: PRESENT: alert, CN II-XII grossly intact Results Laboratory Results: 04/20/19 04:19 04/20/19 04:19 04/19/19 04/20/19 04/20/19 16:58 04:19 04:19 WBC 4.2 RBC 3.70 L Hgb 10.4 L D Hct 31.9 L MCV 86 MCH 28.2 MCHC 32.7 RDW 15.2 H Plt Count 91 L Seg Neutrophils % 79.9 H Sodium 146.6 H Potassium 4.1 Chloride 100 Carbon Dioxide 42 H* Anion Gap 5 BUN 11 Creatinine 0.63 Est GFR ( Amer) > 60 Glucose 85 Calcium 10.9 H Total Bilirubin 0.8 AST 18 Alkaline Phosphatase 56 Total Protein 5.8 L Albumin 3.0 L Blood Type O POSITIVE Antibody Screen NEGATIVE 04/14/19 04/14/19 04/14/19 15:26 21:52 21:52 Creatine Kinase 66 CK-MB (CK-2) Troponin I < 0.012 NT-Pro-B Natriuret Pep 382 04/14/19 04/15/19 04/15/19 21:52 03:58 03:58 Creatine Kinase 77 CK-MB (CK-2) 0.83 0.91 Troponin I 0.032 0.021 NT-Pro-B Natriuret Pep 04/15/19 04/15/19 11:24 11:24 Creatine Kinase 68 CK-MB (CK-2) 0.59 Troponin I 0.016 NT-Pro-B Natriuret Pep Impressions: Chest X-Ray 04/14/19 15:17 IMPRESSION: COPD. No acute findings. Assessment & Plan - Diagnosis (1) Sepsis Qualifiers: Sepsis type: Escherichia coli Sepsis acute organ dysfunction status: with acute organ dysfunction Severe sepsis acute organ dysfunction type: encephalopathy Severe sepsis shock status: with septic shock Qualified Code(s): A41.51 - Sepsis due to Escherichia coli [E. coli]; R65.21 - Severe sepsis with septic shock; G93.40 - Encephalopathy, unspecified Is this a current diagnosis for this admission?: Yes Plan: Continue IV antibiotic (2) Acute respiratory failure with hypercapnia Is this a current diagnosis for this admission?: Yes Plan: Continue BiPAP (3) Chronic obstructive pulmonary disease Is this a current diagnosis for this admission?: Yes (4) Undernutrition syndrome Is this a current diagnosis for this admission?: Yes (5) Urinary tract infection Qualifiers: Urinary tract infection type: site unspecified Hematuria presence: without hematuria Qualified Code(s): N39.0 - Urinary tract infection, site not specified Is this a current diagnosis for this admission?: Yes (6) Atrial fibrillation with RVR Is this a current diagnosis for this admission?: Yes (7) Anxiety Is this a current diagnosis for this admission?: Yes (8) Anemia Qualifiers: Anemia type: unspecified type Qualified Code(s): D64.9 - Anemia, unspecified Is this a current diagnosis for this admission?: Yes Plan: Status post blood transfusion - Time Time Spent with patient: 35 or more minutes Level of Care: IMCU
[2019-04-20] MEDS: ERTAPENEM SODIUM 1 GM in NORMAL SALINE 50 ML IV SCH (22:09)
[2019-04-20] MEDS: MELATONIN 3 MG TABLET PO SCH (23:35)
[2019-04-20] MEDS: TAMSULOSIN HCL 0.4 MG CAP.SR.24H PO SCH (23:35)
[2019-04-20] MEDS: MIRTAZAPINE 15 MG TABLET PO SCH (23:35)
[2019-04-21] MEDS: PANTOPRAZOLE SODIUM 20 MG TABLET.DR PO SCH (06:56)
[2019-04-21] MEDS: FLUTICASONE/VILANTEROL 200-25 MCG/DOSE IH SCH (11:42)
[2019-04-21] MEDS: MOXIFLOXACIN HCL 0.5% OPH SOLN 3 ML OD SCH ×4 (11:42→22:34)
[2019-04-21] MEDS: TERBINAFINE HCL 250 MG TABLET PO SCH (11:42)
[2019-04-21] MEDS: APIXABAN 5 MG TABLET PO SCH ×2 (11:42→18:17)
[2019-04-21] MEDS: BUSPIRONE HCL 10 MG TABLET PO SCH ×2 (11:42→22:29)
[2019-04-21] MEDS: UMECLIDINIUM BROMIDE 62.5 MCG/DOSE IH SCH (11:42)
[2019-04-21] MEDS: ROFLUMILAST 500 MCG TABLET PO SCH (11:43)
[2019-04-21] MEDS: DULOXETINE HCL 30 MG CAPSULE.DR PO SCH (11:43)
[2019-04-21] MEDS: DILTIAZEM HCL 180 MG CAPSULE.CR PO SCH (11:43)
[2019-04-21] MEDS: FINASTERIDE 5 MG TABLET PO SCH (11:43)
--- NOTE | 2019-04-21 15:04 | ADVANCED CARE ---
- Diagnosis (1) Sepsis Diagnosis Current: Yes (2) Acute respiratory failure with hypercapnia Diagnosis Current: Yes (3) Chronic obstructive pulmonary disease Diagnosis Current: Yes (4) Undernutrition syndrome Diagnosis Current: Yes (5) Urinary tract infection Diagnosis Current: Yes (6) Atrial fibrillation with RVR Diagnosis Current: Yes (7) Anxiety Diagnosis Current: Yes (8) Anemia Diagnosis Current: Yes Resuscitation Status: Do Not Resuscitate Discussion: I discussed CODE STATUS with patient, patient want to be DNR status
--- NOTE | 2019-04-21 15:13 | PDOC PROGRESS REPORT ---
Subjective Progress Note for:: 04/21/19 Subjective:: Patient seen by the bedside, his condition continues to deteriorate, he is not eating, is avidly requiring BiPAP to support breathing Reason For Visit: SEPSIS, ACUTE RESPIRATORY FAILURE, UTI Physical Exam Vital Signs: Temp Pulse Resp BP Pulse Ox 98.1 F 105 H 27 H 159/73 H 100 04/21/19 11:09 04/21/19 11:09 04/21/19 11:09 04/21/19 11:09 04/21/19 11:09 Intake & Output 04/20/19 04/21/19 04/22/19 06:59 06:59 06:59 Intake Total 2050 168 100 Output Total 400 Balance 1650 168 100 Weight 59.2 kg 58.8 kg General appearance: PRESENT: no acute distress Eye exam: PRESENT: PERRLA Respiratory exam: PRESENT: decreased breath sounds Cardiovascular exam: PRESENT: +S1, +S2 GI/Abdominal exam: PRESENT: soft Neurological exam: PRESENT: alert Results Laboratory Results: 04/20/19 04:19 04/20/19 04:19 04/14/19 04/14/19 04/14/19 15:26 21:52 21:52 Creatine Kinase 66 CK-MB (CK-2) Troponin I < 0.012 NT-Pro-B Natriuret Pep 382 04/14/19 04/15/19 04/15/19 21:52 03:58 03:58 Creatine Kinase 77 CK-MB (CK-2) 0.83 0.91 Troponin I 0.032 0.021 NT-Pro-B Natriuret Pep 04/15/19 04/15/19 11:24 11:24 Creatine Kinase 68 CK-MB (CK-2) 0.59 Troponin I 0.016 NT-Pro-B Natriuret Pep Impressions: Chest X-Ray 04/14/19 15:17 IMPRESSION: COPD. No acute findings. Assessment & Plan - Diagnosis (1) Sepsis Qualifiers: Sepsis type: Escherichia coli Sepsis acute organ dysfunction status: with acute organ dysfunction Severe sepsis acute organ dysfunction type: encephalopathy Severe sepsis shock status: with septic shock Qualified Code(s): A41.51 - Sepsis due to Escherichia coli [E. coli]; R65.21 - Severe sepsis with septic shock; G93.40 - Encephalopathy, unspecified Is this a current diagnosis for this admission?: Yes Plan: Continue IV antibiotic (2) Acute respiratory failure with hypercapnia Is this a current diagnosis for this admission?: Yes Plan: Continue NIPPV (3) Chronic obstructive pulmonary disease Is this a current diagnosis for this admission?: Yes (4) Undernutrition syndrome Is this a current diagnosis for this admission?: Yes (5) Urinary tract infection Qualifiers: Urinary tract infection type: site unspecified Hematuria presence: without hematuria Qualified Code(s): N39.0 - Urinary tract infection, site not specified Is this a current diagnosis for this admission?: Yes (6) Atrial fibrillation with RVR Is this a current diagnosis for this admission?: Yes (7) Anxiety Is this a current diagnosis for this admission?: Yes (8) Anemia Qualifiers: Anemia type: unspecified type Qualified Code(s): D64.9 - Anemia, unspecified Is this a current diagnosis for this admission?: Yes - Time Time Spent with patient: 35 or more minutes
[2019-04-21] MEDS: MONTELUKAST SODIUM 10 MG TABLET PO SCH (18:17)
[2019-04-21] MEDS: ERTAPENEM SODIUM 1 GM in NORMAL SALINE 50 ML IV SCH (22:11)
[2019-04-21] MEDS: MELATONIN 3 MG TABLET PO SCH (22:29)
[2019-04-21] MEDS: TAMSULOSIN HCL 0.4 MG CAP.SR.24H PO SCH (22:33)
[2019-04-21] MEDS: MIRTAZAPINE 15 MG TABLET PO SCH (22:38)
[2019-04-22] MEDS: PANTOPRAZOLE SODIUM 20 MG TABLET.DR PO SCH (05:16)
[2019-04-22] MEDS: BUSPIRONE HCL 10 MG TABLET PO SCH ×2 (11:04→22:02)
[2019-04-22] MEDS: DULOXETINE HCL 30 MG CAPSULE.DR PO SCH (11:04)
[2019-04-22] MEDS: FINASTERIDE 5 MG TABLET PO SCH (11:04)
[2019-04-22] MEDS: MOXIFLOXACIN HCL 0.5% OPH SOLN 3 ML OD SCH ×3 (11:04→18:02)
[2019-04-22] MEDS: APIXABAN 5 MG TABLET PO SCH ×2 (11:04→18:02)
[2019-04-22] MEDS: TERBINAFINE HCL 250 MG TABLET PO SCH (11:04)
[2019-04-22] MEDS: ROFLUMILAST 500 MCG TABLET PO SCH (11:04)
[2019-04-22] MEDS: DILTIAZEM HCL 180 MG CAPSULE.CR PO SCH (11:04)
[2019-04-22] MEDS: UMECLIDINIUM BROMIDE 62.5 MCG/DOSE IH SCH (11:05)
[2019-04-22] MEDS: FLUTICASONE/VILANTEROL 200-25 MCG/DOSE IH SCH (11:05)
--- NOTE | 2019-04-22 13:34 | PDOC PROGRESS REPORT ---
Subjective Progress Note for:: 04/22/19 Subjective:: Patient overall condition is very poor, he has been refusing food, he continues to require NIPPV Reason For Visit: SEPSIS, ACUTE RESPIRATORY FAILURE, UTI Physical Exam Vital Signs: Temp Pulse Resp BP Pulse Ox 98.0 F 97 20 140/76 H 100 04/22/19 08:20 04/22/19 08:20 04/22/19 08:20 04/22/19 08:20 04/22/19 08:20 Intake & Output 04/21/19 04/22/19 04/23/19 06:59 06:59 06:59 Intake Total 168 387 Balance 168 387 Weight 58.8 kg 57.3 kg General appearance: PRESENT: no acute distress Eye exam: PRESENT: PERRLA Respiratory exam: PRESENT: clear to auscultation usman Cardiovascular exam: PRESENT: +S1, +S2 GI/Abdominal exam: PRESENT: soft Neurological exam: PRESENT: alert Results Laboratory Results: 04/20/19 04:19 04/20/19 04:19 04/14/19 04/14/19 04/14/19 15:26 21:52 21:52 Creatine Kinase 66 CK-MB (CK-2) Troponin I < 0.012 NT-Pro-B Natriuret Pep 382 04/14/19 04/15/19 04/15/19 21:52 03:58 03:58 Creatine Kinase 77 CK-MB (CK-2) 0.83 0.91 Troponin I 0.032 0.021 NT-Pro-B Natriuret Pep 04/15/19 04/15/19 11:24 11:24 Creatine Kinase 68 CK-MB (CK-2) 0.59 Troponin I 0.016 NT-Pro-B Natriuret Pep Impressions: Chest X-Ray 04/14/19 15:17 IMPRESSION: COPD. No acute findings. Assessment & Plan - Diagnosis (1) Sepsis Qualifiers: Sepsis type: Escherichia coli Sepsis acute organ dysfunction status: with acute organ dysfunction Severe sepsis acute organ dysfunction type: encephalopathy Severe sepsis shock status: with septic shock Qualified Code(s): A41.51 - Sepsis due to Escherichia coli [E. coli]; R65.21 - Severe sepsis with septic shock; G93.40 - Encephalopathy, unspecified Is this a current diagnosis for this admission?: Yes (2) Acute respiratory failure with hypercapnia Is this a current diagnosis for this admission?: Yes (3) Chronic obstructive pulmonary disease Is this a current diagnosis for this admission?: Yes (4) Undernutrition syndrome Is this a current diagnosis for this admission?: Yes (5) Urinary tract infection Qualifiers: Urinary tract infection type: site unspecified Hematuria presence: without hematuria Qualified Code(s): N39.0 - Urinary tract infection, site not specified Is this a current diagnosis for this admission?: Yes (6) Atrial fibrillation with RVR Is this a current diagnosis for this admission?: Yes (7) Anxiety Is this a current diagnosis for this admission?: Yes (8) Anemia Qualifiers: Anemia type: unspecified type Qualified Code(s): D64.9 - Anemia, unspecified Is this a current diagnosis for this admission?: Yes - Time Time Spent with patient: 15-24 minutes
[2019-04-22] MEDS: MONTELUKAST SODIUM 10 MG TABLET PO SCH (18:02)
[2019-04-22] MEDS: ERTAPENEM SODIUM 1 GM in NORMAL SALINE 50 ML IV SCH (21:58)
[2019-04-22] MEDS: TAMSULOSIN HCL 0.4 MG CAP.SR.24H PO SCH (22:01)
[2019-04-22] MEDS: MIRTAZAPINE 15 MG TABLET PO SCH (22:02)
[2019-04-22] MEDS: MELATONIN 3 MG TABLET PO SCH (22:02)
[2019-04-23] MEDS: PANTOPRAZOLE SODIUM 20 MG TABLET.DR PO SCH (05:53)
[2019-04-23] MEDS: APIXABAN 5 MG TABLET PO SCH ×2 (09:05→17:23)
[2019-04-23] MEDS: DULOXETINE HCL 30 MG CAPSULE.DR PO SCH (09:05)
[2019-04-23] MEDS: ROFLUMILAST 500 MCG TABLET PO SCH (09:05)
[2019-04-23] MEDS: FINASTERIDE 5 MG TABLET PO SCH (09:05)
[2019-04-23] MEDS: FLUTICASONE/VILANTEROL 200-25 MCG/DOSE IH SCH (09:05)
[2019-04-23] MEDS: BUSPIRONE HCL 10 MG TABLET PO SCH ×2 (09:05→21:34)
[2019-04-23] MEDS: DILTIAZEM HCL 180 MG CAPSULE.CR PO SCH (09:05)
[2019-04-23] MEDS: UMECLIDINIUM BROMIDE 62.5 MCG/DOSE IH SCH (09:05)
[2019-04-23] MEDS ORDERED: DEXTROSE 50%-WATER 25 GM/50 ML DISP.SYRIN IV PRN ×2 (11:50)
[2019-04-23] MEDS ORDERED: GLUCAGON,HUMAN RECOMB 1 MG INJ SUBCUT PRN (11:50)
[2019-04-23] MEDS ORDERED: DEXTROSE 40% GEL 15 GM TUBE PO PRN ×2 (11:50)
--- NOTE | 2019-04-23 15:08 | PDOC PROGRESS REPORT ---
Subjective Progress Note for:: 04/23/19 Subjective:: The nurses said, it seems that the patient was aspirating today she kept him n.p.o. pending speech evaluation Reason For Visit: SEPSIS, ACUTE RESPIRATORY FAILURE, UTI Physical Exam Vital Signs: Temp Pulse Resp BP Pulse Ox 97.5 F 102 H 18 143/68 H 100 04/23/19 08:21 04/23/19 08:21 04/23/19 08:21 04/23/19 08:21 04/23/19 08:21 Intake & Output 04/22/19 04/23/19 04/24/19 06:59 06:59 06:59 Intake Total 387 50 50 Balance 387 50 50 Weight 57.3 kg 56.1 kg General appearance: PRESENT: no acute distress Eye exam: PRESENT: PERRLA Respiratory exam: PRESENT: clear to auscultation usman Cardiovascular exam: PRESENT: +S1, +S2 GI/Abdominal exam: PRESENT: soft Neurological exam: PRESENT: alert Results Laboratory Results: 04/20/19 04:19 04/20/19 04:19 04/19/19 00:20 Toe - Superficial Gram Stain - Final 04/19/19 00:20 Toe - Superficial Wound Culture - Final Skin Nevaeh 04/14/19 04/14/19 04/14/19 15:26 21:52 21:52 Creatine Kinase 66 CK-MB (CK-2) Troponin I < 0.012 NT-Pro-B Natriuret Pep 382 04/14/19 04/15/19 04/15/19 21:52 03:58 03:58 Creatine Kinase 77 CK-MB (CK-2) 0.83 0.91 Troponin I 0.032 0.021 NT-Pro-B Natriuret Pep 04/15/19 04/15/19 11:24 11:24 Creatine Kinase 68 CK-MB (CK-2) 0.59 Troponin I 0.016 NT-Pro-B Natriuret Pep Impressions: Chest X-Ray 04/14/19 15:17 IMPRESSION: COPD. No acute findings. Assessment & Plan - Diagnosis (1) Sepsis Qualifiers: Sepsis type: Escherichia coli Sepsis acute organ dysfunction status: with acute organ dysfunction Severe sepsis acute organ dysfunction type: encephalopathy Severe sepsis shock status: with septic shock Qualified Code(s): A41.51 - Sepsis due to Escherichia coli [E. coli]; R65.21 - Severe sepsis with septic shock; G93.40 - Encephalopathy, unspecified Is this a current diagnosis for this admission?: Yes (2) Acute respiratory failure with hypercapnia Is this a current diagnosis for this admission?: Yes (3) Chronic obstructive pulmonary disease Is this a current diagnosis for this admission?: Yes (4) Undernutrition syndrome Is this a current diagnosis for this admission?: Yes (5) Urinary tract infection Qualifiers: Urinary tract infection type: site unspecified Hematuria presence: without hematuria Qualified Code(s): N39.0 - Urinary tract infection, site not specified Is this a current diagnosis for this admission?: Yes (6) Atrial fibrillation with RVR Is this a current diagnosis for this admission?: Yes (7) Anxiety Is this a current diagnosis for this admission?: Yes (8) Anemia Qualifiers: Anemia type: unspecified type Qualified Code(s): D64.9 - Anemia, unspecified Is this a current diagnosis for this admission?: Yes - Time Time Spent with patient: 35 or more minutes - Plan Summary Plan Summary: Continue treatment overall prognosis is poor
[2019-04-23] MEDS: MONTELUKAST SODIUM 10 MG TABLET PO SCH (17:23)
[2019-04-23] MEDS: MIRTAZAPINE 15 MG TABLET PO SCH (21:35)
[2019-04-23] MEDS: MELATONIN 3 MG TABLET PO SCH (21:35)
[2019-04-23] MEDS: TAMSULOSIN HCL 0.4 MG CAP.SR.24H PO SCH (21:35)
[2019-04-23] MEDS: ERTAPENEM SODIUM 1 GM in NORMAL SALINE 50 ML IV SCH (21:40)
[2019-04-24] MEDS: PANTOPRAZOLE SODIUM 20 MG TABLET.DR PO SCH (05:00)
[2019-04-24] MEDS: APIXABAN 5 MG TABLET PO SCH (09:19)
[2019-04-24] MEDS: DULOXETINE HCL 30 MG CAPSULE.DR PO SCH (09:19)
[2019-04-24] MEDS: DILTIAZEM HCL 180 MG CAPSULE.CR PO SCH (09:19)
[2019-04-24] MEDS: FLUTICASONE/VILANTEROL 200-25 MCG/DOSE IH SCH (09:19)
[2019-04-24] MEDS: ROFLUMILAST 500 MCG TABLET PO SCH (09:19)
[2019-04-24] MEDS: BUSPIRONE HCL 10 MG TABLET PO SCH (09:19)
[2019-04-24] MEDS: FINASTERIDE 5 MG TABLET PO SCH (09:20)
[2019-04-24] MEDS: UMECLIDINIUM BROMIDE 62.5 MCG/DOSE IH SCH (09:20)
[2019-04-24] MEDS ORDERED: LORAZEPAM INJ 2 MG/1 ML VIAL IV PRN (16:14)
--- NOTE | 2019-04-24 16:18 | PDOC PROGRESS REPORT ---
Subjective Progress Note for:: 04/24/19 Subjective:: Patient condition extremely poor, he was seen by speech today, n.p.o. recommended for patient, he is not a candidate for PEG tube placement, the condition continues to tolerate. I spoke to patient's family and the POA, everyone is in agreement with changing status to comfort , patient is not expected to do well. Patient is moribund. Patient's condition continues to deteriorate despite appropriate treatment, he has ESBL E. coli septicemia on appropriate antibiotic despite all this patient is not responding, he has severe underlining chronic comorbid conditions including very severe COPD, severe malnutrition, poor function sedentary all these factors culminated in the poor outcome despite appropriate treatment. Reason For Visit: SEPSIS, ACUTE RESPIRATORY FAILURE, UTI Physical Exam Vital Signs: Temp Pulse Resp BP Pulse Ox 97.4 F 103 H 24 H 147/85 H 100 04/24/19 12:16 04/24/19 14:00 04/24/19 12:16 04/24/19 12:16 04/24/19 12:16 Intake & Output 04/23/19 04/24/19 04/25/19 06:59 06:59 06:59 Intake Total 50 100 0 Balance 50 100 0 Weight 56.1 kg 54.9 kg 54.9 kg Neurological exam: PRESENT: altered, other - He only grimaces to verbal command, no eye contact Results Laboratory Results: 04/20/19 04:19 04/20/19 04:19 04/19/19 00:20 Toe - Superficial Gram Stain - Final 04/19/19 00:20 Toe - Superficial Wound Culture - Final Skin Nevaeh 04/14/19 04/14/19 04/14/19 15:26 21:52 21:52 Creatine Kinase 66 CK-MB (CK-2) Troponin I < 0.012 NT-Pro-B Natriuret Pep 382 04/14/19 04/15/19 04/15/19 21:52 03:58 03:58 Creatine Kinase 77 CK-MB (CK-2) 0.83 0.91 Troponin I 0.032 0.021 NT-Pro-B Natriuret Pep 04/15/19 04/15/19 11:24 11:24 Creatine Kinase 68 CK-MB (CK-2) 0.59 Troponin I 0.016 NT-Pro-B Natriuret Pep Impressions: Chest X-Ray 04/14/19 15:17 IMPRESSION: COPD. No acute findings. Assessment & Plan - Diagnosis (1) Sepsis Qualifiers: Sepsis type: Escherichia coli Sepsis acute organ dysfunction status: with acute organ dysfunction Severe sepsis acute organ dysfunction type: encephalopathy Severe sepsis shock status: with septic shock Qualified Code(s): A41.51 - Sepsis due to Escherichia coli [E. coli]; R65.21 - Severe sepsis with septic shock; G93.40 - Encephalopathy, unspecified Is this a current diagnosis for this admission?: Yes (2) Acute respiratory failure with hypercapnia Is this a current diagnosis for this admission?: Yes (3) Chronic obstructive pulmonary disease Is this a current diagnosis for this admission?: Yes (4) Undernutrition syndrome Is this a current diagnosis for this admission?: Yes (5) Urinary tract infection Qualifiers: Urinary tract infection type: site unspecified Hematuria presence: without hematuria Qualified Code(s): N39.0 - Urinary tract infection, site not specified Is this a current diagnosis for this admission?: Yes (6) Atrial fibrillation with RVR Is this a current diagnosis for this admission?: Yes (7) Anxiety Is this a current diagnosis for this admission?: Yes (8) Anemia Qualifiers: Anemia type: unspecified type Qualified Code(s): D64.9 - Anemia, unspecified Is this a current diagnosis for this admission?: Yes - Time Time Spent with patient: 35 or more minutes
[2019-04-25] MEDS: HYDROMORPHONE HCL INJ/PF 2 MG/ML AMPULE IV PRN ×2 (04:13→21:11)
--- NOTE | 2019-04-25 14:44 | PDOC PROGRESS REPORT ---
Subjective Progress Note for:: 04/25/19 Subjective:: Patient is moribund. Remain on supplemental oxygen support. No reported fever or difficulty with breathing. Reason For Visit: SEPSIS, ACUTE RESPIRATORY FAILURE, UTI Physical Exam Vital Signs: Temp Pulse Resp BP Pulse Ox 97.4 F 112 H 13 103/51 L 100 04/25/19 08:03 04/25/19 08:03 04/25/19 08:03 04/25/19 08:03 04/25/19 08:03 Intake & Output 04/24/19 04/25/19 04/26/19 06:59 06:59 06:59 Intake Total 100 0 Balance 100 0 Weight 54.9 kg 54 kg Head exam: PRESENT: atraumatic, normocephalic Eye exam: PRESENT: conjunctiva pink, PERRLA. ABSENT: scleral icterus Ear exam: PRESENT: normal external ear exam Mouth exam: PRESENT: dry mucosa Respiratory exam: PRESENT: decreased breath sounds - at lung bases Cardiovascular exam: PRESENT: +S1, +S2, tachycardia. ABSENT: diastolic murmur, gallop, rubs, systolic murmur Vascular exam: ABSENT: pallor GI/Abdominal exam: PRESENT: normal bowel sounds, soft Extremities exam: ABSENT: pedal edema Neurological exam: PRESENT: altered - minimal response to painful stimuli na d mainly minimal withdrawal movement. Skin exam: PRESENT: dry, warm Results Laboratory Results: 04/20/19 04:19 04/20/19 04:19 04/14/19 04/14/19 04/14/19 15:26 21:52 21:52 Creatine Kinase 66 CK-MB (CK-2) Troponin I < 0.012 NT-Pro-B Natriuret Pep 382 04/14/19 04/15/19 04/15/19 21:52 03:58 03:58 Creatine Kinase 77 CK-MB (CK-2) 0.83 0.91 Troponin I 0.032 0.021 NT-Pro-B Natriuret Pep 04/15/19 04/15/19 11:24 11:24 Creatine Kinase 68 CK-MB (CK-2) 0.59 Troponin I 0.016 NT-Pro-B Natriuret Pep Impressions: Chest X-Ray 04/14/19 15:17 IMPRESSION: COPD. No acute findings. Assessment & Plan - Diagnosis (1) Protein-calorie undernutrition Qualifiers: Protein-calorie malnutrition severity: severe Qualified Code(s): E43 - Unspecified severe protein-calorie malnutrition Is this a current diagnosis for this admission?: Yes Plan: Continue supportive care. Overall prognosis remain very poor. (2) Chronic obstructive pulmonary disease Qualifiers: COPD type: unspecified COPD Qualified Code(s): J44.9 - Chronic obstructive pulmonary disease, unspecified Is this a current diagnosis for this admission?: Yes Plan: Continue supportive care. Overall prognosis remain very poor. - Time Time Spent with patient: 25-34 minutes Level of Care: IMCU Medications reviewed and adjusted accordingly: Yes Anticipated discharge: SNF, Hospice Within: Other - Inpatient Certification Based on my medical assessment, after consideration of the patient's comorb idities, presenting symptoms, or acuity I expect that the services needed warrant INPATIENT care.: Yes I certify that my determination is in accordance with my understanding of Medicare's requirements for reasonable and necessary INPATIENT services [42 CFR 412.3e].: Yes Medical Necessity: Significant Comorbidiites Make Outpatient Treatment Too Risky, Need Close Monitoring Due to Risk of Patient Decompensation, Need For Continuous Telemetry Monitoring, Need for Nebulizer Therapy and Monitoring of Response, Risk of Complication if Not Cared For in Hospital, Risk of Diagnosis Which Will Require Inpatient Eval/Care/Monitoring Post Hospital Care: D/C Chemist Internship Documentation - Plan Summary Plan Summary: Continue supportive care. Overall prognosis remain very poor.
[2019-04-26 01:14] VITALS: BP 106/50
--- NOTE | 2019-04-27 12:05 | Death Summary ---
Summary Date : 04/26/19 Time of :: 00:44 Resuscitation Status: Comfort Measures Only - Final Diagnosis (1) Sepsis Is this a current diagnosis for this admission?: Yes (2) Acute respiratory failure with hypercapnia Is this a current diagnosis for this admission?: Yes (3) Chronic obstructive pulmonary disease Is this a current diagnosis for this admission?: Yes (4) Undernutrition syndrome Is this a current diagnosis for this admission?: Yes (5) Urinary tract infection Is this a current diagnosis for this admission?: Yes (6) Atrial fibrillation with RVR Is this a current diagnosis for this admission?: Yes (7) Anxiety Is this a current diagnosis for this admission?: Yes (8) Anemia Is this a current diagnosis for this admission?: Yes (9) Septicemia due to Escherichia coli (E. coli) Is this a current diagnosis for this admission?: Yes Hospital Course:: Patient was admitted on 04/24/2019 when he presented with, fever with temperature 104, altered mental status, he has underlining multiple comorbid conditions including very severe chronic obstructive lung disease, malnutrition, BPH on presentation the clinical condition was consistent with severe sepsis, there was associated hypotension, encephalopathy acute hypercapnic respiratory acidosis with lactic acidosis, the respiratory system was supported with a noninvasive positive pressure ventilation, he was empirically treated with broad spectrum antibiotic. The blood culture grew ESBL E. coli, despite all this intervention patient condition continued to decline with diminished intake, he was also seen by speech because of risk of aspiration, the recommendation from speech was for patient to be kept n.p.o. After consultation with family it was felt that patient condition needed to be transitioned to comfort care, before the transition to comfort care was made a day ago before he he was made a DNR status, he ultimately 24 hours after the status was changed to comfort care
== END 2019-04-26 04:16 | DRG 871 ==
LOC: ER 15:09 → EH 18:20 → 3W 04-15 15:30
PROVIDERS: ADMIT Internal Medicine; ATTEND Internal Medicine
PROC: 5A09557 Assistance with Respiratory Ventilation, Greater than 96 Consecutive Hours, Continuous Positive Airway Pressure (ICD-10-PCS; principal; 2019-04-14)
PROC: 3E0234Z Introduction of Serum, Toxoid and Vaccine into Muscle, Percutaneous Approach (ICD-10-PCS; 2019-04-14)
PROC: 30233N1 Transfusion of Nonautologous Red Blood Cells into Peripheral Vein, Percutaneous Approach (ICD-10-PCS; 2019-04-19)
DX: A41.51 Sepsis due to Escherichia coli [E. coli] (principal); J96.02 Acute respiratory failure with hypercapnia; R65.21 Severe sepsis with septic shock; E43 Unspecified severe protein-calorie malnutrition; G93.40 Encephalopathy, unspecified; N39.0 Urinary tract infection, site not specified; Z16.12 Extended spectrum beta lactamase (ESBL) resistance; Z68.1 Body mass index [BMI] 19.9 or less, adult; J43.9 Emphysema, unspecified; D64.9 Anemia, unspecified; I48.0 Paroxysmal atrial fibrillation; K21.9 Gastro-esophageal reflux disease without esophagitis; I73.9 Peripheral vascular disease, unspecified; N40.0 Benign prostatic hyperplasia without lower urinary tract symptoms; B96.20 Unspecified Escherichia coli [E. coli] as the cause of diseases classified elsewhere; F41.9 Anxiety disorder, unspecified; Z79.01 Long term (current) use of anticoagulants; Z79.51 Long term (current) use of inhaled steroids; Z79.899 Other long term (current) drug therapy; Z23 Encounter for immunization
CPT/HCPCS: 36415; 36430; 51701; 71045; 80053; 80061; 80307; 81001; 82140; 82150; 82550; 82553; 82803; 82962; 83036; 83605; 83690; 83735; 83880; 84100; 84439; 84443; 84484; 85025; 85610; 85730; 86850; 86900; 86901; 86920; 87040; 87070; 87077; 87086; 87088; 87150; 87186; 87205; 90686; 93005; 93010; 93925; 94660; 96361; 96374; 99291; J1170; J1335; J2060; J2543; J2930; J3370; J3490; J7030; J7040; J7050; J7120; J7620; P9016